=== PATIENT | female | born 1930 | race Caucasian/White ===

== ENCOUNTER 2016-09-03 00:19 | Emergency (ER) | payer MEDICARE ==
[2016-09-03] MEDS ORDERED: fentaNYL* 50 MCG/ML 2 ML VIAL (100 MCG VIAL) IV SLOW PU ONE (02:03)
[2016-09-03 03:04] LABS: Hematocrit 46 % (35-47); Mean Corpuscular HGB Conc 33 g/dl (31-36); Mean Corpuscular Hemoglobin 28 pg (27-31); Mean Corpuscular Volume 85 fL (80-97); Mean Platelet Volume 11 um3 (7.4-10.4); Red Blood Count 5.38 10^6/ul (4.0-5.4); Red Cell Distribution Width 19 % (10.5-15); White Blood Count 13.4 10^3/ul (3.5-10.8)
[2016-09-03 03:20] LABS: Albumin 3.8 g/dL (3.2-5.2); BUN/Creatinine Ratio 21.5 (8-20); Calcium 9.4 mg/dL (8.6-10.3); EGFR African American 54.4 (>60); EGFR Non-African American 42.3 (>60); Globulin 2.6 g/dL (2-4); Potassium 4.8 mmol/L (3.5-5.0); Total Protein 6.4 g/dL (6.4-8.9)
[2016-09-03] MEDS ORDERED: NS 0.9% 1000 ML* 1,000 ML IV ONE (03:23)
[2016-09-03] MEDS ORDERED: fentaNYL PATCH 25 MCG/HR TRANSDERM ONE (03:35)
[2016-09-03 03:56] LABS: Erythrocyte Sed Rate 16 mm/Hr (0-40)
[2016-09-03 04:37] VITALS: BP 106/69
[2016-09-03 06:05] LABS: Urine Bacteria Absent (Absent); Urine Bilirubin Negative (Negative); Urine Glucose Negative (Negative); Urine Nitrite Negative (Negative)
--- NOTE | 2016-09-03 06:11 | ED ---
Bob Ramon Aidan, scribed for Jaquelin Smiley MD on 09/03/16 at 0216 . Back Pain - HPI Summary HPI Summary: 85 y/o female presents to the ED with a complaint of acute, constant, severe (9/ 10), worsening lower back pain that has persisted for about a week or so. Today , the pain became so bad that she was barely able to move. Her pain is aggravated by movement. Hx of chronic back problems, a back injury from skiing years ago, Hx of compression fractures in the back, and Hx of head injury that occurred 60-70 years ago. She was previously diagnosed with multiple myeloma, however, her physician discovered that she does not have multiple myeloma. - History of Current Complaint Stated Complaint: BACK PAIN Time Seen by Provider: 09/03/16 00:46 Hx Obtained From: Patient Hx Last Menstrual Period: unknown Onset/Duration: Sudden Onset, Lasting Weeks, Still Present Onset/Duration: Started Weeks Ago, Still Present Timing: Constant, Lasting Weeks Back Pain Location: Is Discrete @ - lower back Severity Initially: Severe Severity Currently: Severe Pain Intensity: 9 Pain Scale Used: 0-10 Numeric Character: Sharp, Aching Aggravating Symptom(s): Movement Alleviating Symptom(s): Nothing - Morphine alleviates pain Associated Signs And Symptoms: Positive: Negative Related History: Previous Back Injury - with chronic back pain - Allergies/Home Medications Allergies/Adverse Reactions: Allergies Allergy/AdvReac Type Severity Reaction Status Date / Time No Known Allergies Allergy Verified 06/16/15 05:53 PMH/Surg Hx/FS Hx/Imm Hx Endocrine/Hematology History: Denies: Hx Diabetes, Hx Systemic Lupus Erythematosus, Hx Thyroid Disease Cardiovascular History: Reports: Hx Angina, Hx Congestive Heart Failure, Hx Hypercholesterolemia, Other Cardiovascular Problems/Disorders - TACHYCARDIA YEARS AGO Denies: Hx Coronary Artery Disease, Hx Hypertension, Hx Myocardial Infarction , Hx Pacemaker/ICD, Hx Peripheral Vascular Disease, Hx Valvular Heart Disease - ONE TIME VALSAVALSA SYNCOPE Respiratory History: Reports: Hx Pneumonia, Other Respiratory Problems/ Disorders - 06/2011- PNEUMONIA- HAD FLUID REMOVED FROM LUNG Denies: Hx Asthma, Hx Chronic Obstructive Pulmonary Disease (COPD) GI History: Reports: Hx Gastroesophageal Reflux Disease, Other GI Disorders - COLON POLYPS REMOVED- BENIGN History: Reports: Other Problems/Disorders - HX OF BLADDER INFECTION Denies: Hx Dialysis, Hx Renal Disease Musculoskeletal History: Denies: Hx Arthritis, Hx Rheumatoid Arthritis, Hx Osteoporosis Sensory History: Reports: Hx Cataracts, Hx Contacts or Glasses - GLASSES, Hx Hearing Aid Opthamlomology History: Reports: Hx Cataracts, Hx Contacts or Glasses - GLASSES Neurological History: Denies: Hx Seizures, Hx Transient Ischemic Attacks (TIA) Psychiatric History: Denies: Hx Panic Disorder - Cancer History Cancer Type, Location and Year: LEVEL 1 Breast CA Hx Chemotherapy: No Hx Radiation Therapy: No - Surgical History Surgery Procedure, Year, and Place: Lt breast lumpectomy a few years ago; hysterectomy; tonsillectomy; pt wears bilateral hearing aids. Hx Anesthesia Reactions: No Infectious Disease History: Reports: Hx Hepatitis - NO PROBLEMS NOW - Family History Known Family History: Positive: Hypertension - Social History Occupation: Retired [facility]: [facility] Alcohol Use: None Substance Use Type: Reports: None Hx Tobacco Use: No Smoking Status (MU): Never Smoked Tobacco Review of Systems Constitutional: Negative Eyes: Negative ENT: Negative Cardiovascular: Negative Respiratory: Negative Gastrointestinal: Negative Genitourinary: Negative Positive: Arthralgia - back pain. Negative: Myalgia, Decreased ROM, Edema Skin: Negative Neurological: Negative Psychological: Normal All Other Systems Reviewed And Are Negative: Yes Physical Exam - Summary Physical Exam Summary: General: Well appearing, no pain distress Skin: Warm, Skin Color Reflects Adequate Perfusion, Dry Eyes: EOMI, CHITRA ENT: Pharynx normal, TMs normal Neck: Supple, nontender Respiratory: CTA, breath sounds present, no rhonchi, no wheezes, no rales Cardiovascular: RRR, no murmur, no rub, no gallop Abdomen: Soft, nontender, Non-distended, no guarding, no rebound Bowel: Present Musculoskeletal: VIVIEN; POSITIVE: L3 back tenderness, 2+ edema up to the thighs Neuro: Sensory/motor intact, A&Ox3, CN intact 2-12 Psych: Affect/mood appropriate Triage Information Reviewed: Yes Vital Signs On Initial Exam: Initial Vitals Resp 18 09/03/16 02:21 Diagnostics - Vital Signs Vital Signs Pulse Resp BP Pulse Ox 09/03/16 04:56 16 09/03/16 04:34 90 16 106/69 95 09/03/16 03:30 90 16 94/60 96 09/03/16 02:30 90 16 112/76 91 09/03/16 02:21 18 - Laboratory Lab Results: Lab Results 09/03/16 09/03/16 09/03/16 Range/Units 02:50 02:50 05:45 WBC 13.4 H (3.5-10.8) 10^3/ul RBC 5.38 (4.0-5.4) 10^6/ul Hgb 15.0 (12.0-16.0) g/dl Hct 46 (35-47) % MCV 85 (80-97) fL MCH 28 (27-31) pg MCHC 33 (31-36) g/dl RDW 19 H (10.5-15) % Plt Count 188 (150-450) 10^3/ul MPV 11 H (7.4-10.4) um3 Neut % (Auto) 80.8 (38-83) % Lymph % (Auto) 8.1 L (25-47) % [place] % (Auto) 10.1 H (1-9) % Eos % (Auto) 0.3 (0-6) % Baso % (Auto) 0.7 (0-2) % Absolute Neuts (auto) 10.8 H (1.5-7.7) 10^3/ul Absolute Lymphs (auto) 1.1 (1.0-4.8) 10^3/ul Absolute Monos (auto) 1.4 H (0-0.8) 10^3/ul Absolute Eos (auto) 0 (0-0.6) 10^3/ul Absolute Basos (auto) 0.1 (0-0.2) 10^3/ul Absolute Nucleated RBC 0.01 10^3/ul Nucleated RBC % 0.1 ESR 16 (0-40) mm/Hr Sodium 129 L (133-145) mmol/L Potassium 4.8 (3.5-5.0) mmol/L Chloride 92 L (101-111) mmol/L Carbon Dioxide 31 (22-32) mmol/L Anion Gap 6 (2-11) mmol/L BUN 26 H (6-24) mg/dL Creatinine 1.21 H (0.51-0.95) mg/dL Est GFR ( Amer) 54.4 (>60) Est GFR (Non-Af Amer) 42.3 (>60) BUN/Creatinine Ratio 21.5 H (8-20) Glucose 142 H (70-100) mg/dL Calcium 9.4 (8.6-10.3) mg/dL Total Bilirubin 2.00 H (0.2-1.0) mg/dL AST 21 (13-39) U/L ALT 13 (7-52) U/L Alkaline Phosphatase 354 H (34-104) U/L Total Protein 6.4 (6.4-8.9) g/dL Albumin 3.8 (3.2-5.2) g/dL Globulin 2.6 (2-4) g/dL Albumin/Globulin Ratio 1.5 (1-3) Urine Color Shi Urine Appearance Cloudy Urine pH 5.0 (5-9) Ur Specific [place] 1.019 (1.010-1.030) Urine Protein 2+(100 mg/dl) H (Negative) Urine Ketones Negative (Negative) Urine Blood 1+ H (Negative) Urine Nitrate Negative (Negative) Urine Bilirubin Negative (Negative) Urine Urobilinogen Negative (Negative) Ur Leukocyte Esterase Negative (Negative) Urine WBC (Auto) Trace(0-5/hpf) (Absent) Urine RBC (Auto) 3+(>10/hpf) H (Absent) Ur Squamous Epith Cells Present H (Absent) Urine Bacteria Absent (Absent) Hyaline Casts Present H (Absent) Urine Glucose Negative (Negative) Result Diagrams: 09/03/16 02:50 09/03/16 02:50 Lab Statement: Any lab studies that have been ordered have been reviewed, and results considered in the medical decision making process. - CT LUMBAR SPINE CT CT Interpretation: Positive (See Comments) - IMPRESSION: Age-indeterminate compression fracture of L1 likely chronic, not seen on the prior examination. 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 Pt sent with a 25 mcg patch on. pt had mildly elevated wbc urine showed rbc's but no bacteria and wbc and will be cultured - Diagnoses Provider Diagnoses: Lumbar pain Discharge - Discharge Plan Condition: Stable Disposition: HOME The documentation as recorded by the Bob agrawal Aidan accurately reflects the service I personally performed and the decisions made by me, Jaquelin Smiley MD.
--- NOTE | 2016-09-03 13:04 | RAD ---
INDICATION: Exacerbation of chronic back pain in a patient with multiple myeloma COMPARISON: MRI of the lumbar spine with and without contrast dated February 12, [address] abdomen pelvis dated May 07, 2015. TECHNIQUE: Contiguous axial sections were obtained beginning lower thoracic vertebra and continuing through the sacrum. Images were reconstructed in the sagittal and coronal planes. FINDINGS: There is compression deformity of the L1 vertebral body similar in appearance to the previous CT examination. There is sclerotic change and shortening of the inferior endplate of L3 and the superior endplate of L4, also similar to the previous CT examination. Degenerative changes include loss of intervertebral disc height and vacuum disc phenomenon at the lower lumbar levels. The vacuum disc phenomenon at L4/L5 is new when compared to the previous CT examination. There is no hyperdense material in the thecal canal to indicate acute hemorrhage. Degenerative changes at multiple lumbar levels appear to cause central canal stenosis. There is a partially visualized right pleural effusion. Atherosclerotic calcification is seen at the infrarenal abdominal aorta extending into the bilateral iliac arteries. IMPRESSION: 1. Chronic and degenerative changes of the lumbar spine as described above. New findings since the May 07, 2015 CT of the abdomen and pelvis include vacuum disc phenomenon at L4/L5. 2. There is likely central canal or neural foraminal stenoses at the lower lumbar levels. If it will influence clinical management further characterization can be made with MRI of the lumbar spine. 3. There is a partially visualized right-sided pleural effusion that may be unchanged since the May 25, 2015 CT of the chest. The left pleural effusion appears to have resolved that was seen on the previous chest CT.
== END 2016-09-03 06:38 | disposition home or self-care (01) ==
LOC: ED 00:19
DX: M54.5 Low back pain (principal); I20.9 Angina pectoris, unspecified; I50.9 Heart failure, unspecified; E78.00 Pure hypercholesterolemia, unspecified; K21.9 Gastro-esophageal reflux disease without esophagitis; Z85.3 Personal history of malignant neoplasm of breast; Z90.12 Acquired absence of left breast and nipple; Z90.710 Acquired absence of both cervix and uterus
CPT/HCPCS: 36415; 72131; 80053; 81003; 81015; 85025; 85652; 96361; 96374; 99283; A9270-GY; J3010

== ENCOUNTER 2017-05-07 20:12 | Emergency (ER) | payer MEDICARE ==
[2017-05-07] MEDS ORDERED: NS 0.9% 1000 ML* 1,000 ML IV ONE (20:48)
--- NOTE | 2017-05-07 21:33 | RAD ---
INDICATION: Intracranial injury COMPARISON: CT brain June 16, 2015 TECHNIQUE: Noncontrast axial source images were acquired from the skull base to the vertex. FINDINGS: Ventricles/sulci: There is cortical atrophy with compensatory dilatation of the CSF spaces. Brain parenchyma: There is periventricular and subcortical white matter change compatible with chronic ischemia. Intracranial hemorrhage:None. Extra-axial spaces: There are no abnormal extra axial fluid collections or evidence of extra-axial mass. Calvarium: There is no calvarial fracture or other calvarial abnormality. Scalp: There is no evidence of scalp or extracalvarial soft tissue abnormality. Paranasal sinuses/mastoid: The paranasal sinuses and mastoid air cells are clear. Other: None. IMPRESSION: CORTICAL ATROPHY WITH CHRONIC MICROVASCULAR ISCHEMIC CHANGES. NO ACUTE FINDINGS.
--- NOTE | 2017-05-07 21:36 | RAD ---
INDICATION: Injury. Syncope. COMPARISON: Chest x-ray June 16, 2015; CTA chest May 25, 2015 TECHNIQUE: AP seated and lateral views were obtained. FINDINGS: Bones/Soft Tissues: There are no acute bony findings. There is osteopenia with kyphosis and multiple mid thoracic compression deformities. Compression deformities were present on the earlier CT as well but these may have progressed. Cardiomediastinal: The cardiac silhouette is mildly enlarged. Lungs: There is mild bibasilar hypoventilation. There are mild chronic appearing interstitial changes Pleura: There are bilateral pleural effusions right greater than left. Other: None IMPRESSION: MILD CHRONIC APPEARING INTERSTITIAL CHANGES WITH BIBASILAR HYPOVENTILATION AND SMALL BILATERAL EFFUSIONS.
--- NOTE | 2017-05-07 21:40 | RAD ---
INDICATION: Left shoulder pain COMPARISON: None TECHNIQUE: Routine frontal, Y and axial views were obtained. FINDINGS: There is marked osteopenia. There are cortical irregularities about the greater tuberosity which could be related to a prior injury. If there is persistent pain, suggest follow-up. 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 There are findings of calcific tendinitis. IMPRESSION: NO ACUTE FINDINGS.. UNDERLYING OSTEOARTHRITIS AND CALCIFIC TENDINITIS
[2017-05-07 22:07] LABS: INR 1.09 (0.77-1.02)
[2017-05-07 22:13] LABS: ABS Basophils 0 10^3/ul (0-0.2); ABS Eosinophils 0.1 10^3/ul (0-0.6); ABS Lymphocytes 0.8 10^3/ul (1.0-4.8); ABS Monocytes 0.6 10^3/ul (0-0.8); ABS Neutrophils 6.5 10^3/ul (1.5-7.7); ABS Nucleated RBC 0 10^3/ul; Eosinophil % 0.7 % (0-6); Hematocrit 46 % (35-47); Hemoglobin 15.4 g/dl (12.0-16.0); Mean Corpuscular HGB Conc 33 g/dl (31-36); Mean Corpuscular Hemoglobin 30 pg (27-31); Mean Corpuscular Volume 92 fL (80-97); Mean Platelet Volume 10 um3 (7.4-10.4); Nucleated Red Blood Cells % 0.1; Platelet Count 196 10^3/ul (150-450); Red Blood Count 5.07 10^6/ul (4.0-5.4); Red Cell Distribution Width 15 % (10.5-15)
[2017-05-07 22:19] LABS: EGFR Non-African American 40.3 (>60)
[2017-05-07 23:12] VITALS: BP 123/82
--- NOTE | 2017-05-08 05:57 | ED ---
Pratik Ramon Julia, scribed for Trino Aguilar MD on 05/07/17 at 2050 . Syncope/Near Syncope - HPI Summary HPI Summary: This patient is a 86 year old F BIBA to [facility] due to a syncopal fall occurring a few hours ago. Patient reports chest pain, L shoulder pain, and L knee pain. The patient rates the pain 2/10 in severity. She states she does not know what happened before she fell, and woke up on the ground with her current symptoms. Patient has a history of multiple myoloma and compression fractures of the spine. Patient has MOLST, limiting care. - History Of Current Complaint Chief Complaint: EDChestPainROMI Time Seen by Provider: 05/07/17 20:31 Hx Obtained From: Patient, Medical Records Onset/Duration: Sudden Onset Context: Unwitnessed - unknown, Loss Of Consciousness Activity At Onset: Other - standing Associated Signs And Symptoms: Chest Pain, Other - L shoulder and L knee Related History: Similar Episode/Dx as - mulitiple myoloma, compression fx - Allergies/Home Medications Allergies/Adverse Reactions: Allergies Allergy/AdvReac Type Severity Reaction Status Date / Time No Known Allergies Allergy Verified 06/16/15 05:53 Home Medications: Home Medications Acetaminophen TAB* [Tylenol TAB*] 650 mg PO Q6H PRN 05/07/17 [History Confirmed 05/07/17] Al Hydrox/Mg Hydrox/Vanna BULK* [Mylanta - BULK BOT*] 15 ml PO Q4HR PRN 05/07/17 [History Confirmed 05/07/17] Calcitonin NASAL(NF) [Fortical(NR)] 1 spray NASAL DAILY 05/07/17 [History Confirmed 05/07/17] Carbamide Peroxide 6.5% OTIC* [DEBROX 6.5% Otic*] 5 drop BOTH EARS MONTHLY 05/07 [History Confirmed 05/07/17] Cholecalciferol (Vitamin D3) [Vitamin D3] 1,000 unit PO DAILY 05/07/17 [History Confirmed 05/07/17] Conjugated Estrogens VAG CM* [Premarin VAG CREAM*] 1 applic VAGINAL WEEKLY 05/07 [History Confirmed 05/07/17] Cyanocobalamin (Vitamin B-12) [Vitamin B-12] 500 mcg SL DAILY 05/07/17 [History Confirmed 05/07/17] Cyclophosphamide 50 mg PO WEEKLY 05/07/17 [History Confirmed 05/07/17] Fondaparinux* [Arixtra*] 7.5 mg SUBCUT DAILY 05/07/17 [History Confirmed ] Metoprolol Tartrate TAB* [Lopressor TAB*] 12.5 mg PO BID 05/07/17 [History Confirmed 05/07/17] Morphine Sulfate [Morphine Sulfate ER] 60 mg PO Q8HR 05/07/17 [History Confirmed 05/07/17] Ondansetron ODT TAB* [Zofran 4 MG Odt TAB*] 8 mg PO TID PRN 05/07/17 [History Confirmed 05/07/17] Potassium Chlor TAB (NF) [Kaon-Cl-10 TAB (NF)] 10 meq PO BID 05/07/17 [History Confirmed 05/07/17] Sennosides/Docusate Sodium [Senna-S Tablet] 2 tab PO BID PRN 05/07/17 [History Confirmed 05/07/17] Sucralfate SUSP (NF) [Carafate SUSP (NF)] 10 ml PO Q6HR PRN 05/07/17 [History Confirmed 05/07/17] PMH/Surg Hx/FS Hx/Imm Hx Endocrine/Hematology History: Denies: Hx Diabetes, Hx Systemic Lupus Erythematosus, Hx Thyroid Disease Cardiovascular History: Reports: Hx Angina, Hx Congestive Heart Failure, Hx Hypercholesterolemia, Other Cardiovascular Problems/Disorders - TACHYCARDIA YEARS AGO Denies: Hx Coronary Artery Disease, Hx Hypertension, Hx Myocardial Infarction , Hx Pacemaker/ICD, Hx Peripheral Vascular Disease, Hx Valvular Heart Disease - ONE TIME VALSAVALSA SYNCOPE Respiratory History: Reports: Hx Pneumonia, Other Respiratory Problems/ Disorders - 06/2011- PNEUMONIA- HAD FLUID REMOVED FROM LUNG Denies: Hx Asthma, Hx Chronic Obstructive Pulmonary Disease (COPD) GI History: Reports: Hx Gastroesophageal Reflux Disease, Other GI Disorders - COLON POLYPS REMOVED- BENIGN History: Reports: Other Problems/Disorders - HX OF BLADDER INFECTION Denies: Hx Dialysis, Hx Renal Disease Musculoskeletal History: Denies: Hx Arthritis, Hx Rheumatoid Arthritis, Hx Osteoporosis Sensory History: Reports: Hx Cataracts, Hx Contacts or Glasses - GLASSES, Hx Hearing Aid Opthamlomology History: Reports: Hx Cataracts, Hx Contacts or Glasses - GLASSES Neurological History: Denies: Hx Seizures, Hx Transient Ischemic Attacks (TIA) Psychiatric History: Denies: Hx Panic Disorder - Cancer History Cancer Type, Location and Year: LEVEL 1 Breast CA. multiple myolma Hx Chemotherapy: Yes Hx Radiation Therapy: No - Surgical History Surgery Procedure, Year, and Place: Lt breast lumpectomy a few years ago; hysterectomy; tonsillectomy; pt wears bilateral hearing aids. Hx Anesthesia Reactions: No Infectious Disease History: Yes Infectious Disease History: Reports: Hx Hepatitis - NO PROBLEMS NOW Denies: Traveled Outside the [place] in Last 30 Days - Family History Known Family History: Positive: Hypertension - Social History Lives: [facility] Alcohol Use: None Substance Use Type: Reports: None Hx Tobacco Use: No Smoking Status (MU): Never Smoked Tobacco Review of Systems Positive: Chest Pain Positive: Myalgia - L shoulder and L knee All Other Systems Reviewed And Are Negative: Yes Physical Exam - Summary Physical Exam Summary: Appearance: Well appearing, no pain distress, Fenanol patch on L chest Skin: warm, dry, reflects adequate perfusion Head/face: abrasion to nose and upper lip and midline, no swelling of the scalp Eyes: EOMI, CHITRA, implanted lenses bilaterally ENT: dried blood in R nare Neck: supple, non-tender Respiratory: CTA, breath sounds present Cardiovascular: RRR, pulses symmetrical Abdomen: dsitened abdomen, tympanic, nontender soft Bowel: present Musculoskeletal: , strength/ROM intact, kyphotic curve to thoracic spin, nakul cool to touch BLE up to knees, no bruises or abrasions to extremities, bilateral pitting edema to knees Neuro: normal, sensory motor intact, A&Ox3 Triage Information Reviewed: Yes Vital Signs On Initial Exam: Initial Vitals Temp Pulse Resp BP Pulse Ox 97.9 F 82 16 123/80 95 05/07/17 20:21 05/07/17 20:21 05/07/17 20:21 05/07/17 20:21 05/07/17 20:21 Vital Signs Reviewed: Yes Diagnostics - Vital Signs Vital Signs Temp Pulse Resp BP Pulse Ox 05/07/17 20:21 97.9 F 82 16 123/80 95 - Laboratory Lab Results: Lab Results 05/07/17 05/07/17 05/07/17 Range/Units 21:50 21:50 21:50 WBC 8.0 (3.5-10.8) 10^3/ul RBC 5.07 (4.0-5.4) 10^6/ul Hgb 15.4 (12.0-16.0) g/dl Hct 46 (35-47) % MCV 92 (80-97) fL MCH 30 (27-31) pg MCHC 33 (31-36) g/dl RDW 15 (10.5-15) % Plt Count 196 (150-450) 10^3/ul MPV 10 (7.4-10.4) um3 Neut % (Auto) 81.3 (38-83) % Lymph % (Auto) 10.0 L (25-47) % [place] % (Auto) 7.6 (1-9) % Eos % (Auto) 0.7 (0-6) % Baso % (Auto) 0.4 (0-2) % Absolute Neuts (auto) 6.5 (1.5-7.7) 10^3/ul Absolute Lymphs (auto) 0.8 L (1.0-4.8) 10^3/ul Absolute Monos (auto) 0.6 (0-0.8) 10^3/ul Absolute Eos (auto) 0.1 (0-0.6) 10^3/ul Absolute Basos (auto) 0 (0-0.2) 10^3/ul Absolute Nucleated RBC 0 10^3/ul Nucleated RBC % 0.1 INR (Anticoag Therapy) 1.09 H (0.77-1.02) Sodium 134 (133-145) mmol/L Potassium 4.2 (3.5-5.0) mmol/L Chloride 92 L (101-111) mmol/L Carbon Dioxide 35 H (22-32) mmol/L Anion Gap 7 (2-11) mmol/L BUN 53 H (6-24) mg/dL Creatinine 1.26 H (0.51-0.95) mg/dL Est GFR ( Amer) 51.8 (>60) Est GFR (Non-Af Amer) 40.3 (>60) BUN/Creatinine Ratio 42.1 H (8-20) Glucose 185 H (70-100) mg/dL Calcium 9.9 (8.6-10.3) mg/dL Total Bilirubin 1.00 (0.2-1.0) mg/dL AST 24 (13-39) U/L ALT 15 (7-52) U/L Alkaline Phosphatase 358 H (34-104) U/L Total Protein 7.1 (6.4-8.9) g/dL Albumin 4.3 (3.2-5.2) g/dL Globulin 2.8 (2-4) g/dL Albumin/Globulin Ratio 1.5 (1-3) Result Diagrams: 05/07/17 21:50 05/07/17 21:50 Lab Statement: Any lab studies that have been ordered have been reviewed, and results considered in the medical decision making process. - Radiology CXR Radiology Interpretation Completed By: Radiologist - MILD CHRONIC APPEARING INTERSTITIAL CHANGES WITH BIBASILAR HYPOVENTILATION AND SMALL BILATERAL EFFUSIONS. ED Physician has reviewed this report. Shoulder Radiology Interpretation Completed By: Radiologist - NO ACUTE FINDINGS.. UNDERLYING OSTEOARTHRITIS AND CALCIFIC TENDINITIS. ED Physician has reviewed this report. - CT Brain CT Interpretation Completed By: Radiologist - CORTICAL ATROPHY WITH CHRONIC MICROVASCULAR ISCHEMIC CHANGES. NO ACUTE FINDINGS. ED Physician has reviewed this report. - EKG 1999 Cardiac Rate: NL - at 77 BPM EKG Rhythm: Sinus Rhythm ST Segment: Non-Specific EKG Interpretation: normal axis artifact through inferior leads Course/Dx Course Of Treatment: Pt with mult minor injuries. In SNF with MOLST indicating DNR with comfort care/limited care. Pt found to have no sakshi injuries. Hydrated and stable for discharge. F/U with PMD. - Diagnoses Provider Diagnoses: Syncope, Facial abrasion, Closed head injury, Multiple contusions Discharge - Discharge Plan Condition: Good Disposition: [facility] FACILITY Patient Education Materials: Syncope (ED), Head Injury (ED) Referrals: Isidra Beckwith MD [Primary Care Provider] - Additional Instructions: Assist with restroom. No new fractures noted. No new pain. Follow up with primary doctor with call in morning. Return if worse, new symptoms or other concerns. The documentation as recorded by the Pratik agrawal Julia accurately reflects the service I personally performed and the decisions made by , Trino Aguilar MD.
== END 2017-05-07 23:28 ==
LOC: ED 20:12
DX: S00.81XA Abrasion of other part of head, initial encounter (principal); S09.90XA Unspecified injury of head, initial encounter; S00.83XA Contusion of other part of head, initial encounter; R07.9 Chest pain, unspecified; M25.512 Pain in left shoulder; M25.562 Pain in left knee; R55 Syncope and collapse; W19.XXXA Unspecified fall, initial encounter; Y92.9 Unspecified place or not applicable
CPT/HCPCS: 36415; 70450; 71046; 80053; 85025; 85610; 93005; 96360; 96361; 99284

== ENCOUNTER 2017-09-06 11:23 | Inpatient (IN) | payer MEDICARE, OTHER ==
[2017-09-06 12:41] LABS: Urine Appearance Cloudy; Urine Blood Negative (Negative); Urine Color Amber; Urine Ketones Negative (Negative); Urine Protein Negative (Negative); Urine Specific Gravity 1.013 (1.010-1.030); Urine Urobilinogen Negative (Negative)
--- NOTE | 2017-09-06 13:07 | RAD ---
INDICATION: Weakness, fall. COMPARISON: Comparison is made with prior chest x-ray study from May 07, 2017. Correlation is also made with a study from December 21, 2014. TECHNIQUE: A single AP view of the chest was obtained. FINDINGS: The heart is moderately enlarged and unchanged from the prior exam. There is a small 6 mm a nodule which projects over the right upper lobe which is unchanged most consistent with old granulomatous disease. There is mild prominence of the interstitial markings and small bilateral pleural effusions suggestive of mild congestive heart failure. IMPRESSION: FINDINGS SUGGESTIVE OF MILD CONGESTIVE HEART FAILURE.
--- NOTE | 2017-09-06 13:08 | RAD ---
Indication: Right hip injury. 2 views of the right hip and AP view the pelvis demonstrates fracture through the neck of the right femur with overriding of the fracture fragments. Pelvic ring is intact. IMPRESSION: Fracture through the neck of the right femur with overriding of the fracture fragments.
[2017-09-06 13:10] LABS: ABS Basophils 0 10^3/ul (0-0.2); ABS Eosinophils 0 10^3/ul (0-0.6); ABS Lymphocytes 0.8 10^3/ul (1.0-4.8); ABS Monocytes 0.8 10^3/ul (0-0.8); ABS Nucleated RBC 0 10^3/ul; Eosinophil % 0.1 % (0-6); Hematocrit 48 % (35-47); Lymphocyte % 6.7 % (25-47); Mean Corpuscular HGB Conc 34 g/dl (31-36); Mean Corpuscular Hemoglobin 31 pg (27-31); Mean Corpuscular Volume 92 fL (80-97); Mean Platelet Volume 9.4 um3 (7.4-10.4); Nucleated Red Blood Cells % 0.2; Platelet Count 367 10^3/ul (150-450); Red Blood Count 5.22 10^6/ul (4.00-5.40); Red Cell Distribution Width 17 % (10.5-15); White Blood Count 11.6 10^3/ul (3.5-10.8)
[2017-09-06] MEDS: NS 0.9% 1000 ML* 1,000 ML IV SCH ×3 (13:19→21:55)
[2017-09-06 13:30] LABS: INR 1.17 (0.77-1.02)
[2017-09-06 13:36] LABS: EGFR Non-African American 35.9 (>60)
--- NOTE | 2017-09-06 14:50 | RAD ---
Indication: Right hip fracture. CT of the pelvis was obtained in the axial plane. Sagittal and coronal reconstructed images were obtained. There is a mildly comminuted fracture of the neck of the right femur. There appears to be diffuse osteopenia noted. Overriding of the fracture fragments is noted. The pelvic ring is grossly intact. The lower lumbar spine and pelvis are otherwise unremarkable. The gallbladder is low-lying and within the pelvis with likely milk of calcium in the dependent portion of the gallbladder which is within the iliac fossa. IMPRESSION: Mildly comminuted fracture neck of the femur with overriding of the fracture fragments.
--- NOTE | 2017-09-06 15:10 | ED ---
Isabel Ramon Jade, scribed for Shayan Garrett MD on 09/06/17 at 1205 . Lower Extremity - HPI Summary HPI Summary: Pt is an 86 y/o female BIBA who c/o right hip pain s/p fall. She was found this morning by EMS, and the pt is unsure whether the fall was this morning or last night. Pt was going to the bathroom without her walker and fell on her right hip. Pain is described as 8/10 in severity and is sharp in quality. She denies any LOC or abdominal pain. Pt cannot move her right leg due to pain. She also states her mouth feels very dry. - History of Current Complaint Stated Complaint: ABD PAIN Time Seen by Provider: 09/06/17 11:42 Hx Obtained From: Patient, EMS Hx Last Menstrual Period: unknown Mechanism Of Injury: Fall From A Standing Position Onset/Duration: Still Present Severity Currently: Severe Pain Intensity: 8 Pain Scale Used: 0-10 Numeric Timing: Constant Location: Is Discrete @ - Right hip Character Of Pain: Sharp Associated Signs And Symptoms: Negative: Abdominal Pain Aggravating Factor(s): Movement Alleviating Factor(s): Nothing Able to Bear Weight: No - Allergies/Home Medications Allergies/Adverse Reactions: Allergies Allergy/AdvReac Type Severity Reaction Status Date / Time No Known Allergies Allergy Verified 06/16/15 05:53 Home Medications: Home Medications Conjugated Estrogens VAG CM* [Premarin VAG CREAM*] 1 applic VAGINAL MOFR [History Confirmed 09/06/17] DULoxetine DR CAP* [Cymbalta CAP*] 20 mg PO DAILY 09/06/17 [History Confirmed ] Docusate CAP* [Colace Cap*] 200 mg PO DAILY PRN 09/06/17 [History Confirmed ] Fluoride (Sodium) [Prevident 5000 Plus] 1.1 % PO BID 09/06/17 [History Confirmed 09/06/17] Saliva Substitute (NF) [Biotene Moisturizing Mouth (NF)] 2 spray PO QAM [History Confirmed 09/06/17] Spironolactone TAB* [Aldactone TAB*] 25 mg PO BID 09/06/17 [History Confirmed ] fentaNYL PATCH 12 MCG/HR * [Duragesic Patch 12 Mcg/Hr *] 12 mcg TRANSDERM Q72H 09/06/17 [History Confirmed 09/06/17] PMH/Surg Hx/FS Hx/Imm Hx Endocrine/Hematology History: Denies: Hx Diabetes, Hx Systemic Lupus Erythematosus, Hx Thyroid Disease Cardiovascular History: Reports: Hx Angina, Hx Congestive Heart Failure, Hx Hypercholesterolemia, Other Cardiovascular Problems/Disorders - TACHYCARDIA YEARS AGO Denies: Hx Coronary Artery Disease, Hx Hypertension, Hx Myocardial Infarction , Hx Pacemaker/ICD, Hx Peripheral Vascular Disease, Hx Valvular Heart Disease - ONE TIME VALSAVALSA SYNCOPE Respiratory History: Reports: Hx Pneumonia, Other Respiratory Problems/ Disorders - 06/2011- PNEUMONIA- HAD FLUID REMOVED FROM LUNG Denies: Hx Asthma, Hx Chronic Obstructive Pulmonary Disease (COPD) GI History: Reports: Hx Gastroesophageal Reflux Disease, Other GI Disorders - COLON POLYPS REMOVED- BENIGN History: Reports: Other Problems/Disorders - HX OF BLADDER INFECTION Denies: Hx Dialysis, Hx Renal Disease Musculoskeletal History: Denies: Hx Arthritis, Hx Rheumatoid Arthritis, Hx Osteoporosis Sensory History: Reports: Hx Cataracts, Hx Contacts or Glasses - GLASSES, Hx Hearing Aid Opthamlomology History: Reports: Hx Cataracts, Hx Contacts or Glasses - GLASSES Neurological History: Denies: Hx Seizures, Hx Transient Ischemic Attacks (TIA) Psychiatric History: Denies: Hx Panic Disorder - Cancer History Cancer Type, Location and Year: LEVEL 1 Breast CA. multiple myolma Hx Chemotherapy: Yes Hx Radiation Therapy: No - Surgical History Surgery Procedure, Year, and Place: Lt breast lumpectomy a few years ago; hysterectomy; tonsillectomy; pt wears bilateral hearing aids. Hx Anesthesia Reactions: No Infectious Disease History: Reports: Hx Hepatitis - NO PROBLEMS NOW - Family History Known Family History: Positive: Hypertension - Social History Alcohol Use: None Substance Use Type: Reports: None Hx Tobacco Use: No Smoking Status (MU): Never Smoked Tobacco Review of Systems Negative: Abdominal Pain Positive: Arthralgia - Right hip pain Neurological: Other - NEGATIVE: LOC All Other Systems Reviewed And Are Negative: Yes Physical Exam - Summary Physical Exam Summary: General: well-appearing, no pain distress Skin: warm, color reflects adequate perfusion, dry Head: normal Eyes: EOMI, CHITRA ENT: oral mucosa dry. Neck: supple, nontender Respiratory: CTA, breath sounds present Cardiovascular: RRR Abdomen: soft, nontender Bowel: present Musculoskeletal: Tender to palpation to right hip. Right leg is slightly shortened and externally rotated. Neurological: sensory/motor intact, A&O x3 Psychological: affect/mood appropriate Triage Information Reviewed: Yes Vital Signs On Initial Exam: Initial Vitals Temp Pulse Resp BP Pulse Ox 98.1 F 109 18 104/65 95 09/06/17 11:40 09/06/17 11:40 09/06/17 11:40 09/06/17 11:40 09/06/17 11:40 Vital Signs Reviewed: Yes Diagnostics - Vital Signs Vital Signs Temp Pulse Resp BP Pulse Ox 09/06/17 11:40 98.1 F 109 18 104/65 95 - Laboratory Lab Results: Lab Results 09/06/17 09/06/17 09/06/17 Range/Units 12:22 12:24 12:25 WBC 11.6 H (3.5-10.8) 10^3/ul RBC 5.22 (4.00-5.40) 10^6/ul Hgb 16.0 (12.0-16.0) g/dl Hct 48 H (35-47) % MCV 92 (80-97) fL MCH 31 (27-31) pg MCHC 34 (31-36) g/dl RDW 17 H (10.5-15) % Plt Count 367 (150-450) 10^3/ul MPV 9.4 (7.4-10.4) um3 Neut % (Auto) 85.9 H (38-83) % Lymph % (Auto) 6.7 L (25-47) % [place] % (Auto) 7.1 H (0-7) % Eos % (Auto) 0.1 (0-6) % Baso % (Auto) 0.2 (0-2) % Absolute Neuts (auto) 10.0 H (1.5-7.7) 10^3/ul Absolute Lymphs (auto) 0.8 L (1.0-4.8) 10^3/ul Absolute Monos (auto) 0.8 (0-0.8) 10^3/ul Absolute Eos (auto) 0 (0-0.6) 10^3/ul Absolute Basos (auto) 0 (0-0.2) 10^3/ul Absolute Nucleated RBC 0 10^3/ul Nucleated RBC % 0.2 INR (Anticoag Therapy) 1.17 H (0.77-1.02) APTT 32.7 (26.0-36.3) seconds Sodium (135-145) mmol/L Potassium Chloride (101-111) mmol/L Carbon Dioxide (22-32) mmol/L Anion Gap (2-11) mmol/L BUN (6-24) mg/dL Creatinine (0.51-0.95) mg/dL Est GFR ( Amer) (>60) Est GFR (Non-Af Amer) (>60) BUN/Creatinine Ratio (8-20) Glucose (70-100) mg/dL Lactic Acid (0.5-2.0) mmol/L Calcium (8.6-10.3) mg/dL Magnesium (1.9-2.7) mg/dL Total Bilirubin (0.2-1.0) mg/dL AST ALT (7-52) U/L Alkaline Phosphatase (34-104) U/L Troponin I (<0.04) ng/mL C-Reactive Protein (<8.01) mg/L B-Natriuretic Peptide ( - 100) pg/mL Total Protein (6.4-8.9) g/dL Albumin (3.2-5.2) g/dL Globulin (2-4) g/dL Albumin/Globulin Ratio (1-3) Lipase (11.0-82.0) U/L TSH (0.34-5.60) mcIU/mL Urine Color Shi Urine Appearance Cloudy Urine pH 5.0 (5-9) Ur Specific [place] 1.013 (1.010-1.030) Urine Protein Negative (Negative) Urine Ketones Negative (Negative) Urine Blood Negative (Negative) Urine Nitrate Negative (Negative) Urine Bilirubin Negative (Negative) Urine Urobilinogen Negative (Negative) Ur Leukocyte Esterase Negative (Negative) Urine Glucose Negative (Negative) 09/06/17 09/06/17 09/06/17 Range/Units 12:25 12:25 12:25 WBC (3.5-10.8) 10^3/ul RBC (4.00-5.40) 10^6/ul Hgb (12.0-16.0) g/dl Hct (35-47) % MCV (80-97) fL MCH (27-31) pg MCHC (31-36) g/dl RDW (10.5-15) % Plt Count (150-450) 10^3/ul MPV (7.4-10.4) um3 Neut % (Auto) (38-83) % Lymph % (Auto) (25-47) % [place] % (Auto) (0-7) % Eos % (Auto) (0-6) % Baso % (Auto) (0-2) % Absolute Neuts (auto) (1.5-7.7) 10^3/ul Absolute Lymphs (auto) (1.0-4.8) 10^3/ul Absolute Monos (auto) (0-0.8) 10^3/ul Absolute Eos (auto) (0-0.6) 10^3/ul Absolute Basos (auto) (0-0.2) 10^3/ul Absolute Nucleated RBC 10^3/ul Nucleated RBC % INR (Anticoag Therapy) (0.77-1.02) APTT (26.0-36.3) seconds Sodium 133 L (135-145) mmol/L Potassium TNP Chloride 93 L (101-111) mmol/L Carbon Dioxide 28 (22-32) mmol/L Anion Gap 12 H (2-11) mmol/L BUN 68 H (6-24) mg/dL Creatinine 1.39 H (0.51-0.95) mg/dL Est GFR ( Amer) 43.5 (>60) Est GFR (Non-Af Amer) 35.9 (>60) BUN/Creatinine Ratio 48.9 H (8-20) Glucose 153 H (70-100) mg/dL Lactic Acid 1.9 (0.5-2.0) mmol/L Calcium 9.5 (8.6-10.3) mg/dL Magnesium 2.5 (1.9-2.7) mg/dL Total Bilirubin 1.80 H (0.2-1.0) mg/dL AST TNP ALT 11 (7-52) U/L Alkaline Phosphatase 262 H (34-104) U/L Troponin I 0.07 H* (<0.04) ng/mL C-Reactive Protein 79.77 H (<8.01) mg/L B-Natriuretic Peptide 705 H ( - 100) pg/mL Total Protein 6.7 (6.4-8.9) g/dL Albumin 3.9 (3.2-5.2) g/dL Globulin 2.8 (2-4) g/dL Albumin/Globulin Ratio 1.4 (1-3) Lipase < 10 L (11.0-82.0) U/L TSH 2.94 (0.34-5.60) mcIU/mL Urine Color Urine Appearance Urine pH (5-9) Ur Specific [place] (1.010-1.030) Urine Protein (Negative) Urine Ketones (Negative) Urine Blood (Negative) Urine Nitrate (Negative) Urine Bilirubin (Negative) Urine Urobilinogen (Negative) Ur Leukocyte Esterase (Negative) Urine Glucose (Negative) Result Diagrams: 09/06/17 12:25 09/06/17 12:25 Lab Statement: Any lab studies that have been ordered have been reviewed, and results considered in the medical decision making process. - Radiology Hip/Pel XR Xray Interpretation: Positive (See Comments) - 11:53: Fracture through the neck of the right femur with overriding of the fracture fragments. ED physician reviewed radiology report. Radiology Interpretation Completed By: Radiologist CXR Xray Interpretation: Positive (See Comments) - 11:52: FINDINGS SUGGESTIVE OF MILD CONGESTIVE HEART FAILURE. ED physician reviewed radiology report. Radiology Interpretation Completed By: Radiologist - EKG 12:06 Cardiac Rate: Tachycardia - 129 bpm EKG Rhythm: Sinus Rhythm Ectopy: PACs - Posterior EKG Interpretation: Flipped Ts in inferior and lateral leads, ectopic atrial tachycardia Lower Extremity Course/Dx - Course Course Of Treatment: DISCUSSED WITH DR YESENIA CHAN. SHE ASKED FOR THE HOSPITALIST TO ADMIT THE PATIENT. DR CHAN ALSO TOLD ME THAT THE PATIENT'S ORTHOPEDIST PREFERENCE IS DR ABDI[facility]. DISCUSSED WITH THE HOSPITALIST AND DR KEYS. ADMIT HOSPITALIST. - Diagnoses Provider Diagnoses: Closed right hip fracture, Fall Discharge - Sign-Out/Discharge Documenting (check all that apply): Discharge/Admit/Transfer - Admit - Discharge Plan Condition: Stable Disposition: ADMITTED TO [facility] Referrals: Yesenia Chan MD [Primary Care Provider] - - Billing Disposition and Condition Condition: STABLE Disposition: Admitted to [facility] The documentation as recorded by the Isabel agrawal Jade accurately reflects the service I personally performed and the decisions made by me, Shayan Garrett MD.
[2017-09-06] MEDS ORDERED: NS 0.9% 500 ML* 500 ML IV ONE (16:17)
[2017-09-06] MEDS ORDERED: Albuterol 2.5 MG/3 ML NEB.SOL* (0.083%) INH PRN (16:36)
[2017-09-06] MEDS ORDERED: Ondansetron INJ* 2 MG/ML VIAL IV PRN (16:36)
[2017-09-06] MEDS ORDERED: Al Hydrox/Mg Hydrox/Simet LIQ* 30 ML UDC PO PRN (16:36)
[2017-09-06] MEDS ORDERED: Magnesium Hydroxide LIQ* 30 ML UDC PO PRN (16:36)
[2017-09-06] MEDS ORDERED: Artificial Tears* 15 ML BTL BOTH EYES PRN (16:51)
[2017-09-06] MEDS ORDERED: Loperamide CAP* 2 MG PO PRN (16:51)
[2017-09-06] MEDS ORDERED: Morphine VIAL* 4 MG/ML VIAL (1 ml vial) IV ONE (17:59)
--- NOTE | 2017-09-06 18:01 | RAD ---
INDICATION: Fall. COMPARISON: Comparison is made with a prior chest x-ray study from 5 hours earlier. TECHNIQUE: A portable view of the chest was obtained. FINDINGS: The heart is moderately enlarged and unchanged from the prior exam. There is a small calcified nodule which projects over the right upper lobe consistent with old granulomatous disease. There is mild prominence of the interstitial markings and small bilateral pleural effusions which appear unchanged suggestive of congestive heart failure. No pneumothorax is seen. IMPRESSION: FINDINGS SUGGESTIVE OF CONGESTIVE HEART FAILURE, UNCHANGED.
[2017-09-06] MEDS: fentaNYL PATCH 12 MCG/HR TRANSDERM SCH (19:00)
[2017-09-06] MEDS: oxyCODONE/Acetamin 5/325 MG* TAB PO PRN (19:02)
[2017-09-06] MEDS: Morphine VIAL* 4 MG/ML VIAL (1 ml vial) IV PRN (19:47)
[2017-09-06] MEDS ORDERED: Diltiazem IV VIAL* 125 MG in NS 0.9% 100 ML* 100 ML IVPB SCH (20:30)
[2017-09-06] MEDS ORDERED: Heparin VIAL(*) 5000 UNITS/ML VIAL (FIVE THOUSAND) SUBCUT SCH (22:00)
[2017-09-06] MEDS ORDERED: Digoxin IV* 0.5 MG/2 ML AMP (0.25 MG/ML) IV SLOW PU ONE (23:36)
[2017-09-06] MEDS: Metoprolol Tartrate TAB* 25 MG PO SCH (23:37)
[2017-09-06] MEDS: Morphine TAB Extended Release (*) 30 MG TAB.ER PO SCH (23:38)
[2017-09-06] MEDS: Pregabalin CAP(*) 25 MG PO SCH (23:57)
[2017-09-06] MEDS: Omeprazole CAP* 20 MG PO SCH (23:57)
[2017-09-06] MEDS: Docusate CAP* 100 MG PO SCH (23:58)
[2017-09-07] MEDS: Spironolactone TAB* 25 MG PO SCH ×3 (00:03→20:36)
--- NOTE | 2017-09-07 00:03 | CONS ---
CONSULTATION REPORT: DATE OF CONSULT: 09/06/17 EMERGENCY ROOM PROVIDER: Dr. Shayan Garrett. ATTENDING PHYSICIAN: Dr. Delvis Hinojosa. CHIEF COMPLAINT: Right hip pain. HISTORY OF PRESENT ILLNESS: The patient is an 86-year-old female, who lives at [place], who was brought in by ambulance complaining of right hip pain status post fall. She was found this morning on the ground. The patient is unable to tell me whether the fall was this morning or last night. Reportedly, she was going to the bathroom without her walker and fell onto her right hip. She is unable to give me a numeric value for pain, though is expressing it to be severe. The patient is unable to move her right leg due to pain. Her primary complaint right now is thirst. Today, she has not eaten. She had a small amount of juice at an undetermined time today. The patient denies any history of other fractures. She denies any history of heart attack, stroke, or difficulty with anesthesia. PAST MEDICAL HISTORY: Includes angina, congestive heart failure, hypercholesterolemia, tachycardia in past years. She denies any history of heart attack. Respiratory: Has a history of pneumonia. Denies any asthma or COPD. History of GERD. Denies any history of stroke. Does have a history of breast cancer and multiple myeloma. Does have a history of hepatitis, but no current problems. PAST SURGICAL HISTORY: Includes left breast lumpectomy, hysterectomy, tonsillectomy. SOCIAL HISTORY: Nonsmoker. REVIEW OF SYSTEMS: Denies head pain. Cardiac: Denies chest pain. Denies history of heart attack. Pulmonary: Denies difficulty breathing. GI: Denies any abdominal pain, nausea, vomiting, diarrhea. Musculoskeletal: Confirms right hip pain. Neuro: Denies history of stroke. Hematology: Denies any history of blood clot. PHYSICAL EXAM: Vitals: Temperature 98.1, pulse 109, respiratory rate 18, oxygen saturation 95%, blood pressure 104/65. General: The patient is groaning in pain. Head: Normocephalic, atraumatic. Eyes: EOMI. Mouth: Dry mucosa. Respiratory: Clear to auscultation bilaterally. Cardio: Regular rate and rhythm. Abdomen: Soft, nontender. No notable masses. Musculoskeletal: No cervical spine tenderness. Moves upper extremities well without tenderness. Left lower extremity is without tenderness and she moves her ankle, hip and knee well. She is unwilling to move her right lower extremity at the hip, knee or ankle due to pain. The skin envelope is intact. She does not have any obvious bruising. Her right leg is short and externally rotated. Sensation is intact to light touch throughout the right lower extremity. DP and PT pulses are 2+. Her bilateral feet are hyperpigmented with purple discoloration consistent bilaterally. Capillary refill is within 2 seconds. Neurologic: The patient is very slow to respond and does not respond to some of my questions with routine long pauses and sometimes no answer at all, questions she does respond to have appropriate answers. DIAGNOSTIC STUDIES/LAB DATA: Lab studies: White blood cell count 11.9, hemoglobin 16.0, hematocrit 48. INR 1.17. Sodium 133, chloride 93. Troponin 0.07. CRP 79. BNP is 705. Reports: Chest x-ray, interpretation by radiologist: Findings suggestive of mild CHF. EKG demonstrates ectopic atrial tachycardia, unifocal abnormal P axis , ventricular rate of more than 99, bigeminy, rightward QRS axis. Hip and pelvis x- ray, Radiology interpretation: Fracture of the neck of the right femur with overriding of the fracture fragments and pelvis CT interpretation by Radiology shows mildly comminuted fracture of the neck of the femur with overriding of the fracture fragments. ASSESSMENT: Right femoral neck fracture. PLAN: The patient will be admitted by hospitalist team. She will be medically optimized, at which time, we will bring her to OR for a hemiarthroplasty. She will likely go to the OR in the coming days, for now she may resume her normal diet and be on anticoagulation until the night before surgery. GIANLUCA ZAMORA [id number]/[facility] #: [id number] ROGELIO
--- NOTE | 2017-09-07 01:09 | HP ---
CC: Isidra Beckwith MD * ADMISSION HISTORY AND PHYSICAL: DATE OF ADMISSION: 09/06/17 PATIENT OF: Graciela Zeus * (DICTATED BY GIANLUCA PENA) PRIMARY CARE PHYSICIAN: Isidra Beckwith MD CHIEF COMPLAINT: Right hip pain. HISTORY OF PRESENT ILLNESS: Ms. Robledo is a pleasant 86-year-old female, who carries a quite complicated past medical history significant for breast cancer, recurrent urinary tract infection, recent diagnosis of amyloidosis of the spinal cord, osteopenia, peripheral neuropathy, diastolic heart failure and hyperlipidemia who was seen by Dr. Beckwith last night at her residence in [facility] for a regular checkup. The patient has been a resident of [facility] for 2 years now. She was qualified for a hospice care prior to her admission given her chronic disease and heart failure; however, she eventually got better and was sent to the alf. She presented to the emergency room today after she was brought from her residence at [facility] where she was found to be on the bathroom floor. According to the nursing staff note, the resident was placed on her side with a pillow after she was found on the bathroom floor. She has physical assessment done and no injury initially was noted and was able to move her extremities. Eventually, when the patient stood up with assistance, she started to bear weight on her right foot when immediately she felt discomfort to the right hip. She was taken back to her bed on a wheelchair and Dr. Beckwith was notified, who recommended sending the patient to the ED for further evaluation. Unfortunately, the patient had workup including pelvic x-ray that revealed a right femoral neck fracture. The patient herself is a relatively poor historian; however, she answers questions regarding pain and other needs. She is not sure if she had any head injury or loss of consciousness, however again according to the staff at [facility] report there was no head trauma or loss of consciousness. I have spoken earlier with Dr. Beckwith regarding the patient who has a complicated past medical history and has been DNR for a while. I have expressed with the patient the major question regarding operative intervention to correct her hip fracture versus comfort care measures if she wishes to do so. At this point, during admission time, the patient wishes to be treated and for which Orthopedic consult was obtained in anticipation for possible surgery later on during this admission. At the time of her ED visit, she complains of intermittent right hip pain and spasm. She prior to her presentation has been declining both physically and mentally. Prior to that, she has been doing well after she was "graduated" from hospice care. Looking back to her record showing that she had an echocardiogram done in May of 2015 that showed ejection fraction of 55% to 60% . Other than her hip pain, she denies any chest pain, palpitation, shortness of breath or tachypnea. She was noted to have hypotension and tachycardia during her ED stay, likely related to dehydration. Given her ongoing symptoms and the findings of her hip fracture, we were asked to see the patient to consider admission. PAST MEDICAL HISTORY: Multiple problems, most recently diagnosed with amyloidosis of the spinal cord. She also has other autoimmune diseases that have been worked up. Also history of breast cancer, diagnosed in 2011, status post wide excision with sentinel lymph node biopsy and she has been on letrozole ; also history of urinary tract infection; melanoma in situ; hearing loss; low back pain; hyperlipidemia; osteopenia; cystic right ovary; diastolic heart failure; systolic murmur; osteoarthritis; peripheral neuropathy and history of pneumonia with pleural effusion years ago. PAST SURGICAL HISTORY: Significant for wide excision with sentinel lymph node biopsy due to history of breast cancer in 2011. She also has hysterectomy in 1994, melanoma in situ excision, excision of angiolipoma of the forearm in 2001 , laparoscopic bilateral salpingo-oophorectomy back in 2006. CURRENT MEDICATIONS: Her medications at [facility] according to the attached file include: 1. Tylenol 650 mg p.o. q.6 hours as needed for pain or fever. 2. Mylanta 15 mL p.o. q.4 hours as needed for indigestion. 3. Artificial Tears 2 drops both eyes as needed for dry eyes. 4. Conjugated estrogen vaginal cream as directed. 5. Colace 200 mg p.o. daily. 6. Cymbalta 20 mg p.o. daily. 7. Fentanyl patch 12 mcg transdermal q.72 hours. 8. PreviDent 1.1% p.o. b.i.d. 9. Lasix 120 mg p.o. daily. 10. Imodium 2 mg p.o. q.4 hours as needed for diarrhea. 11. Metoprolol 12.5 mg p.o. b.i.d. 12. Morphine sulfate 60 mg p.o. b.i.d. 13. Prilosec 40 mg p.o. b.i.d. 14. Zofran 8 mg p.o. t.i.d. p.r.n. for nausea. 15. Roxicodone 5 mg p.o. q.3 hours as needed for pain. 16. Lyrica 25 mg p.o. b.i.d. 17. Saliva substitute 2 sprays q.a.m. 18. Senna tablet 2 tablets p.o. b.i.d. p.r.n. for constipation. 19. Spironolactone 25 mg p.o. b.i.d. ALLERGIES: She has no known drug allergies. FAMILY HISTORY: Positive for cancer. Unable to give any information at this time. SOCIAL HISTORY: The patient is . She lives alone at [facility]. She is retired. DNR forms and MOLST form are updated from [facility]. She has a healthcare proxy to her son, Sebastien Robledo, who lives in [place]. REVIEW OF SYSTEMS: See HPI. Otherwise, 14 points review of systems were reviewed and were otherwise negative. PHYSICAL EXAMINATION GENERAL: She is a frail, elderly female, lying on her bed in position, in sight discomfort, but in no acute distress at the time of admission. VITAL SIGNS: Revealed temperature of 98.1, blood pressure of 104/65, pulse of 109, respirations of 18 and O2 sat of 95% on 2 L oxygen. HEENT: Head is normocephalic, atraumatic. Sclerae anicteric. PERRLA. EOMs intact. Oropharynx is dry. NECK: Supple. Trachea midline. No cervical adenopathy noted. LUNGS: Clear to auscultation bilaterally. HEART: Rapid sinus rhythm noted, but no rubs or murmurs. BACK: With normal curvature and no CVA tenderness. ABDOMEN: Soft, nontender, nondistended. No hernias or masses noted. EXTREMITIES: Without cyanosis, clubbing or edema. There is moderate tenderness along the greater trochanteric area of the right hip. Right lower extremity appeared to be slightly shorter and externally rotated just by inspection. No other lesions, ecchymosis noted to upper extremities. NEUROLOGIC: Sensation intact. Bilateral handgrip is equal and tongue is midline. RECTAL: Exam deferred at this time. LABORATORY WORKUP: CBC today with white count of 11,600, hemoglobin 16, hematocrit of 48, and platelets of 367. Chemistry panel with sodium of 133, potassium 4.6, chloride 93, CO2 of 28, BUN 68, and creatinine of 1.4. Her troponin is 0.07. Total creatine kinase is 705. ACCESSORY DIAGNOSTIC DATA: As mentioned above, pelvic CT scan that was done after her hip and pelvis x-ray showing mildly comminuted fracture of femoral neck on the right side. IMPRESSION: An 86-year-old female with a very complicated past medical history including hypertension, diastolic heart failure, history of breast cancer and recently diagnosed with amyloidosis of the spinal cord as well as cystic right ovary, systolic murmurs, hyperlipidemia and osteopenia, who sustained a fall at her alf residence and sustained a right femoral neck fracture. ASSESSMENT AND PLAN: 1. Right hip fracture. The patient will be admitted to medical floor and we will try to medically optimize her in anticipation for surgical intervention. At this point, we will focus on her pain control. She appears to be dehydrated as well given her tachycardia; however, we will provide gentle hydration given her history of diastolic heart failure, for which she has been on chronically on Lasix. I will also check her labs in the morning given her renal insufficiency that again appears to be a lot more than her baseline probably secondary to dehydration. Case was discussed with Dr. Beckwith who will resume her care in the morning. 2. Diastolic congestive heart failure. Again, the patient has last echocardiogram done in May of 2015 with ejection fraction of 55% to 60%. I will review with Dr. Beckwith if there is a need to repeat her echocardiogram assuming medical clearance prior to her anticipated hip nailing if indicated. She appears to be stable at that point. 3. Amyloidosis. Amyloidosis is a recent diagnosis to the patient, appears to be autoimmune in nature. According to the workup, appears to be stable at this time. 4. Hyperlipidemia. We will continue her statin. 5. Chronic nausea, constipation. We will continue symptomatic treatment and supportive care. 6. History of multiple myeloma. 7. Supraventricular tachycardia. Appears to be a chronic issue. We will provide gentle hydration. 8. Gastroesophageal reflux disease. We will continue her PPI coverage. 9. Disposition. Admit to medical floor for medical optimization. Orthopedic consult is pending at this time. The patient will be evaluated by Dr. Beckwith tomorrow and again at the time of admission, she is wishing to proceed with surgery if medically stable. TIME SPENT: Approximately 60-minute was spent admitting this patient including more than 50% of this time obtaining history and performing physical exam. GIANLUCA PENA [id number]/[facility] #: [id number] ROGELIO
[2017-09-07] MEDS: oxyCODONE/Acetamin 5/325 MG* TAB PO PRN (05:05)
[2017-09-07] MEDS ORDERED: Famotidine IV* 10 MG/ML 2 ML (20 mg) IV ONE (06:00)
[2017-09-07 06:53] LABS: ABS Basophils 0 10^3/ul (0-0.2); ABS Eosinophils 0 10^3/ul (0-0.6); ABS Lymphocytes 0.7 10^3/ul (1.0-4.8); ABS Monocytes 0.8 10^3/ul (0-0.8); ABS Neutrophils 10.6 10^3/ul (1.5-7.7); ABS Nucleated RBC 0.1 10^3/ul; Eosinophil % 0 % (0-6); Hematocrit 48 % (35-47); Lymphocyte % 5.7 % (25-47); Mean Corpuscular HGB Conc 33 g/dl (31-36); Mean Corpuscular Hemoglobin 31 pg (27-31); Mean Corpuscular Volume 92 fL (80-97); Mean Platelet Volume 9.2 um3 (7.4-10.4); Nucleated Red Blood Cells % 0.5; Platelet Count 363 10^3/ul (150-450); Red Cell Distribution Width 17 % (10.5-15); White Blood Count 12.1 10^3/ul (3.5-10.8)
[2017-09-07 07:12] LABS: EGFR Non-African American 43.4 (>60)
[2017-09-07] MEDS: NS 0.9% 1000 ML* 1,000 ML IV SCH (09:38)
[2017-09-07] MEDS: Omeprazole CAP* 20 MG PO SCH ×2 (10:17→20:35)
[2017-09-07] MEDS: Morphine TAB Extended Release (*) 30 MG TAB.ER PO SCH ×2 (10:17→20:35)
[2017-09-07] MEDS: Docusate CAP* 100 MG PO SCH ×2 (10:17→20:47)
[2017-09-07] MEDS: Furosemide TAB* 40 MG PO SCH (10:17)
[2017-09-07] MEDS: Pregabalin CAP(*) 25 MG PO SCH ×2 (10:17→20:37)
[2017-09-07] MEDS: Metoprolol Tartrate TAB* 25 MG PO SCH ×2 (10:18→20:35)
[2017-09-07] MEDS ORDERED: Perflutren Lipid Microsphere* 3 ML VIAL ONE (10:50)
[2017-09-07] MEDS: Saliva Substitute (NF) 1 SPRAY BTL MT SCH (11:07)
--- NOTE | 2017-09-07 12:14 | ECHO ---
Patient: FABIOLA WHALEY [facility] Rec#: [id number] : 1930 Date: 09/07/2017 Age: 86y Height: 165.1 cm / 65.0 in Weight: 53.98 kg / 119.0 lbs Sex: F BSA: 1.59 Room#: 440 Admit Date#: 09/07/2017 Type: Inpatient Referring: Yen Cotton Reading: Sofia Kincaid MD Engine [employer] Supervisor: Fabiola Mendez RDCS CC: Isidra Beckwith MD Transthoracic Echocardiogram Indication: CHF BP: 109/67 HR: 121 Rhythm: NSR with PACs Findings History: Breast cancer s/p lumpectomy,UTI,amyloidosis,diastolic heart failure,HLD,systolic murmur. This study was accomplished with patient adi due to her fractured right hip. Technical Comments: The study was technically limited due to the patient's inability to lay in the left lateral decubitus position. Completed at 1139. Definity was used to enhance images. Left Ventricle: The left ventricular chamber size is decreased. Mild to moderate concentric left ventricular hypertrophy is observed. Global left ventricular wall motion and contractility are within normal limits. There is normal left ventricular systolic function. The estimated ejection fraction is 50-55%. The assessment of diastolic function is non-diagnostic. Left Atrium: The left atrium is severely dilated. Right Ventricle: The right ventricular cavity size is normal. The right ventricular global systolic function is normal. Right Atrium: The right atrium is moderately dilated. Aortic Valve: The aortic valve is trileaflet. There is no evidence of aortic valve thickening. There is mild aortic regurgitation. There is no evidence of aortic stenosis. Mitral Valve: The mitral valve leaflets are mildly thickened. There is mild to moderate mitral regurgitation. There is no evidence of mitral stenosis. Tricuspid Valve: The tricuspid valve leaflets are normal. There is moderate to severe tricuspid regurgitation. There is evidence of mild pulmonary hypertension. There is no tricuspid stenosis. Pulmonic Valve: The pulmonic valve appears normal. There is no evidence of pulmonic regurgitation. There is no pulmonic stenosis. Pericardium: The pericardium appears normal. A left pleural effusion is present. There is a large pleural effusion. Aorta: There is no dilatation of the ascending aorta. The aortic arch is not well visualized. There is no dilation of the aortic root. Pulmonary Artery: The main pulmonary artery appears normal. Venous: The venous system is not well visualized. Contrast: Definity was used to optimize study. A total of 3ml used. Intravenous contrast was used to enhance endocardial border definition. Summary: There are changes noted when compared to the previous study done on 05/19/2015, now pt with baseline a fib/flutter. PHTN is new. Otherwise no overt sig changes. Conclusions The left ventricular chamber size is decreased. Mild to moderate concentric left ventricular hypertrophy is observed. There is normal left ventricular systolic function. The estimated ejection fraction is 50-55%. The assessment of diastolic function is non-diagnostic. The left atrium is severely dilated. The right atrium is moderately dilated. There is mild aortic regurgitation. There is mild to moderate mitral regurgitation. There is moderate to severe tricuspid regurgitation. There is evidence of mild pulmonary hypertension. Measurements Name Value Normal Range RVIDd (AP) 2D 2.45 cm (0.9 - 2.6) RVDdMajor (2D) 4.1 cm (2.2 - 4.4) RAd ISD 4CH 6.3 cm (3.4 - 4.9) RA (A4C)W 5 cm (2.9 - 4.6) IVSd (2D) 1.1 cm (0.6 - 1) LVPWd (2D) 1.2 cm (0.6 - 1) LVIDd (2D) 3.3 cm (3.6 - 5.4) LVIDs (2D) 2 cm - LV FS (2D) 38 % (25 - 45) Aortic Annulus 1.6 cm (1.4 - 2.6) Ao root diameter (2D) 3.1 cm (2.1 - 3.5) Ascending Ao 2.8 cm (2.1 - 3.4) LA dimension (AP) 2D 4.5 cm (2.3 - 3.8) LAd ISD 4CH 5.3 cm (2.9 - 5.3) LA ISD 4CH W 4.2 cm (2.5 - 4.5) Name Value Normal Range LA ESV SP 4CH (A/L) 81 ml - LA ESV SP 2CH (A/L) 34 ml - LA ESV BP (A/L) 62 ml - LA ESV BP (A/L) index 38.71 ml/m2 - LA ESV SP 4CH (MOD) 76 ml - LA ESV SP 2CH (MOD) 32 ml - Name Value Normal Range MV E-wave Vmax 0.9 m/sec - MV deceleration time 98 msec - LV septal e' Vmax 0.04 m/sec - LV lateral e' Vmax 0.05 m/sec - LV E:e' septal ratio 22.5 ratio - LV E:e' lateral ratio 18 ratio - Name Value Normal Range AV Vmax 1.1 m/sec - AV VTI 12.1 cm - AV peak gradient 4.99 mmHg - AV mean gradient 2.23 mmHg - LVOT Vmax 1.1 m/sec - LVOT VTI 11.1 cm - LVOT peak gradient 4.51 mmHg - LVOT mean gradient 2.21 mmHg - AR PHT 360 msec - AR peak gradient 38.49 mmHg - Name Value Normal Range TR Vmax 2.8 m/sec - TR peak gradient 33 mmHg - RAP 8 mmHg - RVSP 41 mmHg - Name Value Normal Range PV Vmax 0.7 m/sec - PV peak gradient 1.87 mmHg -
[2017-09-07] MEDS: DULoxetine DR CAP* 20 MG CAP.DR PO SCH (12:41)
[2017-09-07] MEDS ORDERED: Heparin VIAL(*) 5000 UNITS/ML VIAL (FIVE THOUSAND) SUBCUT SCH (14:00)
--- NOTE | 2017-09-07 16:30 | CONS ---
AMENDED REPORT NOW INCLUDES DATE OF CONSULT - ESIGNED BEFORE ADJUSTMENT CONSULTATION REPORT: DATE OF CONSULT: 09/07/17 REFERRING PHYSICIAN: Dr. Beckwith. REASON FOR CONSULT: IgA myeloma with amyloid, now broken hip. HISTORY OF PRESENT ILLNESS: An 86-year-old female who had been followed in our clinic for some time after presentation with amyloidosis. Her initial presentation was in 2013 with abdominal pain and she ultimately had EGD that showed 2 gastric ulcers, biopsy positive amyloidosis. Full evaluation showed bone marrow involvement with 25% plasma cells and amyloid deposition. Serology showed an elevated IgA of 478 and elevated kappa protein. She was seen by Dr. Amezcua and had an echocardiogram consistent with infiltrative disease. She was treated with Cytoxan, bortezomib and dexamethasone starting in March 2015. She initially tolerated the therapy relatively well. Re-endoscopy in May 2015 showed the ulcers were healed. Bone marrow biopsy in May 2015 showed 5% plasma cells. However, towards May and June 2015, she was having increasing difficulty, increasing shortness of breath, increasing weakness and syncopal episodes. She was treated with diuretics, which helped somewhat. The contrast of a responding disease and progressive decline in functional status led to stopping therapy in May 2015 and she was transitioned to hospice. She stayed on hospice for an extended period of time, but ultimately did better and better and was discharged to the care of Dr. Beckwith. Subsequent course was also complicated by pulmonary embolus, anticoagulation, and then repeat GI bleed with anticoagulation stopped. The patient reports over the recent months she had been doing relatively well at [facility]. Still up and about with activities that she enjoys. Managed conservatively by Dr. Beckwith. She subsequently had a fall and was brought in on 09/06/17. She was coming out of the bathroom. Brought to the emergency room and found to have fracture of the right femur. During the hospitalization , she developed atrial flutter with a decreased blood pressure. She has been managed on Percocet for pain. Question at this time is whether or not it is appropriate to undergo surgical intervention for her new hip fracture. PAST MEDICAL HISTORY: 1. Amyloidosis as noted above. 2. PE, currently off anticoagulation. 3. History of gastric ulcers. 4. Osteoarthritis. 5. Osteoporosis. 6. SVT, no atrial flutter. 7. Urethral caruncle. 8. History of breast cancer, remote, T1a disease, lumpectomy in 2011 and then 5 years of Femara. PAST SURGICAL HISTORY: 1. Cataracts. 2. Indwelling catheter. 3. Oophorectomy. 4. Tonsils. 5. Polyps. 6. Hysterectomy. CURRENT MEDICATIONS: 1. Tylenol 650 mg q.4. 2. Maalox. 3. Albuterol 2.5 q.4 p.r.n. 4. Diltiazem 125 mg per hour drip. 5. Docusate 100 mg b.i.d. 6. Cymbalta 20 mg daily. 7. Fentanyl 12 mcg daily. 8. Lasix 120 mg daily. 9. Imodium 2 mg daily. 10. Milk of mag 30 p.r.n. constipation. 11. Metoprolol 12.5 mg p.o. b.i.d. 12. Morphine 1 g IV q. hour p.r.n. 13. MS Contin 60 mg p.o. b.i.d. ALLERGIES: ADHESIVE TAPE. FAMILY HISTORY: Mom at 56 of cancer, but we do not know what type and father had leukemia at 75. She had 1 brother who lived healthy into old age. SOCIAL HISTORY: She is taken care by Dr. Beckwith at [facility]. She had a son who is very involved in her care as well as grandchildren. 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 REVIEW OF SYSTEMS: Difficult to obtain. The patient in and out on exam. Presumed hip pain. Otherwise negative. PHYSICAL EXAM: Vital Signs: Temperature 97.9, heart rate 130, respiratory rate 20, saturation 95%, BP 103/79. HEENT: Mucosa dry. She has an oxygen mask on. Pupils slightly dilated. Heart: Tachycardic, appears regular, systolic murmur. Severe kyphosis. Decreased breath sounds, but I do not hear crackles. Abdomen: Exam distorted by posture with good bowel sounds. Cannot palpate the liver edge or the spleen. Extremities: Reveal no edema. She is warm and has good pulses. We did not look at the hip. LABORATORY DATA: Hemoglobin 16, white count 12.1, platelets 363,000. She has normal differential. Creatinine is 1.18, increased from baseline of 0.8. Troponin was 0.11, now 0.09. Her UA showed no protein. ASSESSMENT AND PLAN: An 86-year-old female with a history of IgA myeloma with amyloidosis, had induction therapy in early 2015 and responded, but did not tolerate treatment. Transitioned to hospice, but then recovered and has done surprisingly well over the last 2 years. She has had a reasonable quality of life over the past several months with activities she enjoyed at [facility]. Now comes in with acute hip fracture. Question at this time is whether or not it is appropriate to proceed with surgical intervention. 1. We will reevaluate the amyloid. Sent quantitative immunoglobulins, SPEP, serum free light chains. I will not check a 24-hour urine given the UA is negative for protein. 2. Does not appear this is a pathologic fracture. Pending above, we could do low-dose CT to look for skeletal lesions. 2. Evaluation by Dr. Amezcua for change in cardiac status as she did have evidence of cardiac amyloid at presentation. 3. We will continue to follow through decision making process. Even if there is no evidence for recurrent amyloid, palliative care after her hip fracture may still be appropriate. [id number]/[facility] #: [id number] MTDD
[2017-09-07] MEDS ORDERED: Digoxin IV* 0.5 MG/2 ML AMP (0.25 MG/ML) IV ONE (17:00)
[2017-09-07] MEDS: fentaNYL Patch Check Q Shift 1 NOTE SCH (19:18)
--- NOTE | 2017-09-07 19:35 | PN ---
Progress Note - Progress Note Date of Service: 09/07/17 SOAP: Subjective: Patient initially made NPO after midnight, but that was cancelled by medicine based on cardiology concerns and patient's family interest in possible palliative care only without surgery. I spoke by telephone with the patient's son/HCP and [id number] about her hip fracture diagnosis and the recommended surgical treatment, bipolar hip hemiarthroplasty. We spoke about benefits and risks of surgery. Cardiology evaluated patient today. Management by jarocho and Amena of atrial dysrhythmia. Seen by Oncology as well re: pre-existing amyloidosis diagnosis. I visited the patient at 7am and 7pm today in her room. Objective: Able to follow commands. Not able to answer questions, likely because of sleepiness. NAD RLE - no significant swelling - pain c PROM hip - NVID Assessment: HD 2 displaced right femoral neck fracture Plan: - Patient not yet optimized, cleared for surgery. - Surgical procedure of choice would be hip hemiarthroplasty. Benefits of surgery would include decreased pain and decreased rates of medical complications such as DVT, decubitus ulcer, pneumonia, UTI. But there are risks of procedure and family may decide comfort care only. - Medicine/Cards dysrhythmia manage. - Please notify orthopedics when cleared for surgery and if family wants surgery. - I provided patient's son my cell phone number.
[2017-09-07] MEDS: Heparin VIAL(*) 5000 UNITS/ML VIAL (FIVE THOUSAND) SUBCUT SCH (20:35)
--- NOTE | 2017-09-07 23:27 | CONS ---
CC: Dr. Amezcua; Dr. Isidra Beckwith, Hospitalist Service; Dr. Kincaid * CARDIOLOGY CONSULTATION DATE OF CONSULT: 09/07/17 SOAKER HELPER: Dr. Amezcua. HISTORY OF PRESENT ILLNESS: I was asked by Dr. Isidra Beckwith to see this 86-year - old female patient, who was brought in after she apparently had a fall. She was found to have right hip fracture. She was hospitalized for further management. The patient has a very complex medical treatment on comorbidities including history of congestive heart failure with diastolic dysfunction, history of amyloidosis, followed up by Dr. Adam. She does have also history of SVT, hyperlipidemia, breast cancer. She does have a history of normal left ventricular systolic function, history of cardiac catheterization that was done back in 2014 that showed nonobstructive coronary artery disease with nonobstructive plaquing, but she was found to have severe diastolic dysfunction with markedly elevated LVEDP. The patient was found to have rapid atrial flutter, heart rate 120. Cardizem IV initiated, but apparently she could not tolerate it because of low blood pressure. Cardiology consult was further requesting for assistance actually in treatment. The patient is frail and she is really very sleepy, poor historian and only responsive opening her eyes to voices. Medical history was discussed and obtained with discussion with the hospitalist service, who admitted the patient as well as with Dr. Isidra Beckwith, the primary care doctor for the patient. No fever, no chills. No nausea, no vomiting, and no documented chest pain. History of pulmonary embolism in the past, history of GI bleed and concerns for using anticoagulation in the past, history of pleural effusion. PAST MEDICAL HISTORY: Complex as outlined above including history of nonobstructive coronary artery disease, history of tachycardia, hyperlipidemia, arthritis, breast cancer, amyloidosis, history of diastolic congestive failure recurrence, history of low blood pressure. PAST SURGICAL HISTORY: History of oophorectomy, history of hysteroscopy, history of left breast biopsy. MEDICATIONS: The inpatient medications include: 1. Tylenol 650 mg p.o. q.4 hours p.r.n. 2. Albuterol. 3. Colace 100 mg twice a day. 4. Fentanyl. 5. Lasix 120 mg daily. 6. Heparin 5000 units q.12 hours. 7. Milk of magnesia 30 mL p.o. q.4 hours. 8. Lopressor 12.5 mg twice a day. 9. Omeprazole 40 mg twice a day. 10. Aldactone 25 mg twice a day. ALLERGIES: No known drug allergies. FAMILY HISTORY: No family history of premature coronary artery disease. SOCIAL HISTORY: She had no history of smoking, occasionally drinks alcohol. No history of illicit drug use. PHYSICAL EXAM: She is very frail. She is responding to voices by opening her eyes. She is very sleepy. Her vitals: Blood pressure is 80 systolic; pulse 120, she is in atrial flutter. Head and Neck Exam: Normocephalic, atraumatic head. Ears, Nose, and Throat: Essentially benign. Neck: Supple. Chest: Diminished air entry at the bases. Heart: Tachycardic. S1 and S2. No S3 appreciated. Abdomen: Benign. Positive bowel sounds. Extremities: No edema. 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 Skin exam is normal. Psych: Difficult to evaluate given that she is really sleepy. DIAGNOSTIC STUDIES/LAB DATA: White blood cells 12.1, hemoglobin 16, hematocrit 48, platelets 363. Chemistry: Sodium 140, potassium 4.8, chloride 98, total CO2 29, BUN 64, creatinine 1.18. Troponin is 0.08, then 0.11, then 0.09. BNP is 705. Her echocardiogram which was done today, EF 50% to 55%, mild aortic insufficiency, gjyl-ua-cyiozwoe mitral insufficiency, brgklhkm-id-bdxbus tricuspid insufficiency and mild pulmonary hypertension. Her EKG showed her to be in atrial flutter, heart rate 130 beats per minute that was done on 09/06/17. IMPRESSION: The patient is an 86-year-old female patient, who is frail and status post: 1. Right hip fracture. 2. Rapid atrial flutter. 3. Marginal blood pressure and hypotensive. 4. Complex comorbidities with history of recurrent diastolic congestive heart failure. 5. Mild aortic insufficiency, mild mitral insufficiency, and [id number] pulmonary hypertension. 6. At some point, the patient was "DNR" and considered for hospice care. 7. Amyloidosis. 8. History of pulmonary embolism. 9. History of gastrointestinal bleed. 10. Multiple myeloma. PLAN: This patient is high complex clinical situation given her advanced age and above-mentioned comorbidities. She would be considered high risk to proceed with surgery. Treatment cardiac dey for her atrial flutter would be very challenging, it is not immediately cleared the duration of her atrial flutter. It is challenging for rate limiting agents given her marginal low systolic blood pressure. I agree with a dose of digoxin, but again someone to keep a very close eye on her renal function, electrolytes especially her renal function as already BUN and creatinine are elevated. Cardioversion is potential alternative possibility, but definitely she will need a transesophageal echocardiography to make sure she has no clots in the left atrium and the left atrial appendage. Use of short-term or long-term anticoagulation is also challenging given her history of bleeding in the past and also given her comorbidities and how much compliance will be to continue to use anticoagulation retirement. I have discussed all above with Dr. Isidra Beckwith. She has been in discussion with her son earlier today about the patient's clinical situation, who I do understand he is on his way to come and make final decisions. Discussions at the present time for palliative care and discussion for hospice has again been discussed. Awaiting any further decision making pending the son's arrival and decision, evaluation. [id number]/[facility] #: [id number] [facility]
[2017-09-08] MEDS: Acetaminophen TAB* 325 MG PO PRN ×2 (01:48→23:23)
[2017-09-08 06:04] LABS: Hematocrit 46 % (35-47); Mean Corpuscular HGB Conc 33 g/dl (31-36); Mean Corpuscular Hemoglobin 30 pg (27-31); Mean Corpuscular Volume 93 fL (80-97); Mean Platelet Volume 8.9 um3 (7.4-10.4); Platelet Count 345 10^3/ul (150-450); Red Blood Count 4.97 10^6/ul (4.00-5.40); Red Cell Distribution Width 17 % (10.5-15); White Blood Count 8.9 10^3/ul (3.5-10.8)
[2017-09-08 06:14] LABS: EGFR Non-African American 49.2 (>60)
--- NOTE | 2017-09-08 08:18 | PN ---
Progress Note - Progress Note Date of Service: 09/08/17 SOAP: Subjective: Seen by Cards. Son arriving today. Objective: NAD Labored breathing at times. Slow to answer questions although asked about time of son's arrival. RLE: - externally rotated, pain with PROM, NVID Selected Entries 09/08/17 09/08/17 06:09 06:42 Temperature 98.2 F Pulse Rate 127 Respiratory 16 Rate Blood Pressure 109/66 (mmHg) O2 Sat by Pulse 95 Oximetry Laboratory Tests 09/07/17 09/07/17 09/08/17 06:31 16:07 05:36 WBC 8.9 Hct 46 Creatinine Troponin I 0.09 H* Digoxin 1.3 09/08/17 05:36 WBC Hct Creatinine 1.06 H Troponin I 0.30 H* Digoxin Assessment: HD 3 right displaced femoral neck fracture Plan: - Defer to cards and Beckwith about management of atrial flutter, possible cardioversion - Defer to cards/Beckwith about fitness for surgery (hip hemiarthroplasty) and her son's interest in palliative care versus surgery - Orthopedics is available if/when needed. There is some literature on "pain pumps", continuous infusion of local anesthesia into the hip joint in patient's managed non-operatively for hip fractures
[2017-09-08] MEDS: fentaNYL Patch Check Q Shift 1 NOTE SCH ×3 (08:38→18:44)
--- NOTE | 2017-09-08 10:15 | PN ---
Subjective - Subjective Reason for Note: Progress Note History: I am this patient's attending internal medicine physician in Isidra Beckwith MD's absence this weekend. I have had a detailed sign out from Dr. Isidra Beckwith. I have also read about her current presentation from Dr. Anne Schulz's H and P , Dr.Quteybeh Kincaid's cardiology consultation, Dr. Trae Adam's consultation and finally Dr. Delvis Hill's consultation. She has a right hip fracture. She also has acute atrial flutter with rate related and diastolic congestive cardiac failure. She has a history of being on hospice, but currently this she is not on hospice. She is disoriented place ([facility]), Time (can't remember year), but remembers her name. She can't give an account of herself. I am not clear if this is dementia or encephalopathy. She is aware of pain on her right side, but is not able to localize it. I tried calling her son - but he didn't pick and shovel man. I called Estefanía Del Real (listed as friend in chart), didn't pick and shovel man. 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 Amyloidosis (Chronic) E85.9 Frailty (Chronic) R54 Hyperlipidemia (Chronic) E78.5 IgA myeloma (Chronic) C90.00 Personal history of gastric ulcer (Chronic) Z87.19 Current Medications: Current Medications Acetaminophen (Tylenol Tab*) 650 mg PO Q4H PRN PRN Reason: FEVER/PAIN Last Admin: 09/08/17 01:48 Dose: 650 mg Al Hydrox/Mg Hydrox/Simethicone (Maalox Plus*) 30 ml PO Q6H PRN PRN Reason: INDIGESTION Albuterol (Ventolin 2.5 Mg/3 Ml Neb.Azul*) 2.5 mg INH RT.[id number] AWAKE PRN PRN Reason: sob/wheezing Docusate Sodium (Colace Cap*) 100 mg PO BID SHANA Last Admin: 09/07/17 20:47 Dose: 100 mg Duloxetine HCl (Cymbalta Cap*) 20 mg PO DAILY [facility] Last Admin: 09/07/17 12:41 Dose: Not Given Fentanyl (Duragesic Patch 12 Mcg/Hr *) 12 mcg TRANSDERM Q72H [facility] Last Admin: 09/06/17 19:00 Dose: 12 mcg Furosemide (Lasix Tab*) 120 mg PO DAILY [facility] Last Admin: 09/07/17 10:17 Dose: 120 mg Heparin Sodium (Porcine) (Heparin Vial(*)) 5,000 units SUBCUT 0900,2100 [facility] Last Admin: 09/07/17 20:35 Dose: 5,000 units Loperamide HCl (Imodium Cap*) 2 mg PO Q4H PRN PRN Reason: DIARRHEA Magnesium Hydroxide (Milk Of Magnesia Liq*) 30 ml PO Q4H PRN PRN Reason: CONSTIPATION Metoprolol Tartrate (Lopressor Tab*) 12.5 mg PO BID [facility] Last Admin: 09/07/17 20:35 Dose: Not Given Morphine Sulfate (Morphine Vial*) 1 mg IV Q1H PRN PRN Reason: PAIN Last Admin: 09/06/17 19:47 Dose: 1 mg Morphine Sulfate (Ms Contin(*)) 60 mg PO BID [facility] Last Admin: 09/07/17 20:35 Dose: Not Given Omeprazole (Prilosec Cap*) 40 mg PO BID [facility] Last Admin: 09/07/17 20:35 Dose: 40 mg Ondansetron HCl (Zofran Inj*) 4 mg IV Q4H PRN PRN Reason: NAUSEA/VOMITING Oxycodone/Acetaminophen (Percocet 5/325 Tab*) 1 tab PO Q4H PRN PRN Reason: Pain Last Admin: 09/07/17 05:05 Dose: 1 tab Pharmacy Profile Note (Fentanyl Patch Check Q Shift) 1 note N/A 0700,1900 [facility] Last Admin: 09/08/17 08:38 Dose: 1 note Polyvinyl Alcohol (Polyvinyl Alcohol 1.4% Opth*) 2 drop BOTH EYES DAILY PRN PRN Reason: DRY EYE Pregabalin (Lyrica Cap(*)) 25 mg PO BID [facility] Last Admin: 09/07/17 20:37 Dose: 25 mg Saliva Substitute (Biotene Moisturizing Mouth (Nf)) 2 spray [facility]; Protocol Last Admin: 09/07/17 11:07 Dose: Not Given Spironolactone (Aldactone Tab*) 25 mg PO BID SHANA Last Admin: 09/07/17 20:36 Dose: Not Given Home Medications: Home Medications Medication Instructions Recorded Confirmed Type Artificial Tears* 15 ML BTL 2 drop BOTH EYES DAILY PRN 02/05/15 09/06/17 History [Polyvinyl Alcohol 1.4% OPTH*] Furosemide TAB* [Lasix TAB*] 120 mg PO DAILY 02/05/15 09/06/17 History Omeprazole CAP* [PriLOSEC CAP*] 40 mg PO BID 02/05/15 09/06/17 History oxyCODONE TAB* [Roxycodone TAB*] 5 mg PO Q3HR PRN MDD 40 mg 02/05/15 09/06/17 History Pregabalin CAP(*) [Lyrica CAP(*)] 25 mg PO BID 05/25/15 09/06/17 History Loperamide CAP* [Imodium CAP*] 2 mg PO Q4H PRN 06/16/15 09/06/17 History Acetaminophen TAB* [Tylenol TAB*] 650 mg PO Q6H PRN 05/07/17 09/06/17 History Al Hydrox/Mg Hydrox/Vanna BULK* 15 ml PO Q4HR PRN 05/07/17 09/06/17 History [Mylanta - BULK BOT*] Metoprolol Tartrate TAB* 12.5 mg PO BID 05/07/17 09/06/17 History [Lopressor TAB*] Morphine Sulfate [Morphine Sulfate 60 mg PO BID 05/07/17 09/06/17 History ER] Ondansetron ODT TAB* [Zofran 4 MG 8 mg PO TID PRN 05/07/17 09/06/17 History Odt TAB*] Sennosides/Docusate Sodium 2 tab PO BID PRN 05/07/17 09/06/17 History [Senna-S Tablet] Conjugated Estrogens VAG CM* 1 applic VAGINAL MOFR 09/06/17 09/06/17 History [Premarin VAG CREAM*] DULoxetine DR CAP* [Cymbalta CAP*] 20 mg PO DAILY 09/06/17 09/06/17 History Docusate CAP* [Colace Cap*] 200 mg PO DAILY PRN 09/06/17 09/06/17 History Fluoride (Sodium) [Prevident 5000 1.1 % PO BID 09/06/17 09/06/17 History Plus] Saliva Substitute (NF) [Biotene 2 spray PO QAM 09/06/17 09/06/17 History Moisturizing Mouth (NF)] Spironolactone TAB* [Aldactone 25 mg PO BID 09/06/17 09/06/17 History TAB*] fentaNYL PATCH 12 MCG/HR * 12 mcg TRANSDERM Q72H 09/06/17 09/06/17 History [Duragesic Patch 12 Mcg/Hr *] Allergies: Allergies Allergy/AdvReac Type Severity Reaction Status Date / Time No Known Allergies Allergy Verified 06/16/15 05:53 Objective - Vital Signs Vital Signs: Vital Signs 09/07/17 09/07/17 09/07/17 10:09 10:17 11:09 Temperature Pulse Rate Respiratory 16 Rate Blood Pressure 102/69 92/57 (mmHg) O2 Sat by Pulse Oximetry 09/07/17 09/07/17 09/07/17 12:09 12:41 12:42 Temperature Pulse Rate Respiratory 14 14 Rate Blood Pressure 83/55 (mmHg) O2 Sat by Pulse Oximetry 09/07/17 09/07/17 09/07/17 13:09 13:11 14:09 Temperature Pulse Rate Respiratory Rate Blood Pressure 80/47 80/50 93/61 (mmHg) O2 Sat by Pulse Oximetry 09/07/17 09/07/17 09/07/17 14:33 15:09 16:09 Temperature 97.7 F Pulse Rate 121 Respiratory 20 Rate Blood Pressure 104/54 82/57 90/57 (mmHg) O2 Sat by Pulse 87 Oximetry 09/07/17 09/07/17 09/07/17 17:02 17:09 18:09 Temperature Pulse Rate 120 Respiratory Rate Blood Pressure 99/64 113/67 (mmHg) O2 Sat by Pulse Oximetry 09/07/17 09/07/17 09/07/17 19:09 19:12 20:00 Temperature 97.1 F Pulse Rate Respiratory 18 Rate Blood Pressure 87/54 (mmHg) O2 Sat by Pulse Oximetry 09/07/17 09/07/17 09/07/17 20:09 20:29 20:35 Temperature Pulse Rate Respiratory 18 Rate Blood Pressure 78/52 78/49 (mmHg) O2 Sat by Pulse Oximetry 09/07/17 09/07/17 09/07/17 20:37 21:09 22:09 Temperature Pulse Rate Respiratory 18 Rate Blood Pressure 111/70 107/64 (mmHg) O2 Sat by Pulse Oximetry 09/07/17 09/07/17 09/08/17 23:09 23:35 00:09 Temperature 98.7 F Pulse Rate Respiratory 16 Rate Blood Pressure 109/67 101/63 (mmHg) O2 Sat by Pulse Oximetry 09/08/17 09/08/17 09/08/17 01:09 01:47 02:09 Temperature Pulse Rate Respiratory 18 Rate Blood Pressure 122/66 93/59 (mmHg) O2 Sat by Pulse Oximetry 09/08/17 09/08/17 09/08/17 03:09 03:22 04:09 Temperature 97.7 F Pulse Rate 124 Respiratory 20 Rate Blood Pressure 87/56 86/54 (mmHg) O2 Sat by Pulse 94 Oximetry 09/08/17 09/08/17 09/08/17 04:33 05:09 06:09 Temperature Pulse Rate Respiratory Rate Blood Pressure 86/54 89/54 109/66 (mmHg) O2 Sat by Pulse Oximetry 09/08/17 09/08/17 09/08/17 06:42 07:09 08:09 Temperature 98.2 F Pulse Rate 127 Respiratory 16 Rate Blood Pressure 93/57 103/66 (mmHg) O2 Sat by Pulse 95 Oximetry - Intake and Output Intake and Output: Intake & Output 09/05/17 09/06/17 09/07/17 09/08/17 11:59 11:59 11:59 11:59 Intake Total 1911 220 Output Total 750 2250 Balance 1161 -2030 Weight 119 lb 115 lb Intake: IV Fluids 1901 NS (0.9%) 881 Oral 10 220 Output: [place] 750 2250 Other: # Bowel Movements 0 0 ADLs: Meal Record Start: 09/06/17 17: 52 Freq: DAILY@0900,1400,1800 Status: Active Protocol: Created 09/06/17 17:52 System (Rec: 09/06/17 17:52 System [id number]) Document 09/07/17 09:00 [id number] (Rec: 09/07/17 10:15 [id number] [facility]-3) Document 09/07/17 14:00 [id number] (Rec: 09/07/17 14:54 [id number] TELE-C03) Document 09/07/17 18:00 [id number] (Rec: 09/07/17 18:11 [id number] TELE-C03) Intake and Output Start: 09/06/17 11: 50 Freq: Status: Active Protocol: Created 09/06/17 11:50 System (Rec: 09/06/17 11:50 System [id number]) Intake and Output Start: 09/06/17 17: 52 Freq: DAILY@0600,1400,2200 Status: Active Protocol: Created 09/06/17 17:52 System (Rec: 09/06/17 17:52 System [id number]) Document 09/07/17 06:00 [id number] (Rec: 09/07/17 06:03 [id number] TELE-C05) Document 09/07/17 22:00 [id number] (Rec: 09/07/17 22:50 [id number] TELE-C03) Document 09/08/17 06:00 [id number] (Rec: 09/08/17 06:31 [id number] TELE-C01) - Physical Exam General Physical Exam Comment: Right leg externally rotated. She is not in acute distress. She is able to drink water independently. She is disoriented time/place, but not person. She has fluent speech. She is unable to give an account of herself. General: No Cyanosis, No Anemia, No Jaundice, No Clubbing Skin: Normal: Rash Lungs and Chest: Yes: Chest Expansion Full, Chest Expansion Symetrica, Percussion Note Resonant, Vessicular Breath Sounds. No: Crackles, Wheezes, Respiratory Distress, Use of Accessory Muscles Heart Rate and Rhythm: Tachycardia Additional Cardiovascular: Yes: Normal Heart Sounds. No: [place] Beat not Displaced - displaced, Heart Murmur, Carotid Bruits, Pedal Edema Abdominal Exam: Yes: Soft. No: Distention, Abdominal Mass, Hepatomegaly, Abdominal Tenderness, Guarding, Bowel Sounds Present - Extremities Cranial Nerves II-XII Intact: Yes Limbs: Normal Power - moving all limbs to command (clearly not R hip) - Neuro Orientation: Person Speech: Normal Results - Results Lab Results: Laboratory Results - last 24 hr 09/07/17 09/07/17 09/08/17 06:31 16:07 05:36 WBC 8.9 RBC 4.97 Hgb 15.0 Hct 46 MCV 93 MCH 30 MCHC 33 RDW 17 H Plt Count 345 MPV 8.9 Sodium 140 Potassium 4.8 Chloride 98 L Carbon Dioxide 29 Anion Gap 13 H BUN 64 H Creatinine 1.18 H Est GFR ( Amer) 52.5 Est GFR (Non-Af Amer) 43.4 BUN/Creatinine Ratio 54.2 H Glucose 141 H Calcium 8.8 Total Bilirubin AST ALT Alkaline Phosphatase Troponin I 0.09 H* B-Natriuretic Peptide Total Protein Albumin Globulin Albumin/Globulin Ratio Digoxin Cancelled 1.3 09/08/17 09/08/17 05:36 05:36 WBC RBC Hgb Hct MCV MCH MCHC RDW Plt Count MPV Sodium 141 Potassium 3.9 Chloride 101 Carbon Dioxide 32 Anion Gap 8 BUN 54 H Creatinine 1.06 H Est GFR ( Amer) 59.5 Est GFR (Non-Af Amer) 49.2 BUN/Creatinine Ratio 50.9 H Glucose 108 H Calcium 8.5 L Total Bilirubin 1.70 H AST 36 ALT 35 Alkaline Phosphatase 213 H Troponin I 0.30 H* B-Natriuretic Peptide 2010 H Total Protein 5.2 L Albumin 3.1 L Globulin 2.1 Albumin/Globulin Ratio 1.5 Digoxin Radiology Results: Patient Name: AILIN WHALEY Medical Record#: [id number] Ordering Physician: Shayan Garrett MD Acct.#: [id number] : 1930 Age: 86 Sex: F Location: EMERGENCY DEPARTMENT Exam Date: 09/06/17 1153 ADM Status: REG ER Order Information: HIP RIGHT 2 VIEWS AND PELVIS Accession Number: [id number] CPT: 83874 Indication: Right hip injury. 2 views of the right hip and AP view the pelvis demonstrates fracture through the neck of the right femur with overriding of the fracture fragments. Pelvic ring is intact. IMPRESSION: Fracture through the neck of the right femur with overriding of the fracture fragments. <Electronically signed by Rosi Condon MD in OV> 09/06/17 1305 Dictated By: Rosi Condon MD Dictated Date/Time: 09/06/17 1305 Transcribed Date/Time: 09/06/17 1303 Copy to: CC:Isidra Beckwith MD; Shayan Garrett MD [facility] [address] [address] ph ([phone]) ph ([phone]) ph ([phone]) Patient Name: AILIN WHALEY Medical Record#: [id number] Ordering Physician: Shayan Garrett MD Acct.#: [id number] : 1930 Age: 86 Sex: F Location: EMERGENCY DEPARTMENT Exam Date: 09/06/171399 ADM Status: REG ER Order Information: CT PELVIS W/O Accession Number: [id number] CPT: 15259 Indication: Right hip fracture. CT of the pelvis was obtained in the axial plane. Sagittal and coronal reconstructed images were obtained. There is a mildly comminuted fracture of the neck of the right femur. There appears to be diffuse osteopenia noted. Overriding of the fracture fragments is noted. The pelvic ring is grossly intact. The lower lumbar spine and pelvis are otherwise unremarkable. The gallbladder is low-lying and within the pelvis with likely milk of calcium in the dependent portion of the gallbladder which is within the iliac fossa. IMPRESSION: Mildly comminuted fracture neck of the femur with overriding of the fracture fragments. <Electronically signed by Rosi Condon MD in OV> 09/06/17 1447 Dictated By: Rosi Condon MD Dictated Date/Time: 09/06/17 1447 Transcribed Date/Time: 09/06/17 1445 Copy to: CC:Isidra Beckwith MD; Shayan Garrett MD [facility] [address] [place] [address] [place] [address] [place] [address] ph ([phone]) ph ([phone]) ph ([phone]) Patient Name: AILIN WHALEY Medical Record#: [id number] Ordering Physician: Yen HOUGH Acct.#: [id number] : 1930 Age: 86 Sex: F Location: [address] [place] [address] MEDICAL Exam Date: 09/06/171654 ADM Status: ADM IN Order Information: CHEST AP PORTABLE Accession Number: [id number] CPT: 56274 INDICATION: Fall. COMPARISON: Comparison is made with a prior chest x-ray study from 5 hours earlier. TECHNIQUE: A portable view of the chest was obtained. FINDINGS: The heart is moderately enlarged and unchanged from the prior exam. There is a small calcified nodule which projects over the right upper lobe consistent with old granulomatous disease. There is mild prominence of the interstitial markings and small bilateral pleural effusions which appear unchanged suggestive of congestive heart failure. No pneumothorax is seen. IMPRESSION: FINDINGS SUGGESTIVE OF CONGESTIVE HEART FAILURE, UNCHANGED. <Electronically signed by Dirk Almaraz MD in OV> 09/06/171757 Dictated By: Dirk Almaraz MD Dictated Date/Time: 09/06/171757 Transcribed Date/Time: 09/06/171754 Copy to: CC:Isidra Beckwith MD; Yen HOUGH; Delvis Hinojosa MD Imaging - [facility] Imaging - [facility] Imaging - [facility] [id number] [place] [address] [address] ph ([phone]) ph ([phone]) ph ([phone]) 1 of 1 EKG Report: Rate 129 HI 171 QTc 350 QRS axis 222 Atrial flutter Other Results/Reports: Transthoracic echocardiogram - conclusions. The left ventricular chamber size is decreased. Mild to moderate concentric left ventricular hypertrophy is observed. There is normal left ventricular systolic function. The estimated ejection fraction is 50-55%. The assessment of diastolic function is non-diagnostic. The left atrium is severely dilated. The right atrium is moderately dilated. There is mild aortic regurgitation. There is mild to moderate mitral regurgitation. There is moderate to severe tricuspid regurgitation. There is evidence of mild pulmonary hypertension. 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 Hinojosa's note. He recommends a right total hip arthroplasty. At present she is not medical stable for this procedure - high risk Acute diastolic (congestive) heart failure (Acute)Atrial flutter with rapid ventricular response (Acute) This is both rate related and also due to her diastolic dysfunction. Her rate remains uncontrolled at around 130 bpm. Her digoxin level is therapeutic - yet not working. I will give this a longer trial. However, we should consider anticoagulation. She has a history of a presumed bleed into a hip at [facility] whilst on anticoagulation - however, this was not documented with radiology and there is no clear history of anemia as a result. 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 I discussed this with Dr. Isidra Beckwith. She is likely encephalopathic from her medication and also the context shift to the hospital (). 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 This is diastolic heart failure - she has evidence of severe dilatation of her atria with tricuspid regurgitation and a high BNP IgA myeloma (Chronic) Amyloidosis (Chronic) Dr. Trae Adam is recharacterizing this problem Frailty (Chronic) She is declining -the fall and fractured hip reflects this - as well as osteoporosis Hyperlipidemia (Chronic) secondary diagnosis Personal history of gastric ulcer (Chronic) secondary diagnosis DNR (do not resuscitate) (Chronic 12/10/14) Renewed GERD (gastroesophageal reflux disease) (Chronic 12/10/14) ongoing Hypertension (Chronic 12/10/14) BP on the lower side. The patient is not aware of her situation and this is likely due to encephalopathy and sun-downing due to context shift to the hospital. She is likely terminal. However, we are giving cardiology and oncology one more look at this. Current issues: * Rapid heart rate - we have started her on digoxin - this is not slowing her rate * Amiodarone - we would need to anticoagulate her for this drug and consider a transesophageal echocardiogram to rule out clot as she might spontaneously revert to sinus rhythm causing embolism of atrial clot * Diastolic dysfunction - this is exacerbated by rate, but this is likely end stage. * Right hip fracture - we will delay the decision about surgery - it is unlikely this is going to be a medically safe procedure. * I will speak with her son Sebastien when he arrives to help with decision making. * I will continue palliation in the meantime.
[2017-09-08] MEDS: Heparin VIAL(*) 5000 UNITS/ML VIAL (FIVE THOUSAND) SUBCUT SCH ×2 (10:38→20:39)
[2017-09-08] MEDS: Pregabalin CAP(*) 25 MG PO SCH ×2 (10:40→20:42)
[2017-09-08] MEDS: Omeprazole CAP* 20 MG PO SCH ×2 (10:40→20:43)
[2017-09-08] MEDS: Furosemide TAB* 40 MG PO SCH (10:41)
[2017-09-08] MEDS: Morphine TAB Extended Release (*) 30 MG TAB.ER PO SCH ×2 (10:42→20:48)
[2017-09-08] MEDS: Spironolactone TAB* 25 MG PO SCH ×2 (10:44→20:41)
[2017-09-08] MEDS: Docusate CAP* 100 MG PO SCH ×2 (10:44→20:44)
[2017-09-08] MEDS: Saliva Substitute (NF) 1 SPRAY BTL MT SCH (11:06)
[2017-09-08] MEDS: DULoxetine DR CAP* 20 MG CAP.DR PO SCH (11:07)
[2017-09-08] MEDS: Metoprolol Tartrate TAB* 25 MG PO SCH ×2 (11:59→20:41)
[2017-09-08] MEDS: oxyCODONE/Acetamin 5/325 MG* TAB PO PRN (16:06)
[2017-09-08] MEDS ORDERED: Digoxin TAB* 0.25 MG PO SCH (17:00)
[2017-09-08] MEDS ORDERED: Ondansetron SYRINGE* 4 MG/2 ML SYRINGE (from 40mg/20ml vial) IV PRN (18:15)
--- NOTE | 2017-09-08 21:50 | PN ---
Subjective Date of Service: 09/08/17 - CC: right hip pain Interval History: The patient's CC is pain in her hip. I saw the patient at 4 PM, her son and daughter in law were present approximately 1/2 way through my evaluation. She was not able to provide much history or insight on her fall. I discussed options of surgical vs non surgical approaches to her hip fracture and risk/benefit of each approach. The patient and her family expressed that Dr Isidra Beckwith had communicated to them she felt the patient was high risk. The patient has remained in atrial flutter, v. rates 125 bpm. She did not respond to IV dig 0.25 and 0.5 mg, BP dropped on diltiazem gtt and rate not controlled. The patient denies awareness of racing heart, she denies SOB. Per nursing the patient was made DNR this AM. Per nursing the patient's alertness has improved from yesterday. Medications Active Medications: Acetaminophen (Tylenol Tab*) 650 mg PO Q4H PRN PRN Reason: FEVER/PAIN Last Admin: 09/08/17 01:48 Dose: 650 mg Al Hydrox/Mg Hydrox/Simethicone (Maalox Plus*) 30 ml PO Q6H PRN PRN Reason: INDIGESTION Albuterol (Ventolin 2.5 Mg/3 Ml Neb.Azul*) 2.5 mg INH [id number] AWAKE PRN PRN Reason: sob/wheezing Digoxin (Lanoxin Tab*) 0.25 mg PO 1700 [facility] Last Admin: 09/08/17 16:07 Dose: 0.25 mg Docusate Sodium (Colace Cap*) 100 mg PO BID [facility] Last Admin: 09/08/17 20:44 Dose: 100 mg Duloxetine HCl (Cymbalta Cap*) 20 mg PO DAILY [facility] Last Admin: 09/08/17 11:07 Dose: 20 mg Fentanyl (Duragesic Patch 12 Mcg/Hr *) 12 mcg TRANSDERM Q72H [facility] Last Admin: 09/06/17 19:00 Dose: 12 mcg Furosemide (Lasix Tab*) 120 mg PO DAILY [facility] Last Admin: 09/08/17 10:41 Dose: 120 mg Heparin Sodium (Porcine) (Heparin Vial(*)) 5,000 units SUBCUT 0900,2100 [facility] Last Admin: 09/08/17 20:39 Dose: 5,000 units Loperamide HCl (Imodium Cap*) 2 mg PO Q4H PRN PRN Reason: DIARRHEA Magnesium Hydroxide (Milk Of Magnesia Liq*) 30 ml PO Q4H PRN PRN Reason: CONSTIPATION Metoprolol Tartrate (Lopressor Tab*) 12.5 mg PO BID [facility] Last Admin: 09/08/17 20:41 Dose: 12.5 mg Morphine Sulfate (Morphine Vial*) 1 mg IV Q1H PRN PRN Reason: PAIN Last Admin: 09/06/17 19:47 Dose: 1 mg Morphine Sulfate (Ms Contin(*)) 60 mg PO BID [facility] Last Admin: 09/08/17 20:48 Dose: 60 mg Omeprazole (Prilosec Cap*) 40 mg PO BID [facility] Last Admin: 09/08/17 20:43 Dose: 40 mg Ondansetron HCl (Zofran Syringe*) 4 mg IV Q4H PRN PRN Reason: NAUSEA/VOMITING Oxycodone/Acetaminophen (Percocet 5/325 Tab*) 1 tab PO Q4H PRN PRN Reason: Pain Last Admin: 09/08/17 16:06 Dose: 1 tab Pharmacy Profile Note (Fentanyl Patch Check Q Shift) 1 note N/A 0700,1900 [facility] Last Admin: 09/08/17 18:44 Dose: 1 note Polyvinyl Alcohol (Polyvinyl Alcohol 1.4% Opth*) 2 drop BOTH EYES DAILY PRN PRN Reason: DRY EYE Pregabalin (Lyrica Cap(*)) 25 mg PO BID [facility] Last Admin: 09/08/17 20:42 Dose: 25 mg Saliva Substitute (Biotene Moisturizing Mouth (Nf)) 2 spray [facility]; Protocol Last Admin: 09/08/17 11:06 Dose: Not Given Spironolactone (Aldactone Tab*) 25 mg PO BID [facility] Last Admin: 09/08/17 20:41 Dose: 25 mg Objective Vital Signs: Temp Pulse Resp BP Pulse Ox 96.2 F 125 18 114/58 87 09/08/17 19:35 09/08/17 19:35 09/08/17 20:48 09/08/17 19:35 09/08/17 19:35 Oxygen Devices in Use Now: OxyMask Appearance: thin, frail elederly female, winces with any movement, lying in bed , conversant. Oxymasc on floor. Eyes: PERRLA Ears/Nose/Mouth/Throat: - - mucosa dry Neck: Trachea Midline Respiratory: Symmetrical Chest Expansion and Respiratory Effort Cardiovascular: RRR - tachycardic, systolic murmur heard at the apex Abdominal: NL Sounds; No Tenderness; No Distention Extremities: No Clubbing, Cyanosis - legs a bit hyperemic, warm. RLE angle abnormal Neurological: - - not oriented to place or time, does know her son. Laboratory Results: 09/08/17 05:36 09/08/17 05:36 INR (Anticoag Therapy) 1.17 (0.77-1.02) H 09/06/17 12:24 APTT 32.7 seconds (26.0-36.3) 09/06/17 12:24 Total Bilirubin 1.70 mg/dL (0.2-1.0) H 09/08/17 05:36 AST 36 U/L (13-39) 09/08/17 05:36 ALT 35 U/L (7-52) 09/08/17 05:36 Alkaline Phosphatase 213 U/L (34-104) H 09/08/17 05:36 B-Natriuretic Peptide 2010 pg/mL (-100) H 09/08/17 05:36 Total Protein 5.2 g/dL (6.4-8.9) L 09/08/17 05:36 Albumin 3.1 g/dL (3.2-5.2) L 09/08/17 05:36 Globulin 2.1 g/dL (2-4) 09/08/17 05:36 Albumin/Globulin Ratio 1.5 (1-3) 09/08/17 05:36 TSH 2.94 mcIU/mL (0.34-5.60) 09/06/17 12:25 09/06/17 09/06/17 09/07/17 12:25 19:27 00:10 Troponin I 0.07 H* 0.08 H* 0.11 H* 09/07/17 09/08/17 06:31 05:36 Troponin I 0.09 H* 0.30 H* Diagnostic Imaging: ECHO 09/07/17: EF 55%, moderate LVH, mild AI, mild to moderate MR, moderate to severe TR, PA pr mildly elevated EKG Data: Atrial flutter, typical, ventricular response 125 bpm. Assessment/Plan 86 yo frail female with hip fracture felt to be repairable by ortho, but concerns regarding frailty, amyloidosis, restrictive CM and valvular heart disease, IgA myeloma, Hx GI bleed, CRI, atrial flutter unknown duration, CHF and surgical risk. Atrial flutter: Could try 1 mg dig IVP and see if this improves rate control and decrease risk of progressive diastolic CHF. If aggressive measures pursued/course changed, then SHAHRIAR, CV and amiodarone an option if able to stay on anticoagulation for a month after. Restrictive CM: Agree with diuresis but monitor carefully, adjust meds based on labs, vitals , comfort. Hip Fx: Short term I suspect the patient can be gotten through surgury, but agree management would be tricky with some risk. intermediate post op fluid management could be improved with cardioversion, but cardiac issues will impact rehab potential. If any consideration for surgury still considered I recommend a group/ multispecialty meeting with the family including anaesthesia. If surgury is still on the table, her cardiac status will likely be better sooner post fracture than later post fracture.
[2017-09-09 06:07] LABS: EGFR Non-African American 57.9 (>60)
[2017-09-09] MEDS: fentaNYL Patch Check Q Shift 1 NOTE SCH ×2 (06:50→18:37)
[2017-09-09 07:32] LABS: ABS Basophils 0 10^3/ul (0-0.2); ABS Eosinophils 0.1 10^3/ul (0-0.6); ABS Lymphocytes 0.8 10^3/ul (1.0-4.8); ABS Monocytes 0.6 10^3/ul (0-0.8); ABS Neutrophils 5.5 10^3/ul (1.5-7.7); ABS Nucleated RBC 0.1 10^3/ul; Eosinophil % 1.6 % (0-6); Hematocrit 48 % (35-47); Hemoglobin 16.2 g/dl (12.0-16.0); Lymphocyte % 11.2 % (25-47); Mean Corpuscular HGB Conc 34 g/dl (31-36); Mean Corpuscular Hemoglobin 31 pg (27-31); Mean Corpuscular Volume 92 fL (80-97); Mean Platelet Volume 9.4 um3 (7.4-10.4); Nucleated Red Blood Cells % 1.4; Platelet Count 323 10^3/ul (150-450); Red Blood Count 5.16 10^6/ul (4.00-5.40); Red Cell Distribution Width 17 % (10.5-15)
[2017-09-09] MEDS: DULoxetine DR CAP* 20 MG CAP.DR PO SCH (09:00)
[2017-09-09] MEDS: Metoprolol Tartrate TAB* 25 MG PO SCH ×2 (09:00→21:23)
[2017-09-09] MEDS: Morphine TAB Extended Release (*) 30 MG TAB.ER PO SCH ×2 (09:00→21:22)
[2017-09-09] MEDS: Spironolactone TAB* 25 MG PO SCH ×2 (09:01→21:24)
[2017-09-09] MEDS: Saliva Substitute (NF) 1 SPRAY BTL MT SCH (09:01)
[2017-09-09] MEDS: Furosemide TAB* 40 MG PO SCH (09:01)
[2017-09-09] MEDS: Docusate CAP* 100 MG PO SCH ×2 (09:01→21:22)
[2017-09-09] MEDS: Pregabalin CAP(*) 25 MG PO SCH ×2 (09:01→21:21)
[2017-09-09] MEDS: Heparin VIAL(*) 5000 UNITS/ML VIAL (FIVE THOUSAND) SUBCUT SCH (09:01)
[2017-09-09] MEDS: Omeprazole CAP* 20 MG PO SCH ×2 (09:01→21:22)
--- NOTE | 2017-09-09 09:39 | PN ---
Subjective - Subjective Reason for Note: Progress Note History: She is much more awake and alert today - she knew my name. She has more pain in her right hip. Her pulse rate came down abruptly. She denies any chest pain , dyspnea, palpitations. 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 Frailty (Chronic) R54 Hyperlipidemia (Chronic) E78.5 IgA myeloma (Chronic) C90.00 Personal history of gastric ulcer (Chronic) Z87.19 Current Medications: Current Medications Acetaminophen (Tylenol Tab*) 650 mg PO Q4H PRN PRN Reason: FEVER/PAIN Last Admin: 09/08/17 23:23 Dose: 650 mg Al Hydrox/Mg Hydrox/Simethicone (Maalox Plus*) 30 ml PO Q6H PRN PRN Reason: INDIGESTION Albuterol (Ventolin 2.5 Mg/3 Ml Neb.Azul*) 2.5 mg INH [id number] AWAKE PRN PRN Reason: sob/wheezing Digoxin (Lanoxin Tab*) 0.25 mg PO 1700 [facility] Last Admin: 09/08/17 16:07 Dose: 0.25 mg Docusate Sodium (Colace Cap*) 100 mg PO BID [facility] Last Admin: 09/09/17 09:01 Dose: 100 mg Duloxetine HCl (Cymbalta Cap*) 20 mg PO DAILY [facility] Last Admin: 09/09/17 09:00 Dose: 20 mg Fentanyl (Duragesic Patch 12 Mcg/Hr *) 12 mcg TRANSDERM Q72H [facility] Last Admin: 09/06/17 19:00 Dose: 12 mcg Furosemide (Lasix Tab*) 120 mg PO DAILY [facility] Last Admin: 09/09/17 09:01 Dose: 120 mg Heparin Sodium (Porcine) (Heparin Vial(*)) 5,000 units SUBCUT 0900,2100 [facility] Last Admin: 09/09/17 09:01 Dose: 5,000 units Loperamide HCl (Imodium Cap*) 2 mg PO Q4H PRN PRN Reason: DIARRHEA Magnesium Hydroxide (Milk Of Magnesia Liq*) 30 ml PO Q4H PRN PRN Reason: CONSTIPATION Metoprolol Tartrate (Lopressor Tab*) 12.5 mg PO BID [facility] Last Admin: 09/09/17 09:00 Dose: 12.5 mg Morphine Sulfate (Morphine Vial*) 1 mg IV Q1H PRN PRN Reason: PAIN Last Admin: 09/06/17 19:47 Dose: 1 mg Morphine Sulfate (Ms Contin(*)) 60 mg PO BID [facility] Last Admin: 09/09/17 09:00 Dose: 60 mg Omeprazole (Prilosec Cap*) 40 mg PO BID [facility] Last Admin: 09/09/17 09:01 Dose: 40 mg Ondansetron HCl (Zofran Syringe*) 4 mg IV Q4H PRN PRN Reason: NAUSEA/VOMITING Oxycodone/Acetaminophen (Percocet 5/325 Tab*) 1 tab PO Q4H PRN PRN Reason: Pain Last Admin: 09/08/17 16:06 Dose: 1 tab Pharmacy Profile Note (Fentanyl Patch Check Q Shift) 1 note N/A 0700,1900 [facility] Last Admin: 09/09/17 06:50 Dose: 1 note Polyvinyl Alcohol (Polyvinyl Alcohol 1.4% Opth*) 2 drop BOTH EYES DAILY PRN PRN Reason: DRY EYE Pregabalin (Lyrica Cap(*)) 25 mg PO BID [facility] Last Admin: 09/09/17 09:01 Dose: 25 mg Saliva Substitute (Biotene Moisturizing Mouth (Nf)) 2 spray [facility]; Protocol Last Admin: 09/09/17 09:01 Dose: Not Given Spironolactone (Aldactone Tab*) 25 mg PO BID [facility] Last Admin: 09/09/17 09:01 Dose: 25 mg Home Medications: Home Medications Medication Instructions Recorded Confirmed Type Artificial Tears* 15 ML BTL 2 drop BOTH EYES DAILY PRN 02/05/15 09/06/17 History [Polyvinyl Alcohol 1.4% OPTH*] Furosemide TAB* [Lasix TAB*] 120 mg PO DAILY 02/05/15 09/06/17 History Omeprazole CAP* [PriLOSEC CAP*] 40 mg PO BID 02/05/15 09/06/17 History oxyCODONE TAB* [Roxycodone TAB*] 5 mg PO Q3HR PRN MDD 40 mg 02/05/15 09/06/17 History Pregabalin CAP(*) [Lyrica CAP(*)] 25 mg PO BID 05/25/15 09/06/17 History Loperamide CAP* [Imodium CAP*] 2 mg PO Q4H PRN 06/16/15 09/06/17 History Acetaminophen TAB* [Tylenol TAB*] 650 mg PO Q6H PRN 05/07/17 09/06/17 History Al Hydrox/Mg Hydrox/Vanna BULK* 15 ml PO Q4HR PRN 05/07/17 09/06/17 History [Mylanta - BULK BOT*] Metoprolol Tartrate TAB* 12.5 mg PO BID 05/07/17 09/06/17 History [Lopressor TAB*] Morphine Sulfate [Morphine Sulfate 60 mg PO BID 05/07/17 09/06/17 History ER] Ondansetron ODT TAB* [Zofran 4 MG 8 mg PO TID PRN 05/07/17 09/06/17 History Odt TAB*] Sennosides/Docusate Sodium 2 tab PO BID PRN 05/07/17 09/06/17 History [Senna-S Tablet] Conjugated Estrogens VAG CM* 1 applic VAGINAL MOFR 09/06/17 09/06/17 History [Premarin VAG CREAM*] DULoxetine DR CAP* [Cymbalta CAP*] 20 mg PO DAILY 09/06/17 09/06/17 History Docusate CAP* [Colace Cap*] 200 mg PO DAILY PRN 09/06/17 09/06/17 History Fluoride (Sodium) [Prevident 5000 1.1 % PO BID 09/06/17 09/06/17 History Plus] Saliva Substitute (NF) [Biotene 2 spray PO QAM 09/06/17 09/06/17 History Moisturizing Mouth (NF)] Spironolactone TAB* [Aldactone 25 mg PO BID 09/06/17 09/06/17 History TAB*] fentaNYL PATCH 12 MCG/HR * 12 mcg TRANSDERM Q72H 09/06/17 09/06/17 History [Duragesic Patch 12 Mcg/Hr *] Allergies: Allergies Allergy/AdvReac Type Severity Reaction Status Date / Time No Known Allergies Allergy Verified 06/16/15 05:53 Objective - Vital Signs Vital Signs: Vital Signs 09/08/17 09/08/17 09/08/17 10:09 10:38 10:40 Temperature Pulse Rate Respiratory 20 Rate Blood Pressure 107/62 94/60 (mmHg) O2 Sat by Pulse Oximetry 09/08/17 09/08/17 09/08/17 10:42 11:09 11:11 Temperature 98.4 F Pulse Rate 125 Respiratory 20 Rate Blood Pressure 105/67 (mmHg) O2 Sat by Pulse 91 Oximetry 09/08/17 09/08/17 09/08/17 11:40 14:16 14:17 Temperature Pulse Rate Respiratory 20 20 Rate Blood Pressure 98/70 (mmHg) O2 Sat by Pulse Oximetry 09/08/17 09/08/17 09/08/17 15:40 16:06 16:07 Temperature 98.4 F Pulse Rate 127 124 Respiratory 12 18 Rate Blood Pressure 108/64 (mmHg) O2 Sat by Pulse 92 Oximetry 09/08/17 09/08/17 09/08/17 17:53 19:35 20:00 Temperature 96.2 F Pulse Rate 125 Respiratory 16 18 19 Rate Blood Pressure 114/58 (mmHg) O2 Sat by Pulse 87 Oximetry 09/08/17 09/08/17 09/08/17 20:42 20:48 21:55 Temperature 98.2 F Pulse Rate 126 Respiratory 18 18 18 Rate Blood Pressure 93/54 (mmHg) O2 Sat by Pulse 97 Oximetry 09/08/17 09/09/17 09/09/17 23:37 00:21 07:24 Temperature 98.4 F 97.3 F Pulse Rate 123 84 Respiratory 16 19 18 Rate Blood Pressure 110/64 106/58 (mmHg) O2 Sat by Pulse 97 97 Oximetry 09/09/17 09/09/17 09/09/17 07:44 09:00 09:01 Temperature Pulse Rate Respiratory 18 20 20 Rate Blood Pressure (mmHg) O2 Sat by Pulse Oximetry - Intake and Output Intake and Output: Intake & Output 09/06/17 09/07/17 09/08/17 09/09/17 11:59 11:59 11:59 11:59 Intake Total 1911 220 550 Output Total 750 3010 900 Balance 1160 Weight 119 lb 115 lb Intake: IV Fluids 1901 NS (0.9%) 881 Oral 10 220 550 Output: Urine 200 [place] 750 2250 700 Other: # Bowel Movements 0 0 0 ADLs: Meal Record Start: 09/06/17 17: 52 Freq: DAILY@0900,1400,1800 Status: Active Protocol: Created 09/06/17 17:52 System (Rec: 09/06/17 17:52 System [id number]) Document 09/07/17 09:00 [id number] (Rec: 09/07/17 10:15 [id number] TELE-C03) Document 09/07/17 14:00 [id number] (Rec: 09/07/17 14:54 [id number] TELE-C03) Document 09/07/17 18:00 [id number] (Rec: 09/07/17 18:11 [id number] TELE-C03) Document 09/08/17 09:00 [id number] (Rec: 09/08/17 13:45 [id number] TELE-C01) Document 09/08/17 13:46 [id number] (Rec: 09/08/17 13:47 [id number] TELE-C01) Document 09/08/17 18:00 [id number] (Rec: 09/08/17 20:21 [id number] TELE-C01) Intake and Output Start: 09/06/17 11: 50 Freq: Status: Active Protocol: Created 09/06/17 11:50 System (Rec: 09/06/17 11:50 System [id number]) Intake and Output Start: 09/06/17 17: 52 Freq: DAILY@0600,1400,2200 Status: Active Protocol: Created 09/06/17 17:52 System (Rec: 09/06/17 17:52 System [id number]) Document 09/07/17 06:00 [id number] (Rec: 09/07/17 06:03 [id number] TELE-C05) Document 09/07/17 22:00 [id number] (Rec: 09/07/17 22:50 [id number] TELE-C03) Document 09/08/17 06:00 [id number] (Rec: 09/08/17 06:31 [id number] TELE-C01) Document 09/08/17 13:46 [id number] (Rec: 09/08/17 13:47 [id number] TELE-C01) Document 09/08/17 21:36 [id number] (Rec: 09/08/17 21:38 [id number] TELE-C03) Document 09/09/17 06:00 [id number] (Rec: 09/09/17 06:20 [id number] TELE-C08) - Physical Exam General: No Cyanosis, No Anemia, No Jaundice, No Clubbing Lungs and Chest: Yes: Chest Expansion Full, Chest Expansion Symetrica, Percussion Note Resonant, Vessicular Breath Sounds, Other - anterior chest. No : Crackles, Wheezes Heart Rate and Rhythm: Regular - 96 bpm Additional Cardiovascular: Yes: Normal Heart Sounds. No: Heart Murmur, Pedal Edema Abdominal Exam: Yes: Bowel Sounds Present. No: Distention, Abdominal Mass, Abdominal Tenderness Results - Results Lab Results: Laboratory Results - last 24 hr 09/07/17 09/09/17 09/09/17 06:31 05:28 05:28 WBC 7.0 RBC 5.16 Hgb 16.2 H Hct 48 H MCV 92 MCH 31 MCHC 34 RDW 17 H Plt Count 323 MPV 9.4 Neut % (Auto) 78.4 Lymph % (Auto) 11.2 L [place] % (Auto) 8.5 H Eos % (Auto) 1.6 Baso % (Auto) 0.3 Absolute Neuts (auto) 5.5 Absolute Lymphs (auto) 0.8 L Absolute Monos (auto) 0.6 Absolute Eos (auto) 0.1 Absolute Basos (auto) 0 Absolute Nucleated RBC 0.1 Nucleated RBC % 1.4 Sodium 139 Potassium 3.8 Chloride 97 L Carbon Dioxide 34 H Anion Gap 8 BUN 39 H Creatinine 0.92 Est GFR ( Amer) 70.0 Est GFR (Non-Af Amer) 57.9 BUN/Creatinine Ratio 42.4 H Glucose 121 H Calcium 8.7 Total Protein (PEP) 6.3 Albumin (PEP) 3.2 L Albumin/Globulin (PEP) 1.05 Azkju-1-Vnentieqn 0.5 H Vdqkf-5-Vihqcjbtt 1.1 H Uxxq-0-Dyyinmsr 0.9 Gamma Globulins 0.6 M-Wang Not Reportable M-Wang 2 Not Reportable PEP Impression See comment Digoxin 2.0 IgG 583 L IgA 115 IgM 61 [place] Light Chain 1.31 Lambda Light Chain 3.75 H [place]/Lambda Ratio 0.3493 Assessment - Problem List Assessment: Patient Problems Acute diastolic (congestive) heart failure (Acute) Atrial flutter with rapid ventricular response (Acute) Disorientation (Acute) Fracture of femoral neck, right (Acute) 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 She is also more aware of her pain. She is dehydrated and thirsty. 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 I will check a 12 lead EKG and see if she has resumed sinus rhythm. I will start her on lovenox if that is the case to prevent stroke. I am less worried about hemorrhaging. I will cut back on her diuretic therapy as I think she is a little volume reduced. Disorientation (Acute) This has cleared up today - it was likely due to narcotics. IgA myeloma (Chronic)/Amyloidosis (Chronic) Per Dr. Adam's investigations Frailty (Chronic) Ongoing problem Hyperlipidemia (Chronic) secondary diagnosis Personal history of gastric ulcer (Chronic) DNR (do not resuscitate) (Chronic 12/10/14) GERD (gastroesophageal reflux disease) (Chronic 12/10/14) secondary diagnosis Hypertension (Chronic 12/10/14) Her BP is on the low side. I explained the situation to the patient and I spoke with Sebastien Robledo. I discussed the decision about surgery - pros and cons.
--- NOTE | 2017-09-09 10:18 | PN ---
Progress Note - Progress Note Date of Service: 09/09/17 Note: EK PA 206 QTc 515 QRS axis 27 sinus rhythm Poor R wave progression, 1st degree AV block, long QTc I will start her on enoxaparin 1 mg/kg q12 hour (50 mg) because of risk of embolic CVA. I discussed the risks of hemorrhage with the family. This can be stopped close to surgery
[2017-09-09] MEDS ORDERED: Enoxaparin(*) 60 MG/0.6 ML SYR SUBCUT SCH (11:00)
--- NOTE | 2017-09-09 14:08 | PN ---
Progress Note - Progress Note Date of Service: 09/09/17 SOAP: Subjective: Pt sleeping in bed. She is aware of pain in right hip. Slow to answer and [place]. Vital Signs: Temp Pulse Resp BP Pulse Ox 97.2 F 77 16 98/51 99 09/09/17 11:33 09/09/17 11:33 09/09/17 11:03 09/09/17 11:33 09/09/17 11:33 Objective: RLE: Externally rotated, Pain with PROM. N/V intact distally Laboratory Last Values WBC 7.0 10^3/ul (3.5-10.8) 09/09/17 05:28 RBC 5.16 10^6/ul (4.00-5.40) 09/09/17 05:28 Hgb 16.2 g/dl (12.0-16.0) H 09/09/17 05:28 Hct 48 % (35-47) H 09/09/17 05:28 MCV 92 fL (80-97) 09/09/17 05:28 MCH 31 pg (27-31) 09/09/17 05:28 MCHC 34 g/dl (31-36) 09/09/17 05:28 RDW 17 % (10.5-15) H 09/09/17 05:28 Plt Count 323 10^3/ul (150-450) 09/09/17 05:28 MPV 9.4 um3 (7.4-10.4) 09/09/17 05:28 Neut % (Auto) 78.4 % (38-83) 09/09/17 05:28 Lymph % (Auto) 11.2 % (25-47) L 09/09/17 05:28 [place] % (Auto) 8.5 % (0-7) H 09/09/17 05:28 Eos % (Auto) 1.6 % (0-6) 09/09/17 05:28 Baso % (Auto) 0.3 % (0-2) 09/09/17 05:28 Absolute Neuts (auto) 5.5 10^3/ul (1.5-7.7) 09/09/17 05:28 Absolute Lymphs (auto) 0.8 10^3/ul (1.0-4.8) L 09/09/17 05:28 Absolute Monos (auto) 0.6 10^3/ul (0-0.8) 09/09/17 05:28 Absolute Eos (auto) 0.1 10^3/ul (0-0.6) 09/09/17 05:28 Absolute Basos (auto) 0 10^3/ul (0-0.2) 09/09/17 05:28 Absolute Nucleated RBC 0.1 10^3/ul 09/09/17 05:28 Nucleated RBC % 1.4 09/09/17 05:28 INR (Anticoag Therapy) 1.17 (0.77-1.02) H 09/06/17 12:24 APTT 32.7 seconds (26.0-36.3) 09/06/17 12:24 Sodium 139 mmol/L (135-145) 09/09/17 05:28 Potassium 3.8 mmol/L (3.5-5.0) 09/09/17 05:28 Chloride 97 mmol/L (101-111) L 09/09/17 05:28 Carbon Dioxide 34 mmol/L (22-32) H 09/09/17 05:28 Anion Gap 8 mmol/L (2-11) 09/09/17 05:28 BUN 39 mg/dL (6-24) H 09/09/17 05:28 Creatinine 0.92 mg/dL (0.51-0.95) 09/09/17 05:28 Est GFR ( Amer) 70.0 (>60) 09/09/17 05:28 Est GFR (Non-Af Amer) 57.9 (>60) 09/09/17 05:28 BUN/Creatinine Ratio 42.4 (8-20) H 09/09/17 05:28 Glucose 121 mg/dL (70-100) H 09/09/17 05:28 Lactic Acid 1.9 mmol/L (0.5-2.0) 09/06/17 12:25 Calcium 8.7 mg/dL (8.6-10.3) 09/09/17 05:28 Magnesium 2.5 mg/dL (1.9-2.7) 09/06/17 12:25 Total Bilirubin 1.70 mg/dL (0.2-1.0) H 09/08/17 05:36 AST 36 U/L (13-39) 09/08/17 05:36 ALT 35 U/L (7-52) 09/08/17 05:36 Alkaline Phosphatase 213 U/L (34-104) H 09/08/17 05:36 Troponin I 0.30 ng/mL (<0.04) H* 09/08/17 05:36 C-Reactive Protein 79.77 mg/L (<8.01) H 09/06/17 12:25 B-Natriuretic Peptide 2010 pg/mL (-100) H 09/08/17 05:36 Total Protein 5.2 g/dL (6.4-8.9) L 09/08/17 05:36 Total Protein (PEP) 6.3 g/dL (6.3 - 7.9) 09/07/17 06:31 Albumin 3.1 g/dL (3.2-5.2) L 09/08/17 05:36 Albumin (PEP) 3.2 g/dL (3.4-4.7) L 09/07/17 06:31 Globulin 2.1 g/dL (2-4) 09/08/17 05:36 Albumin/Globulin Ratio 1.5 (1-3) 09/08/17 05:36 Albumin/Globulin (PEP) 1.05 09/07/17 06:31 Cekta-7-Ovxeiqtod 0.5 g/dL (0.1-0.3) H 09/07/17 06:31 Klrwc-7-Gvvcavitk 1.1 g/dL (0.6-1.0) H 09/07/17 06:31 Oxjm-6-Memygrjj 0.9 g/dL (0.7-1.2) 09/07/17 06:31 Gamma Globulins 0.6 g/dL (0.6-1.6) 09/07/17 06:31 M-Wang Not Reportable 09/07/17 06:31 M-Wang 2 Not Reportable 09/07/17 06:31 PEP Impression See comment 09/07/17 06:31 Lipase < 10 U/L (11.0-82.0) L 09/06/17 12:25 TSH 2.94 mcIU/mL (0.34-5.60) 09/06/17 12:25 Urine Color Shi 09/06/17 12:22 Urine Appearance Cloudy 09/06/17 12:22 Urine pH 5.0 (5-9) 09/06/17 12:22 Ur Specific [place] 1.013 (1.010-1.030) 09/06/17 12:22 Urine Protein Negative (Negative) 09/06/17 12:22 Urine Ketones Negative (Negative) 09/06/17 12:22 Urine Blood Negative (Negative) 09/06/17 12:22 Urine Nitrate Negative (Negative) 09/06/17 12:22 Urine Bilirubin Negative (Negative) 09/06/17 12:22 Urine Urobilinogen Negative (Negative) 09/06/17 12:22 Ur Leukocyte Esterase Negative (Negative) 09/06/17 12:22 Urine Glucose Negative (Negative) 09/06/17 12:22 Digoxin 2.0 ng/ml (0.8-2.0) 09/09/17 05:28 IgG 583 mg/dL (767 - 1590) L 09/07/17 06:31 IgA 115 mg/dL (61 - 356) 09/07/17 06:31 IgM 61 mg/dL (37 - 286) 09/07/17 06:31 [place] Light Chain 1.31 mg/dL 09/07/17 06:31 Lambda Light Chain 3.75 mg/dL H 09/07/17 06:31 [place]/Lambda Ratio 0.3493 09/07/17 06:31 Assessment: Right hip displaced femoral neck fracture HD #4 Plan: Pt is high risk for surgery. Still awaiting cardiac and medical clearance. Pain control Surgery(hemiarthroplasty) vs Palliative care.
--- NOTE | 2017-09-09 15:36 | PN ---
Subjective Date of Service: 09/09/17 - CC: hip pain Interval History: The patient's CC remains the pain in her hip. No CP, breathing has improved. Overnight the patient converted from atrial flutter to NSR. Medications Active Medications: Acetaminophen (Tylenol Tab*) 650 mg PO Q4H PRN PRN Reason: FEVER/PAIN Last Admin: 09/08/17 23:23 Dose: 650 mg Al Hydrox/Mg Hydrox/Simethicone (Maalox Plus*) 30 ml PO Q6H PRN PRN Reason: INDIGESTION Albuterol (Ventolin 2.5 Mg/3 Ml Neb.Azul*) 2.5 mg INH [id number] AWAKE PRN PRN Reason: sob/wheezing Digoxin (Lanoxin Tab*) 0.25 mg PO 1700 [facility] Last Admin: 09/08/17 16:07 Dose: 0.25 mg Docusate Sodium (Colace Cap*) 100 mg PO BID [facility] Last Admin: 09/09/17 09:01 Dose: 100 mg Duloxetine HCl (Cymbalta Cap*) 20 mg PO DAILY [facility] Last Admin: 09/09/17 09:00 Dose: 20 mg Enoxaparin Sodium (Lovenox(*)) 50 mg SUBCUT Q12HR [facility] Fentanyl (Duragesic Patch 12 Mcg/Hr *) 12 mcg TRANSDERM Q72H [facility] Last Admin: 09/06/17 19:00 Dose: 12 mcg Furosemide (Lasix Tab*) 120 mg PO DAILY [facility] Last Admin: 09/09/17 09:01 Dose: 120 mg Loperamide HCl (Imodium Cap*) 2 mg PO Q4H PRN PRN Reason: DIARRHEA Magnesium Hydroxide (Milk Of Magnesia Liq*) 30 ml PO Q4H PRN PRN Reason: CONSTIPATION Metoprolol Tartrate (Lopressor Tab*) 12.5 mg PO BID [facility] Last Admin: 09/09/17 09:00 Dose: 12.5 mg Morphine Sulfate (Morphine Vial*) 1 mg IV Q1H PRN PRN Reason: PAIN Last Admin: 09/06/17 19:47 Dose: 1 mg Morphine Sulfate (Ms Contin(*)) 60 mg PO BID [facility] Last Admin: 09/09/17 09:00 Dose: 60 mg Omeprazole (Prilosec Cap*) 40 mg PO BID [facility] Last Admin: 09/09/17 09:01 Dose: 40 mg Ondansetron HCl (Zofran Syringe*) 4 mg IV Q4H PRN PRN Reason: NAUSEA/VOMITING Oxycodone/Acetaminophen (Percocet 5/325 Tab*) 1 tab PO Q4H PRN PRN Reason: Pain Last Admin: 09/08/17 16:06 Dose: 1 tab Pharmacy Profile Note (Fentanyl Patch Check Q Shift) 1 note N/A 0700,1900 [facility] Last Admin: 09/09/17 06:50 Dose: 1 note Polyvinyl Alcohol (Polyvinyl Alcohol 1.4% Opth*) 2 drop BOTH EYES DAILY PRN PRN Reason: DRY EYE Pregabalin (Lyrica Cap(*)) 25 mg PO BID [facility] Last Admin: 09/09/17 09:01 Dose: 25 mg Saliva Substitute (Biotene Moisturizing Mouth (Nf)) 2 spray [facility]; Protocol Last Admin: 09/09/17 09:01 Dose: Not Given Spironolactone (Aldactone Tab*) 25 mg PO BID [facility] Last Admin: 09/09/17 09:01 Dose: 25 mg Objective Vital Signs: Temp Pulse Resp BP Pulse Ox 97.2 F 77 16 98/51 99 09/09/17 11:33 09/09/17 11:33 09/09/17 11:03 09/09/17 11:33 09/09/17 11:33 Oxygen Devices in Use Now: Nasal Cannula Appearance: thin, frail elederly female, winces with any movement, lying in bed , conversant. Slow speech. Eyes: PERRLA Ears/Nose/Mouth/Throat: - - mucosa dry Neck: Trachea Midline Respiratory: Symmetrical Chest Expansion and Respiratory Effort - unable to hear posteriorly due to pain moving. Cardiovascular: RRR - systolic murmur heard at the apex Abdominal: NL Sounds; No Tenderness; No Distention Extremities: No Clubbing, Cyanosis - legs a bit hyperemic, warm. RLE angle abnormal Neurological: - - not oriented to place or time, very slow to answer questions, hard for her to find words, but all answers are appropriate. Laboratory Results: 09/09/17 05:28 09/09/17 05:28 INR (Anticoag Therapy) 1.17 (0.77-1.02) H 09/06/17 12:24 APTT 32.7 seconds (26.0-36.3) 09/06/17 12:24 Total Bilirubin 1.70 mg/dL (0.2-1.0) H 09/08/17 05:36 AST 36 U/L (13-39) 09/08/17 05:36 ALT 35 U/L (7-52) 09/08/17 05:36 Alkaline Phosphatase 213 U/L (34-104) H 09/08/17 05:36 B-Natriuretic Peptide 2010 pg/mL (-100) H 09/08/17 05:36 Total Protein 5.2 g/dL (6.4-8.9) L 09/08/17 05:36 Albumin 3.1 g/dL (3.2-5.2) L 09/08/17 05:36 Globulin 2.1 g/dL (2-4) 09/08/17 05:36 Albumin/Globulin Ratio 1.5 (1-3) 09/08/17 05:36 TSH 2.94 mcIU/mL (0.34-5.60) 09/06/17 12:25 09/06/17 09/06/17 09/07/17 12:25 19:27 00:10 Troponin I 0.07 H* 0.08 H* 0.11 H* 09/07/17 09/08/17 06:31 05:36 Troponin I 0.09 H* 0.30 H* Diagnostic Imaging: ECHO 09/07/17: EF 55%, moderate LVH, mild AI, mild to moderate MR, moderate to severe TR, PA pr mildly elevated EKG Data: 09/09/17 NSR, 82 bpm QRS 0, normal SWAPNIL CT, low volts limb leads. Assessment/Plan 86 yo frail female with hip fracture felt to be repairable by ortho, but concerns regarding frailty, amyloidosis, restrictive CM and valvular heart disease, IgA myeloma, Hx GI bleed, CRI, atrial flutter unknown duration, CHF and surgical risk. Atrial flutter: As converted to NSR and at high risk of more aflutter or fib, I recommend starting amiodarone. I agree/noted anticoagulation started. As Digoxen level is 2 and amiodarone potentiates, will d/c digoxen. Restrictive CM: Agree with diuresis but monitor carefully, adjust meds based on labs, vitals , comfort. Hip Fx: Short term I suspect the patient can be gotten through surgury, but agree management would be tricky with some risk. residential post op fluid management could be improved with cardioversion, but cardiac issues will impact rehab potential. I understand from Dr Pichardo surgical decision will be made with the patient and family tomorrow when the patient's primary care physcian is available to assist with risk stratification.
[2017-09-09] MEDS: fentaNYL PATCH 12 MCG/HR TRANSDERM SCH (16:46)
[2017-09-09] MEDS: Amiodarone TAB* 200 MG PO SCH (16:49)
[2017-09-09] MEDS: oxyCODONE/Acetamin 5/325 MG* TAB PO PRN ×2 (18:04→23:54)
[2017-09-09] MEDS: Enoxaparin(*) 60 MG/0.6 ML SYR SUBCUT SCH (21:24)
[2017-09-10 06:40] LABS: EGFR Non-African American 55.8 (>60)
[2017-09-10] MEDS: fentaNYL Patch Check Q Shift 1 NOTE SCH ×2 (06:42→19:43)
[2017-09-10] MEDS ORDERED: Omeprazole CAP* 20 MG ONE (09:48)
[2017-09-10] MEDS: Pregabalin CAP(*) 25 MG PO SCH ×2 (09:51→21:09)
[2017-09-10] MEDS: Omeprazole CAP* 20 MG PO SCH ×2 (09:51→21:08)
[2017-09-10] MEDS: Furosemide TAB* 40 MG PO SCH (09:52)
[2017-09-10] MEDS: Morphine TAB Extended Release (*) 30 MG TAB.ER PO SCH ×2 (09:53→21:08)
[2017-09-10] MEDS: Docusate CAP* 100 MG PO SCH ×2 (09:54→21:08)
[2017-09-10] MEDS: Spironolactone TAB* 25 MG PO SCH ×2 (09:54→21:09)
[2017-09-10] MEDS: Amiodarone TAB* 200 MG PO SCH (09:55)
[2017-09-10] MEDS: DULoxetine DR CAP* 20 MG CAP.DR PO SCH (09:56)
[2017-09-10] MEDS: Metoprolol Tartrate TAB* 25 MG PO SCH ×2 (09:57→21:08)
[2017-09-10] MEDS: Enoxaparin(*) 60 MG/0.6 ML SYR SUBCUT SCH ×3 (10:02→21:11)
[2017-09-10] MEDS: Saliva Substitute (NF) 1 SPRAY BTL MT SCH (10:03)
[2017-09-10] MEDS: oxyCODONE/Acetamin 5/325 MG* TAB PO PRN ×2 (10:12→18:20)
--- NOTE | 2017-09-10 18:02 | PN ---
Progress Note - Progress Note Date of Service: 09/10/17 SOAP: Subjective: []Patient seen at bedside, she is sleeping though awakens to verbal stimuli. Denies pain. Objective: [] Vital Signs Temp 98.0 F 09/10/17 15:21 Pulse 77 09/10/17 15:21 Resp 16 09/10/17 15:21 BP 107/66 09/10/17 15:21 Pulse Ox 97 09/10/17 15:21 Intake & Output 09/09/17 09/10/17 09/10/17 18:59 06:59 18:59 Intake Total 150 850 90 Output Total 350 375 150 Balance -200 475 -60 Weight 107 lb Intake: Oral 150 850 90 Output: Urine 150 [place] 350 375 Other: # Bowel Movements 0 0 Laboratory Last Values WBC 7.0 10^3/ul (3.5-10.8) 09/09/17 05:28 RBC 5.16 10^6/ul (4.00-5.40) 09/09/17 05:28 Hgb 16.2 g/dl (12.0-16.0) H 09/09/17 05:28 Hct 48 % (35-47) H 09/09/17 05:28 MCV 92 fL (80-97) 09/09/17 05:28 MCH 31 pg (27-31) 09/09/17 05:28 MCHC 34 g/dl (31-36) 09/09/17 05:28 RDW 17 % (10.5-15) H 09/09/17 05:28 Plt Count 323 10^3/ul (150-450) 09/09/17 05:28 MPV 9.4 um3 (7.4-10.4) 09/09/17 05:28 Neut % (Auto) 78.4 % (38-83) 09/09/17 05:28 Lymph % (Auto) 11.2 % (25-47) L 09/09/17 05:28 [place] % (Auto) 8.5 % (0-7) H 09/09/17 05:28 Eos % (Auto) 1.6 % (0-6) 09/09/17 05:28 Baso % (Auto) 0.3 % (0-2) 09/09/17 05:28 Absolute Neuts (auto) 5.5 10^3/ul (1.5-7.7) 09/09/17 05:28 Absolute Lymphs (auto) 0.8 10^3/ul (1.0-4.8) L 09/09/17 05:28 Absolute Monos (auto) 0.6 10^3/ul (0-0.8) 09/09/17 05:28 Absolute Eos (auto) 0.1 10^3/ul (0-0.6) 09/09/17 05:28 Absolute Basos (auto) 0 10^3/ul (0-0.2) 09/09/17 05:28 Absolute Nucleated RBC 0.1 10^3/ul 09/09/17 05:28 Nucleated RBC % 1.4 09/09/17 05:28 INR (Anticoag Therapy) 1.17 (0.77-1.02) H 09/06/17 12:24 APTT 32.7 seconds (26.0-36.3) 09/06/17 12:24 Sodium 137 mmol/L (135-145) 09/10/17 06:07 Potassium 3.9 mmol/L (3.5-5.0) 09/10/17 06:07 Chloride 94 mmol/L (101-111) L 09/10/17 06:07 Carbon Dioxide 33 mmol/L (22-32) H 09/10/17 06:07 Anion Gap 10 mmol/L (2-11) 09/10/17 06:07 BUN 36 mg/dL (6-24) H 09/10/17 06:07 Creatinine 0.95 mg/dL (0.51-0.95) 09/10/17 06:07 Est GFR ( Amer) 67.5 (>60) 09/10/17 06:07 Est GFR (Non-Af Amer) 55.8 (>60) 09/10/17 06:07 BUN/Creatinine Ratio 37.9 (8-20) H 09/10/17 06:07 Glucose 126 mg/dL (70-100) H 09/10/17 06:07 Lactic Acid 1.9 mmol/L (0.5-2.0) 09/06/17 12:25 Calcium 8.7 mg/dL (8.6-10.3) 09/10/17 06:07 Magnesium 2.5 mg/dL (1.9-2.7) 09/06/17 12:25 Total Bilirubin 1.70 mg/dL (0.2-1.0) H 09/08/17 05:36 AST 36 U/L (13-39) 09/08/17 05:36 ALT 35 U/L (7-52) 09/08/17 05:36 Alkaline Phosphatase 213 U/L (34-104) H 09/08/17 05:36 Troponin I 0.30 ng/mL (<0.04) H* 09/08/17 05:36 C-Reactive Protein 79.77 mg/L (<8.01) H 09/06/17 12:25 B-Natriuretic Peptide 2010 pg/mL (-100) H 09/08/17 05:36 Total Protein 5.2 g/dL (6.4-8.9) L 09/08/17 05:36 Total Protein (PEP) 6.3 g/dL (6.3 - 7.9) 09/07/17 06:31 Albumin 3.1 g/dL (3.2-5.2) L 09/08/17 05:36 Albumin (PEP) 3.2 g/dL (3.4-4.7) L 09/07/17 06:31 Globulin 2.1 g/dL (2-4) 09/08/17 05:36 Albumin/Globulin Ratio 1.5 (1-3) 09/08/17 05:36 Albumin/Globulin (PEP) 1.05 09/07/17 06:31 Jeyex-0-Aojqmipjc 0.5 g/dL (0.1-0.3) H 09/07/17 06:31 Itvfm-8-Ebyhkufep 1.1 g/dL (0.6-1.0) H 09/07/17 06:31 Ejor-4-Plcedide 0.9 g/dL (0.7-1.2) 09/07/17 06:31 Gamma Globulins 0.6 g/dL (0.6-1.6) 09/07/17 06:31 M-Wang Not Reportable 09/07/17 06:31 M-Wang 2 Not Reportable 09/07/17 06:31 PEP Impression See comment 09/07/17 06:31 Lipase < 10 U/L (11.0-82.0) L 09/06/17 12:25 TSH 2.94 mcIU/mL (0.34-5.60) 09/06/17 12:25 Urine Color Shi 09/06/17 12:22 Urine Appearance Cloudy 09/06/17 12:22 Urine pH 5.0 (5-9) 09/06/17 12:22 Ur Specific [place] 1.013 (1.010-1.030) 09/06/17 12:22 Urine Protein Negative (Negative) 09/06/17 12:22 Urine Ketones Negative (Negative) 09/06/17 12:22 Urine Blood Negative (Negative) 09/06/17 12:22 Urine Nitrate Negative (Negative) 09/06/17 12:22 Urine Bilirubin Negative (Negative) 09/06/17 12:22 Urine Urobilinogen Negative (Negative) 09/06/17 12:22 Ur Leukocyte Esterase Negative (Negative) 09/06/17 12:22 Urine Glucose Negative (Negative) 09/06/17 12: Digoxin 2.2 ng/ml (0.8-2.0) H 09/10/17 06:07 IgG 583 mg/dL (767 - 1590) L 09/07/17 06:31 IgA 115 mg/dL (61 - 356) 09/07/17 06:31 IgM 61 mg/dL (37 - 286) 09/07/17 06:31 [place] Light Chain 1.31 mg/dL 09/07/17 06:31 Lambda Light Chain 3.75 mg/dL H 09/07/17 06:31 [place]/Lambda Ratio 0.3493 09/07/17 06:31 General: Sleeping when entered room, aroused to verbal stimuli RLE: externally rotated, Dp2+, able to wiggle toes. BL calves supple and nontender without erythema, edema or palpable cords Assessment: []Right hip displaced femoral neck fracture Plan: []Pt is high risk for surgery. Appreciate cardio and medicine consults Surgery(hemiarthroplasty) vs Palliative care. <Betsey Estes - Last Filed: 09/10/17 18:02> - Progress Note SOAP: Subjective: I spoke with the patient's son by telephone today regarding the patient's decision regarding treatment. The patient and her son decided that they prefer surgery. They understand the risks of surgery. They spoke with Dr. Beckwith extensively today regarding treatment options. I communicated with Dr. Beckwith today regarding the patient. The patient is optimized from a medical perspective. Medicine and Cardiology are more comfortable with surgery given the patient's conversion to NSR over the weekend. I contacted the operating room to find a spot for the patient surgery 09/11 or , during daytime hours if possible given the patient's poor fitness and multiple medical comorbidities. If there is space/personnel available, I will proceed with the surgery 09/12/17 in the morning. Just in case availability arises for 09/11/17, I will make the patient NPO after midnight tonight with Lovenox to be held. <Delvis Hinojosa - Last Filed: 09/10/17 19:10>
[2017-09-10] MEDS: Morphine VIAL* 4 MG/ML VIAL (1 ml vial) IV PRN (20:55)
[2017-09-11] MEDS: Morphine VIAL* 4 MG/ML VIAL (1 ml vial) IV PRN ×2 (06:53→09:26)
[2017-09-11] MEDS: fentaNYL Patch Check Q Shift 1 NOTE SCH ×2 (06:57→21:52)
[2017-09-11 10:43] LABS: Hematocrit 51 % (35-47); Hemoglobin 16.6 g/dl (12.0-16.0); Mean Corpuscular HGB Conc 33 g/dl (31-36); Mean Corpuscular Hemoglobin 31 pg (27-31); Mean Corpuscular Volume 94 fL (80-97); Mean Platelet Volume 8.8 um3 (7.4-10.4); Platelet Count 315 10^3/ul (150-450); Red Blood Count 5.42 10^6/ul (4.00-5.40); Red Cell Distribution Width 16 % (10.5-15); White Blood Count 8.2 10^3/ul (3.5-10.8)
[2017-09-11] MEDS: Enoxaparin(*) 60 MG/0.6 ML SYR SUBCUT SCH ×2 (10:57→21:52)
[2017-09-11] MEDS: Saliva Substitute (NF) 1 SPRAY BTL MT SCH (10:58)
[2017-09-11 11:03] LABS: EGFR Non-African American 57.2 (>60)
[2017-09-11] MEDS: Docusate CAP* 100 MG PO SCH ×2 (11:20→21:52)
[2017-09-11] MEDS: Spironolactone TAB* 25 MG PO SCH ×2 (11:21→21:53)
[2017-09-11] MEDS: Furosemide TAB* 40 MG PO SCH (11:21)
[2017-09-11] MEDS: Amiodarone TAB* 200 MG PO SCH (11:40)
[2017-09-11] MEDS: Metoprolol Tartrate TAB* 25 MG PO SCH ×2 (11:40→21:53)
[2017-09-11] MEDS: Omeprazole CAP* 20 MG PO SCH ×2 (11:41→21:53)
[2017-09-11] MEDS: Morphine TAB Extended Release (*) 30 MG TAB.ER PO SCH ×2 (11:41→21:52)
[2017-09-11] MEDS: Pregabalin CAP(*) 25 MG PO SCH ×2 (11:41→21:53)
[2017-09-11] MEDS: DULoxetine DR CAP* 20 MG CAP.DR PO SCH (11:41)
--- NOTE | 2017-09-11 11:48 | PN ---
Progress Note - Progress Note Date of Service: 09/11/17 SOAP: Subjective: []Patient seen at bedside. She has no complaints aside from dry mouth. Objective: [] Vital Signs Temp 97.8 F 09/11/17 10:40 Pulse 78 09/11/17 10:40 Resp 16 09/11/17 11:41 BP 102/54 09/11/17 10:40 Pulse Ox 96 09/11/17 10:40 Intake & Output 09/10/17 09/11/17 09/11/17 18:59 06:59 18:59 Intake Total 90 0 0 Output Total 150 380 Balance -60 -380 0 Intake: Oral 90 0 0 Output: Urine 150 150 [place] 230 Other: # Bowel Movements 0 Laboratory Last Values WBC 8.2 10^3/ul (3.5-10.8) 09/11/17 10:34 RBC 5.42 10^6/ul (4.00-5.40) H 09/11/17 10:34 Hgb 16.6 g/dl (12.0-16.0) H 09/11/17 10:34 Hct 51 % (35-47) H 09/11/17 10:34 MCV 94 fL (80-97) 09/11/17 10:34 MCH 31 pg (27-31) 09/11/17 10:34 MCHC 33 g/dl (31-36) 09/11/17 10:34 RDW 16 % (10.5-15) H 09/11/17 10:34 Plt Count 315 10^3/ul (150-450) 09/11/17 10:34 MPV 8.8 um3 (7.4-10.4) 09/11/17 10:34 Neut % (Auto) 78.4 % (38-83) 09/09/17 05:28 Lymph % (Auto) 11.2 % (25-47) L 09/09/17 05:28 [place] % (Auto) 8.5 % (0-7) H 09/09/17 05:28 Eos % (Auto) 1.6 % (0-6) 09/09/17 05:28 Baso % (Auto) 0.3 % (0-2) 09/09/17 05:28 Absolute Neuts (auto) 5.5 10^3/ul (1.5-7.7) 09/09/17 05:28 Absolute Lymphs (auto) 0.8 10^3/ul (1.0-4.8) L 09/09/17 05:28 Absolute Monos (auto) 0.6 10^3/ul (0-0.8) 09/09/17 05:28 Absolute Eos (auto) 0.1 10^3/ul (0-0.6) 09/09/17 05:28 Absolute Basos (auto) 0 10^3/ul (0-0.2) 09/09/17 05:28 Absolute Nucleated RBC 0.1 10^3/ul 09/09/17 05:28 Nucleated RBC % 1.4 09/09/17 05:28 INR (Anticoag Therapy) 1.17 (0.77-1.02) H 09/06/17 12:24 APTT 32.7 seconds (26.0-36.3) 09/06/17 12:24 Sodium 137 mmol/L (135-145) 09/11/17 10:34 Potassium 4.3 mmol/L (3.5-5.0) 09/11/17 10:34 Chloride 94 mmol/L (101-111) L 09/11/17 10:34 Carbon Dioxide 34 mmol/L (22-32) H 09/11/17 10:34 Anion Gap 9 mmol/L (2-11) 09/11/17 10:34 BUN 33 mg/dL (6-24) H 09/11/17 10:34 Creatinine 0.93 mg/dL (0.51-0.95) 09/11/17 10:34 Est GFR ( Amer) 69.2 (>60) 09/11/17 10:34 Est GFR (Non-Af Amer) 57.2 (>60) 09/11/17 10:34 BUN/Creatinine Ratio 35.5 (8-20) H 09/11/17 10:34 Glucose 119 mg/dL (70-100) H 09/11/17 10:34 Hemoglobin A1c 7.3 % (4.0-5.6) H 09/11/17 10:34 Lactic Acid 1.9 mmol/L (0.5-2.0) 09/06/17 12:25 Calcium 8.8 mg/dL (8.6-10.3) 09/11/17 10:34 Magnesium 2.5 mg/dL (1.9-2.7) 09/06/17 12:25 Total Bilirubin 1.70 mg/dL (0.2-1.0) H 09/08/17 05:36 AST 36 U/L (13-39) 09/08/17 05:36 ALT 35 U/L (7-52) 09/08/17 05:36 Alkaline Phosphatase 213 U/L (34-104) H 09/08/17 05:36 Troponin I 0.14 ng/mL (<0.04) H* 09/11/17 10:34 C-Reactive Protein 79.77 mg/L (<8.01) H 09/06/17 12:25 B-Natriuretic Peptide 822 pg/mL (-100) H 09/11/17 10:34 Total Protein 5.2 g/dL (6.4-8.9) L 09/08/17 05:36 Total Protein (PEP) 6.3 g/dL (6.3 - 7.9) 09/07/17 06:31 Albumin 3.1 g/dL (3.2-5.2) L 09/08/17 05:36 Albumin (PEP) 3.2 g/dL (3.4-4.7) L 09/07/17 06:31 Globulin 2.1 g/dL (2-4) 09/08/17 05:36 Albumin/Globulin Ratio 1.5 (1-3) 09/08/17 05:36 Albumin/Globulin (PEP) 1.05 09/07/17 06:31 Mctdp-3-Aanfieyed 0.5 g/dL (0.1-0.3) H 09/07/17 06:31 Rfvzc-3-Szatmvgzd 1.1 g/dL (0.6-1.0) H 09/07/17 06:31 Fdgw-8-Cntrarrm 0.9 g/dL (0.7-1.2) 09/07/17 06:31 Gamma Globulins 0.6 g/dL (0.6-1.6) 09/07/17 06:31 M-Wang Not Reportable 09/07/17 06:31 M-Wang 2 Not Reportable 09/07/17 06:31 PEP Impression See comment 09/07/17 06:31 Lipase < 10 U/L (11.0-82.0) L 09/06/17 12:25 TSH 2.94 mcIU/mL (0.34-5.60) 09/06/17 12:25 Urine Color Shi 09/06/17 12:22 Urine Appearance Cloudy 09/06/17 12:22 Urine pH 5.0 (5-9) 09/06/17 12:22 Ur Specific [place] 1.013 (1.010-1.030) 09/06/17 12:22 Urine Protein Negative (Negative) 09/06/17 12:22 Urine Ketones Negative (Negative) 09/06/17 12:22 Urine Blood Negative (Negative) 09/06/17 12:22 Urine Nitrate Negative (Negative) 09/06/17 12:22 Urine Bilirubin Negative (Negative) 09/06/17 12:22 Urine Urobilinogen Negative (Negative) 09/06/17 12:22 Ur Leukocyte Esterase Negative (Negative) 09/06/17 12:22 Urine Glucose Negative (Negative) 09/06/17 12:22 Digoxin 2.0 ng/ml (0.8-2.0) 09/11/17 10:34 IgG 583 mg/dL (767 - 1590) L 09/07/17 06:31 IgA 115 mg/dL (61 - 356) 09/07/17 06:31 IgM 61 mg/dL (37 - 286) 09/07/17 06:31 [place] Light Chain 1.31 mg/dL 09/07/17 06:31 Lambda [place] 3.75 mg/dL H 09/07/17 06:31 [place]/Lambda Ratio 0.3493 09/07/17 06:31 General: Patient seen at bedside, sleeping but arousable, NAD RLE: externally rotated, DP2+, able to wiggle toes. BL calves supple and nontender without erythema, edema or palpable cords Assessment: []Right hip displaced femoral neck fracture Plan: []Pt is NPO, anticoagulation is held. Dr Isidra Beckwith has given orders to hold appropriate medications Hemiarthroplasty scheduled for [address] Hinojosa <Betsey Estes - Last Filed: 09/11/17 11:45> - Progress Note SOAP: Subjective: - Cleared/optimized by Dr. Beckwith for surgery - Consented for procedure both the patient and the patient's son and health care proxy Sebastien Robledo - to the OR for right hip bipolar hemiarthroplasty <Delvis Hinojosa - Last Filed: 09/11/17 16:46>
[2017-09-11] MEDS ORDERED: NS 0.9% 100 ML* 100 ML IVPB ONE (12:00)
[2017-09-11] MEDS ORDERED: NS 0.9% 1000 ML* 1,000 ML IVPB ONE (12:00)
[2017-09-11] MEDS ORDERED: Ondansetron 40 MG VIAL* 2 MG/ML 20 ML VIAL IV PRN (13:35)
[2017-09-11 14:13] LABS: INR 1.11 (0.77-1.02)
[2017-09-11] MEDS ORDERED: Buffered Lidocaine 0.9% SYRIN* 5 ML/SYR SYRINGE INTRADERM ONE (16:21)
[2017-09-11] MEDS ORDERED: PROCHLORPERAZINE INJ 5 MG/ML 2 ML VIAL IV PRN (16:22)
[2017-09-11] MEDS ORDERED: fentaNYL* 50 MCG/ML 2 ML VIAL (100 MCG VIAL) IV PRN (16:22)
[2017-09-11] MEDS ORDERED: Naloxone* 0.4 MG/ML 1 ML VIAL IV PRN (16:22)
[2017-09-11] MEDS ORDERED: Levalbuterol 0.63MG/3ML NEB* UNIT OF USE INH PRN (16:22)
[2017-09-11] MEDS ORDERED: Ondansetron INJ* 2 MG/ML VIAL IV PRN ×2 (16:22→23:52)
[2017-09-11] MEDS ORDERED: NS 0.9% 1000 ML* 1,000 ML IV SCH (16:30)
[2017-09-11] MEDS ORDERED: ceFAZolin 2 GM PREMIX (*) 2 GM/50 ML BAG IVPB ONE (16:36)
[2017-09-11] MEDS ORDERED: Cisatracurium* 2 MG/ML MDV 5 ML ONE (20:58)
[2017-09-11] MEDS ORDERED: Bupivacaine 0.5% SDV PF* 30ML VIAL ONE (21:01)
[2017-09-11] MEDS ORDERED: Dexamethasone IV* 4 MG/ML 1 ML (4 MG) ONE (22:33)
[2017-09-11] MEDS ORDERED: EPHEDrine (Pressors)* 50 MG/ML VIAL ONE (22:33)
[2017-09-11] MEDS ORDERED: Succinylcholine* 20 MG/ML 10 ML VIAL ONE (22:33)
[2017-09-11] MEDS ORDERED: Propofol* 10 MG/ML 20 ML BTL IV PUSH ONE (22:33)
[2017-09-11] MEDS ORDERED: Famotidine IV* 10 MG/ML 2 ML (20 mg) ONE (22:33)
[2017-09-11] MEDS ORDERED: Phenylephrine INJ* 10 MG/ML 1 ML VIAL (10 MG) ONE (22:33)
[2017-09-11] MEDS ORDERED: Lidocaine 2% PF * 5 ML VIAL ONE (22:33)
[2017-09-11] MEDS ORDERED: diPHENhydraMINE IV* 50 MG/ML 1 ml VIAL (BENADRYL) IV PRN (23:52)
[2017-09-11] MEDS ORDERED: oxyCODONE/Acetamin 5/325 MG* TAB PO PRN (23:52)
[2017-09-11] MEDS ORDERED: Bisacodyl SUPP* 10 MG SUPP PR PRN (23:52)
[2017-09-11] MEDS ORDERED: Magnesium Hydroxide LIQ* 30 ML UDC PO PRN (23:52)
[2017-09-11] MEDS ORDERED: Cyclobenzaprine TAB* 10 MG PO PRN (23:52)
[2017-09-12] MEDS: fentaNYL* 50 MCG/ML 2 ML VIAL (100 MCG VIAL) IV PRN ×2 (01:31→07:20)
[2017-09-12] MEDS: Propofol* 100 ML IV SCH ×2 (01:32→07:51)
[2017-09-12] MEDS: Morphine VIAL* 4 MG/ML VIAL (1 ml vial) IV PRN ×3 (02:18→14:14)
[2017-09-12] MEDS: ceFAZolin 1 GM in Dextrose (*) 1 GM/50 ML BAG IVPB SCH ×3 (05:06→22:45)
[2017-09-12 05:33] LABS: Hematocrit 47 % (35-47); Hemoglobin 15.7 g/dl (12.0-16.0); Platelet Count 301 10^3/ul (150-450)
[2017-09-12] MEDS: fentaNYL Patch Check Q Shift 1 NOTE SCH ×2 (07:22→19:10)
--- NOTE | 2017-09-12 07:49 | RAD ---
INDICATION: Line placement COMPARISON: Chest x-ray September 06, 2017 TECHNIQUE: Single AP portable view of the chest was obtained. FINDINGS: Image quality is compromised due to the relative inferiority of a portable chest x-ray. There has been interval placement of an endotracheal tube with the tip terminating below the clavicles and 6.8 cm above the wenceslao. A right internal jugular vein central venous catheter is seen with the tip terminating overlying the SVC. The heart is moderately enlarged. There is density obscuring the left lung base consistent with effusion. There is interval improved aeration of the right lung base relative to the most recent chest x-ray. Visualized bones are normal for the patient's age. IMPRESSION: 1. Interval placement of an endotracheal tube and right central venous catheter in adequate position. 2. Persistent appearance of cardiogenic pulmonary edema with a left lung base pleural effusion. 3. The right lung base pleural effusion appears smaller.
--- NOTE | 2017-09-12 07:59 | RAD ---
INDICATION: Status post right hip arthroplasty TECHNIQUE: An AP view of the pelvis and 2 views of the right where obtained. FINDINGS: There is been interval placement of a right-sided hip prosthesis in anatomic alignment. There is no evidence of periprosthetic loosening or fracture. Postoperative findings include subcutaneous gas as well as surgical skin alexander overlying the lateral hip. IMPRESSION: Interval placement of an anatomically aligned right hip prostheses.
[2017-09-12] MEDS: DULoxetine DR CAP* 20 MG CAP.DR PO SCH (08:01)
[2017-09-12] MEDS: Pregabalin CAP(*) 25 MG PO SCH ×2 (08:01→23:01)
[2017-09-12] MEDS: Metoprolol Tartrate TAB* 25 MG PO SCH ×2 (08:01→23:02)
[2017-09-12] MEDS: Omeprazole CAP* 20 MG PO SCH ×2 (08:01→23:01)
[2017-09-12] MEDS: Docusate CAP* 100 MG PO SCH ×2 (08:01→23:02)
[2017-09-12] MEDS: Saliva Substitute (NF) 1 SPRAY BTL MT SCH (08:01)
[2017-09-12] MEDS: Amiodarone TAB* 200 MG PO SCH (08:01)
[2017-09-12] MEDS: Morphine TAB Extended Release (*) 30 MG TAB.ER PO SCH ×2 (08:01→23:01)
[2017-09-12] MEDS: Magnesium Hydroxide LIQ* 30 ML UDC PO SCH ×2 (08:01→23:02)
[2017-09-12] MEDS: Furosemide TAB* 40 MG PO SCH (08:01)
[2017-09-12] MEDS: Vitamin THERAPEUTIC TAB PO SCH (08:02)
[2017-09-12] MEDS: Spironolactone TAB* 25 MG PO SCH (08:02)
--- NOTE | 2017-09-12 10:14 | PN ---
Subjective Date of Service: 09/12/17 - CC: s/p repair hip fx, POD #1 Interval History: Pt intubated. R hip fx repair yesterday, still on vent post op. Per nurse transient desat last evening, doing well now with plans to extubate. Pt sedated, no history from the patient. Medications Active Medications: Acetaminophen (Tylenol Tab*) 650 mg PO Q4H PRN PRN Reason: FEVER/PAIN Last Admin: 09/08/17 23:23 Dose: 650 mg Al Hydrox/Mg Hydrox/Simethicone (Maalox Plus*) 30 ml PO Q6H PRN PRN Reason: INDIGESTION Albuterol (Ventolin 2.5 Mg/3 Ml Neb.Azul*) 2.5 mg INH [id number] AWAKE PRN PRN Reason: sob/wheezing Amiodarone HCl (Cordarone Tab*) 200 mg PO DAILY [facility] Last Admin: 09/12/17 08:01 Dose: Not Given Bisacodyl (Dulcolax Supp*) 10 mg [place] DAILY PRN PRN Reason: constipation Cyclobenzaprine HCl (Flexeril Tab*) 5 mg PO TID PRN PRN Reason: SPASMS Diphenhydramine HCl (Benadryl Iv*) 12.5 mg IV Q6H PRN PRN Reason: PRURITIS Docusate Sodium (Colace Cap*) 100 mg PO BID [facility] Last Admin: 09/12/17 08:01 Dose: Not Given Duloxetine HCl (Cymbalta Cap*) 20 mg PO DAILY [facility] Last Admin: 09/12/17 08:01 Dose: Not Given Enoxaparin Sodium (Lovenox(*)) 50 mg SUBCUT Q12HR [facility] Fentanyl (Duragesic Patch 12 Mcg/Hr *) 12 mcg TRANSDERM Q72H [facility] Last Admin: 09/09/17 16:46 Dose: 12 mcg Fentanyl Citrate (Fentanyl*) 25 mcg IV Q15M PRN PRN Reason: PAIN - MODERATE Last Admin: 09/12/17 07:20 Dose: 25 mcg Propofol (Diprivan*) 100 mls @ 4.368 mls/hr IV .(Initial Rate) [facility]; Protocol Last Admin: 09/12/17 07:51 Dose: 7.2 mls/hr Cefazolin Sodium/Dextrose (Kefzol 1 Gm In Dextrose Duplex (*)) 1 gm in 50 mls @ 200 mls/hr IVPB Q8H [facility] Stop: 09/12/17 22:14 Last Admin: 09/12/17 05:06 Dose: 200 mls/hr Lactated Ringer's (Lactated Ringers 1000 Ml Bag*) 1,000 mls @ 75 mls/hr IV PER RATE [facility] Last Admin: 09/12/17 01:32 Dose: 75 mls/hr Lactulose (Lactulose*) 30 ml PO Q6H PRN PRN Reason: constipation Levalbuterol HCl (Xopenex 0.63mg/3ml Neb*) 0.63 mg INH ONCE PRN PRN Reason: SOB/WHEEZING Stop: 09/12/17 16:21 Loperamide HCl (Imodium Cap*) 2 mg PO Q4H PRN PRN Reason: DIARRHEA Magnesium Hydroxide (Milk Of Magnesia Liq*) 30 ml PO BID [facility] Last Admin: 09/12/17 08:01 Dose: Not Given Magnesium Hydroxide (Milk Of Magnesia Liq*) 30 ml PO Q6H PRN PRN Reason: constipation Metoprolol Tartrate (Lopressor Tab*) 12.5 mg PO BID [facility] Last Admin: 09/12/17 08:01 Dose: Not Given Morphine Sulfate (Morphine Vial*) 1 mg IV Q1H PRN PRN Reason: PAIN Last Admin: 09/12/17 02:18 Dose: 1 mg Morphine Sulfate (Ms Contin(*)) 60 mg PO BID [facility] Last Admin: 09/12/17 08:01 Dose: Not Given Multivitamins (Theragran Tab*) 1 tab PO DAILY [facility] Last Admin: 09/12/17 08:02 Dose: Not Given Omeprazole (Prilosec Cap*) 40 mg PO BID [facility] Last Admin: 09/12/17 08:01 Dose: Not Given Ondansetron HCl (Zofran Inj*) 4 mg IV Q6H PRN PRN Reason: nausea Oxycodone/Acetaminophen (Percocet 5/325 Tab*) 2 tab PO Q4H PRN PRN Reason: PAIN Oxycodone/Acetaminophen (Percocet 5/325 Tab*) 1 tab PO Q4H PRN PRN Reason: PAIN Pharmacy Profile Note (Fentanyl Patch Check Q Shift) 1 note N/A 0700,1900 [facility] Last Admin: 09/12/17 07:22 Dose: 1 note Polyvinyl Alcohol (Polyvinyl Alcohol 1.4% Opth*) 2 drop BOTH EYES DAILY PRN PRN Reason: DRY EYE Pregabalin (Lyrica Cap(*)) 25 mg PO BID [facility] Last Admin: 09/12/17 08:01 Dose: Not Given Saliva Substitute (Biotene Moisturizing Mouth (Nf)) 2 spray MT QAM [facility]; Protocol Last Admin: 09/12/17 08:01 Dose: Not Given Objective Vital Signs: Temp Pulse Resp BP Pulse Ox 97.9 F 82 16 83/57 99 09/12/17 07:00 09/12/17 07:00 09/12/17 07:20 09/12/17 04:00 09/12/17 08:02 Intake and Output Last 24 Hours 09/10/17 09/11/17 09/12/17 09/13/17 04:59 04:59 04:59 04:59 Intake Total 550 540 50 600 Output Total 875 580 125 250 Balance -325 -40 -75 350 Weight 107 lb 128 lb 8.472 oz 120 lb 2.431 oz Intake: IV Fluids 50 546 LR 546 NS 100ML, Cefazolin 2G 50 Medicated IV 54 CC - Propofol/Diprivan 54 Oral 550 540 0 Output: Urine 200 300 0 [place] 675 280 125 250 Other: # Bowel Movements 0 0 0 Oxygen Devices in Use Now: Endotracheal Tube, Mechanical Ventilator Appearance: thin, frail elederly female, intubated, sedated, lying flat, no distress, appears chronically ill. Eyes: No Scleral Icterus Ears/Nose/Mouth/Throat: Mucous Membranes Moist, - Neck: Trachea Midline Respiratory: Symmetrical Chest Expansion and Respiratory Effort - few rhonchi on ventilator. Cardiovascular: RRR - systolic murmur heard at the apex, vent sounds heard in cardiac area. Abdominal: No Hepatosplenomegaly Extremities: - - R hip dressings on, no edema Neurological: - - sedated, intubated, not able to fully examine neurologically. Laboratory Results: 09/12/17 05:18 09/12/17 05:18 INR (Anticoag Therapy) 1.11 (0.77-1.02) H 09/11/17 13:36 APTT 32.7 seconds (26.0-36.3) 09/06/17 12:24 Total Bilirubin 1.70 mg/dL (0.2-1.0) H 09/08/17 05:36 AST 36 U/L (13-39) 09/08/17 05:36 ALT 35 U/L (7-52) 09/08/17 05:36 Alkaline Phosphatase 213 U/L (34-104) H 09/08/17 05:36 B-Natriuretic Peptide 822 pg/mL (-100) H 09/11/17 10:34 Total Protein 5.2 g/dL (6.4-8.9) L 09/08/17 05:36 Albumin 3.1 g/dL (3.2-5.2) L 09/08/17 05:36 Globulin 2.1 g/dL (2-4) 09/08/17 05:36 Albumin/Globulin Ratio 1.5 (1-3) 09/08/17 05:36 TSH 2.94 mcIU/mL (0.34-5.60) 09/06/17 12:25 09/06/17 09/06/17 09/07/17 12:25 19:27 00:10 Troponin I 0.07 H* 0.08 H* 0.11 H* 09/07/17 09/08/17 09/11/17 06:31 05:36 10:34 Troponin I 0.09 H* 0.30 H* 0.14 H* Diagnostic Imaging: ECHO 09/07/17: EF 55%, moderate LVH, mild AI, mild to moderate MR, moderate to severe TR, PA pr mildly elevated EKG Data: 09/12/17 NSR, low volts limb leads. Assessment/Plan 86 yo frail female with hip fracture s/p repair, POD #1, multiple comorbidities : frailty, amyloidosis, restrictive CM and valvular heart disease, IgA myeloma, Hx GI bleed, CRI, atrial flutter, paroxysmal on amiodarone. Atrial flutter: Agree with continuation of amiodarone and beta mattie for now. Agree with lovenox/anticoagulation. Restrictive CM: Post op hypotension (on vent), IVF and increased BUN, mild noted. Careful monitoring of fluid to avoid overload. Dr Isidra Beckwith's notes reviewed, I concur with her evaluation.
--- NOTE | 2017-09-12 11:22 | CONSULT ---
Consult Consult: Consultation Note Critical Care Requesting Physician: Dr Pichardo Reason for consult: post op , intubated Limitations in history/physical: intubated Date of consult: 09/12/2017 HPI: 86y F pmhx of amyloidosis, LV diastolic dysfunction, HLD, GERD, breast Ca; comes to ER 09/06 after a fall and right hip pain. Found to have right femoral neck fracture. Patient had atrial flutter and signs of decompensated diastolic heart failiure on admission. She is post op from Right hip hemiarthroplasty . Post op had issues with oxygenation, requiring 100%, then higher peep and some APRV. Since then has been more stable, oxygen and peep has been weaned down. In the morning she was 60% peep 8, sat 100%, now down to 40% and peep 5, sat 100%. She is on propofol for sedation,no pressors, IVF LR infusion. BP stable, jones in place and making urine. She wakes to commands on lower sedation. Tmax 99.1. ED/floor Course: as above ROS: limited due to being intubated PMHx: amyloidosis, LV diastolic dysfunction, HLD, GERD, breast Ca PSHx: left breast lumpectomy, hysterectomy, tonsillectomy Family History: HTN Social History: Alcohol-none, Smoking-none, Drug use-none Allergies: Allergies Allergy/AdvReac Type Severity Reaction Status Date / Time No Known Allergies Allergy Verified 06/16/15 05:53 Home Medications: Artificial Tears* 15 ML BTL [Polyvinyl Alcohol 1.4% OPTH*] 2 drop BOTH EYES DAILY PRN 02/05/15 [History Confirmed 09/06/17] Furosemide TAB* [Lasix TAB*] 120 mg PO DAILY 02/05/15 [History Confirmed ] Omeprazole CAP* [PriLOSEC CAP*] 40 mg PO BID 02/05/15 [History Confirmed ] oxyCODONE TAB* [Roxycodone TAB*] 5 mg PO Q3HR PRN MDD 40 mg 02/05/15 [History Confirmed 09/06/17] Pregabalin CAP(*) [Lyrica CAP(*)] 25 mg PO BID 05/25/15 [History Confirmed 09/06] Loperamide CAP* [Imodium CAP*] 2 mg PO Q4H PRN 06/16/15 [History Confirmed 09/06] Acetaminophen TAB* [Tylenol TAB*] 650 mg PO Q6H PRN 05/07/17 [History Confirmed 09/06/17] Al Hydrox/Mg Hydrox/Vanna BULK* [Mylanta - BULK BOT*] 15 ml PO Q4HR PRN 05/07/17 [History Confirmed 09/06/17] Metoprolol Tartrate TAB* [Lopressor TAB*] 12.5 mg PO BID 05/07/17 [History Confirmed 09/06/17] Morphine Sulfate [Morphine Sulfate ER] 60 mg PO BID 05/07/17 [History Confirmed 09/06/17] Ondansetron ODT TAB* [Zofran 4 MG Odt TAB*] 8 mg PO TID PRN 05/07/17 [History Confirmed 09/06/17] Sennosides/Docusate Sodium [Senna-S Tablet] 2 tab PO BID PRN 05/07/17 [History Confirmed 09/06/17] Conjugated Estrogens VAG CM* [Premarin VAG CREAM*] 1 applic VAGINAL MOFR [History Confirmed 09/06/17] DULoxetine DR CAP* [Cymbalta CAP*] 20 mg PO DAILY 09/06/17 [History Confirmed ] Docusate CAP* [Colace Cap*] 200 mg PO DAILY PRN 09/06/17 [History Confirmed ] Fluoride (Sodium) [Prevident 5000 Plus] 1.1 % PO BID 09/06/17 [History Confirmed 09/06/17] Saliva Substitute (NF) [Biotene Moisturizing Mouth (NF)] 2 spray PO QAM [History Confirmed 09/06/17] Spironolactone TAB* [Aldactone TAB*] 25 mg PO BID 09/06/17 [History Confirmed ] fentaNYL PATCH 12 MCG/HR * [Duragesic Patch 12 Mcg/Hr *] 12 mcg TRANSDERM Q72H 09/06/17 [History Confirmed 09/06/17] Tele: nsr Vitals: Vital Signs Temp 99.1 F 09/12/17 11:00 Pulse 91 09/12/17 11:00 Resp 18 09/12/17 11:00 BP 116/95 09/12/17 11:00 Pulse Ox 100 09/12/17 10:00 Intake & Output 09/11/17 09/12/17 09/12/17 18:59 06:59 18:59 Intake Total 0 650 Output Total 125 250 Balance -125 400 Weight 120 lb 2.431 oz Intake: IV Fluids 596 LR 546 NS 100ML, Cefazolin 2G 50 Medicated IV 54 CC - Propofol/Diprivan 54 Oral 0 Output: Jones 125 250 O2/Vent: AC peep 5, 40%, rate 12 Infusions: propofol, LR 75cc/hr Current Medications: Acetaminophen (Tylenol Tab*) 650 mg PO Q4H PRN PRN Reason: FEVER/PAIN Last Admin: 09/08/17 23:23 Dose: 650 mg Al Hydrox/Mg Hydrox/Simethicone (Maalox Plus*) 30 ml PO Q6H PRN PRN Reason: INDIGESTION Albuterol (Ventolin 2.5 Mg/3 Ml Neb.Azul*) 2.5 mg INH [id number] AWAKE PRN PRN Reason: sob/wheezing Amiodarone HCl (Cordarone Tab*) 200 mg PO DAILY [facility] Last Admin: 09/12/17 08:01 Dose: Not Given Bisacodyl (Dulcolax Supp*) 10 mg MD DAILY PRN PRN Reason: constipation Cyclobenzaprine HCl (Flexeril Tab*) 5 mg PO TID PRN PRN Reason: SPASMS Diphenhydramine HCl (Benadryl Iv*) 12.5 mg IV Q6H PRN PRN Reason: PRURITIS Docusate Sodium (Colace Cap*) 100 mg PO BID [facility] Last Admin: 09/12/17 08:01 Dose: Not Given Duloxetine HCl (Cymbalta Cap*) 20 mg PO DAILY [facility] Last Admin: 09/12/17 08:01 Dose: Not Given Enoxaparin Sodium (Lovenox(*)) 50 mg SUBCUT Q12HR [facility] Fentanyl (Duragesic Patch 12 Mcg/Hr *) 12 mcg TRANSDERM Q72H [facility] Last Admin: 09/09/17 16:46 Dose: 12 mcg Fentanyl Citrate (Fentanyl*) 25 mcg IV Q15M PRN PRN Reason: PAIN - MODERATE Last Admin: 09/12/17 07:20 Dose: 25 mcg Propofol (Diprivan*) 100 mls @ 4.368 mls/hr IV .(Initial Rate) [facility]; Protocol Last Admin: 09/12/17 07:51 Dose: 7.2 mls/hr Cefazolin Sodium/Dextrose (Kefzol 1 Gm In Dextrose Duplex (*)) 1 gm in 50 mls @ 200 mls/hr IVPB Q8H [facility] Stop: 09/12/17 22:14 Last Admin: 09/12/17 05:06 Dose: 200 mls/hr Lactated Ringer's (Lactated Ringers 1000 Ml Bag*) 1,000 mls @ 75 mls/hr IV PER RATE [facility] Last Admin: 09/12/17 10:44 Dose: 75 mls/hr Lactulose (Lactulose*) 30 ml PO Q6H PRN PRN Reason: constipation Levalbuterol HCl (Xopenex 0.63mg/3ml Neb*) 0.63 mg INH ONCE PRN PRN Reason: SOB/WHEEZING Stop: 09/12/17 16:21 Loperamide HCl (Imodium Cap*) 2 mg PO Q4H PRN PRN Reason: DIARRHEA Magnesium Hydroxide (Milk Of Magnesia Liq*) 30 ml PO BID [facility] Last Admin: 09/12/17 08:01 Dose: Not Given Magnesium Hydroxide (Milk Of Magnesia Liq*) 30 ml PO Q6H PRN PRN Reason: constipation Metoprolol Tartrate (Lopressor Tab*) 12.5 mg PO BID [facility] Last Admin: 09/12/17 08:01 Dose: Not Given Morphine Sulfate (Morphine Vial*) 1 mg IV Q1H PRN PRN Reason: PAIN Last Admin: 09/12/17 02:18 Dose: 1 mg Morphine Sulfate (Ms Contin(*)) 60 mg PO BID [facility] Last Admin: 09/12/17 08:01 Dose: Not Given Multivitamins (Theragran Tab*) 1 tab PO DAILY [facility] Last Admin: 09/12/17 08:02 Dose: Not Given Omeprazole (Prilosec Cap*) 40 mg PO BID [facility] Last Admin: 09/12/17 08:01 Dose: Not Given Ondansetron HCl (Zofran Inj*) 4 mg IV Q6H PRN PRN Reason: nausea Oxycodone/Acetaminophen (Percocet 5/325 Tab*) 2 tab PO Q4H PRN PRN Reason: PAIN Oxycodone/Acetaminophen (Percocet 5/325 Tab*) 1 tab PO Q4H PRN PRN Reason: PAIN Pharmacy Profile Note (Fentanyl Patch Check Q Shift) 1 note N/A 0700,1900 [facility] Last Admin: 09/12/17 07:22 Dose: 1 note Polyvinyl Alcohol (Polyvinyl Alcohol 1.4% Opth*) 2 drop BOTH EYES DAILY PRN PRN Reason: DRY EYE Pregabalin (Lyrica Cap(*)) 25 mg PO BID [facility] Last Admin: 09/12/17 08:01 Dose: Not Given Saliva Substitute (Biotene Moisturizing Mouth (Nf)) 2 spray [facility]; Protocol Last Admin: 09/12/17 08:01 Dose: Not Given Physical Exam: General: intubated, on sedation but awakens, slow to follow commands, hard of hearing, no distress, uncomfortable Head: normocephalic, atraumatic HEENT: no pallor, no icterus, moist mucous membranes Neck: soft, supple, no jvd CVS: normal rate, regular, no murmur Resp: bilateral air entry, no rhales, no wheeze, no rhonchi, no acc muscle use Abdomen: soft, nontender, nondistended, bowel sounds present Ext: pulses+, warm, no edema; right hip site intact Skin: intact, no breakdown, no dryness Neuro: awakens off sedation now, moves ext, intubated, slow to respond to commands but following some, pupils reactive. Labs: Laboratory Results - last 24 hr 09/11/17 09/11/17 09/11/17 10:34 10:34 13:36 Hgb Hct Plt Count MPV INR (Anticoag Therapy) 1.11 H Sodium Potassium Chloride Carbon Dioxide Anion Gap BUN Creatinine Est GFR ( Amer) Est GFR (Non-Af Amer) BUN/Creatinine Ratio Glucose Hemoglobin A1c 7.3 H Calcium Digoxin 2.0 09/12/17 09/12/17 05:18 05:18 Hgb 15.7 Hct 47 Plt Count 301 MPV 9.0 INR (Anticoag Therapy) Sodium 138 Potassium 4.1 Chloride 96 L Carbon Dioxide 28 Anion Gap 14 H BUN 30 H Creatinine 0.80 Est GFR ( Amer) 82.3 Est GFR (Non-Af Amer) 68.0 BUN/Creatinine Ratio 37.5 H Glucose 163 H Hemoglobin A1c Calcium 8.6 Digoxin Imaging: cxr 09/12 - ett above wenceslao, no infiltrate/congestion Assessment: 86y F pmhx of amyloidosis, LV diastolic dysfunction, HLD, GERD, breast Ca; comes to ER 09/06 after a fall and right hip pain. Found to have right femoral neck fracture. Patient had atrial flutter and signs of decompensated diastolic heart failiure on admission. She is post op from Right hip hemiarthroplasty 09/11. Post op had issues with oxygenation, requiring 100%, then higher peep and some APRV. Since then has been more stable, oxygen and peep has been weaned down. -post op hypoxic pulmonary insufficiency -s/p Right hip hemiarthroplasty - 09/11 - pod #1 -s/p fall with right femoral neck fracture -atrial flutter -MATTHEW, improved LV diastolic dysfunction amyloidosis Plan: Neuro- weaned off propofol; awake for more alertness and orientation. delirium prec. CVS- nsr, cont metoprolol and amio for rate control. lovenox 50mg bid for AC to be started. euvolemic appearing otherwise. Resp- intubated on 40% AC now; cpap trial ongoing. plan for weaning and extubation later this morning. VAP bundle, bronchodilators prn. CXR without acute findings. ID- afebrile. periop abx given. GI- NPO. Renal- Cr okay. MATTHEW from admission improved. on LR 75cc/hour, cont for now. Heme- hg stable. plt okay. lovenox 50mg sq bid for AC. Endo- fingersticks as needed. Musculsk- s/p right hip hemiarthroplasty; right hip wound care. no drains in place. Wounds- wound care to right hip surgical site Nutrition- NPO, start PO diet once extubated and passed swallow. DVT prophylaxis: lovenox bid GI prophylaxis: ppi Central Line: no Arterial Line: no Jones Cathetor: no Disposition: ICU Code Status: full code for surgery PCP to have discussion about goals of care after surgery complete. Total Critical Care time is 40 minutes, excluding procedures/teaching Allen Cisneros MD [employer] (Electronically Signed)
--- NOTE | 2017-09-12 12:35 | RAD ---
INDICATION: Right hip arthroplasty COMPARISON: September 12, 2017 TECHNIQUE: A portable view the pelvis is submitted FINDINGS: There is right hip arthroplasty. The prosthesis appears normally seated. The soft tissue changes are again seen and are compatible with recent surgery. IMPRESSION: RIGHT HIP ARTHROPLASTY. NO EVIDENCE OF HARDWARE FAILURE.
--- NOTE | 2017-09-12 13:33 | PN ---
Progress Note - Progress Note Date of Service: 09/12/17 SOAP: Subjective: [Pt was seen laying in bed this am. Did not respond to commands or questions. ] Objective: [General: Pt is laying in bed with eyes closed. She stirs to her name being called but does not speak. She moans for the duration of the visit. MSK, RLE: Dressing is c/d/i. She continues to be in the abductor pillow. +df/ pf. 2+ DP pulse. ] Vital Signs Temp 100.0 F 09/12/17 13:00 Pulse 112 09/12/17 13:00 Resp 16 09/12/17 13:06 BP 153/87 09/12/17 12:00 Pulse Ox 99 09/12/17 13:00 Intake & Output 09/11/17 09/12/17 09/12/17 18:59 06:59 18:59 Intake Total 0 650 Output Total 125 250 125 Balance -125 400 -125 Weight 120 lb 2.431 oz Intake: IV Fluids 596 LR 546 NS 100ML, Cefazolin 2G 50 Medicated IV 54 CC - Propofol/Diprivan 54 Oral 0 Output: Ocho[place] 125 250 125 Assessment: [POD 1 right hip hemiarthroplasty] Plan: [- continue with medical management per hospitalists and cardiology - pain medications as needed - dressing change tomorrow - WBAT ]
[2017-09-12] MEDS: Enoxaparin(*) 60 MG/0.6 ML SYR SUBCUT SCH ×2 (13:49→20:00)
[2017-09-12] MEDS ORDERED: HYDROmorphone INJ* 2 MG/ML CARPUJECT SYRINGE IV SLOW PU PRN ×2 (14:19→15:33)
--- NOTE | 2017-09-12 14:35 | RAD ---
INDICATION: Postoperative. Intubated COMPARISON: April 25, 2017 TECHNIQUE: An AP portable view obtained at 1125 hours is submitted. FINDINGS: Bones/Soft Tissues: There are no acute bony findings. There is a right subclavian catheter terminating in the superior vena cava. There is an endotracheal tube in satisfactory position. Cardiomediastinal: The heart is top normal in size. The silhouette has decreased in size. There is uncoiling of the thoracic aorta. Lungs: There is hyperinflation with chronic interstitial changes.. Pleura: Bilateral pleural effusions appearing slightly smaller than noted previously.. Other: None IMPRESSION: Hyperinflation. Interval decrease in heart size and interval decrease in size of left-sided effusion. Endotracheal tube in proper position.
[2017-09-12] MEDS ORDERED: HYDROmorphone INJ* 2 MG/ML CARPUJECT SYRINGE IV SLOW PU ONE (15:34)
[2017-09-12] MEDS: fentaNYL PATCH 12 MCG/HR TRANSDERM SCH (17:19)
[2017-09-13] MEDS: Acetaminophen TAB* 325 MG PO PRN (00:32)
--- NOTE | 2017-09-13 02:24 | OP ---
DATE OF OPERATION: 09/11/17 - ROOM #ICU-04 DATE OF : 30 SURGEON: Delvis Hinojosa MD WAXER TENDER: GIANLUCA Gaytan. A PA was required for the length of the procedure for positioning, retraction, instrumentation and closure, assistance. ANESTHESIOLOGIST: Dr. Justyn Mccall ANESTHESIA: General anesthesia, local anesthesia. PRE-OP DIAGNOSIS: Right hip fracture, displaced femoral neck. POST-OP DIAGNOSIS: Right hip fracture, displaced femoral neck. OPERATIVE PROCEDURE: Right hip bipolar hemiarthroplasty for open treatment of femoral neck fracture. ANTIBIOTICS: Ancef 2 g IV. IV FLUIDS: 1000 cc crystalloid. GEID-RO-UMED INCISION TIME: 78 minutes. SPECIMEN: Femoral head and neck, right, bone. IMPLANTS: Gaylord Accolade TMZF plus 127-degree neck, angle femoral stem size 4.5. Femoral head utilized with a 28 mm head plus 8 mm offset, Gaylord, LFIT. Bipolar component also from Gaylord UHR [place] head. ESTIMATED BLOOD LOSS: 100 to 150 cc. COMPLICATIONS: None. INDICATIONS FOR PROCEDURE: The patient is an 86-year-old woman, who lives at [facility] in the [facility], who was found to have sustained a fall and fracture. The patient had tried to go to the bathroom on her own without assistance. It was felt that the patient was not using her walker. The patient uses a walker for some form of ambulation. That injury was sustained on 09/06/17. The patient was brought in by ambulance to [facility] where a diagnosis was made of a right displaced femoral neck fracture. To reiterate some details about the injury itself, the patient was unable to provide us details as to whether the fall was at night or early in the morning. She could not provide exact details as to how she fell. The patient was admitted to the hospitalist service with Cardiology consulting. The patient has a history of angina, congestive heart failure and tachycardia. The patient was noted to be in atrial flutter, rapid with marginal blood pressure and hypotension. She was also noted to have mild aortic and mitral insufficiency with mild to moderate pulmonary hypertension. The patient was noted to be quite tired while we were speaking to her. The patient was able to hold a conversation, but was not alert and oriented x3. The patient's healthcare proxy and son lives in [place] and I spoke with him on 09/07/17. He was not yet ready to decide whether the recommended surgery or a palliative care. Hospitalist service and Cardiology were leaning towards recommending palliative care given the high risk of the surgery with a patient in rapid atrial flutter. However, Medicine and Cardiology recommendations resulted in the conversion of a dysrhythmia to a normal sinus rhythm. They then felt that the patient would be safer to undergo surgery. The patient's son and [id number] came in to town and were here for 3 days and discussed in detail with the patient, surgery versus nonoperative management. To clarify, they were here for 3 days. They spoke at length with the patient's primary care doctor about the risks and benefits of surgery. I had spoken with him on 09/07/17 and then spoke with the patient's son again on 09/10/17 about the procedure and pros and cons of operative versus nonoperative management. The chief among the risks of both surgical and nonsurgical management is , but we also discussed bleeding, infection, nerve or blood vessel injury, hip dislocation, decubitus ulcers, atelectasis, pneumonia, urinary tract infection. Given the patient's multiple medical problems in general, poor fitness, thinness, poor stamina, she certainly was at risk regardless of treatment. The patient as well as her son and [id number] decided to proceed with surgery. They made that decision during the day on 09/10/17. Therefore, we made the patient nothing to eat after midnight on 09/10/17 for surgery on . The patient's case was added on for immediately following elective cases on . We would bump into later in the evening to start. As mentioned above, I discussed with the patient and her son risks and potential complications of surgery including bleeding, infection, nerve or blood vessel injury, hip pain, osteoarthritis, acetabular wear, need for revision surgery, periprosthetic fracture, dislocation, , blood clot and pulmonary embolus. DESCRIPTION OF PROCEDURE: In preoperative holding, I obtained consent from the patient. I did this because the patient's son felt that the patient could consent for the procedure on her own. While the patient seemed to understand the procedure and its risks and benefits, as she was not fully alert and oriented x3, I decided also to obtain surgical consent by telephone from her son. Operative extremity was also marked in preoperative holding. The patient was taken back to the operative room and placed supine on operating room table. Arterial line, excellent peripheral IV access and central line access were obtained by anesthesia. The patient was intubated. The patient was converted to a lateral decubitus position. It should be mentioned that first the patient's Ochoa was changed as she currently had leaking around the prior Ochoa that had been placed. In the lateral decubitus position, an axillary roll was placed, pegboard was in position. Pegs were placed. All bony prominences were padded. I cleaned the area about the anus of any trace amount of feces. I then used a ChloraPrep to prep the buttocks and perineal area. I next placed a nonsterile U-drapes, keeping the anus and vagina and perineal tissue out of the planned surgical field. I then again used a ChloraPrep to clean the entire area of planned future formal prep and drape. Then, an sourcing assistant performed a prep with chlorhexidine scrub followed by ChloraPrep. Draping was performed. Surgical time-out was performed. A standard skin incision for the posterior approach to the hip was performed, centered about the greater tuberosity. I changed knifes and extended this incision down to the gluteus eduin fascia and iliotibial band. I then split this. I then split the gluteus eduin muscle proximally. I then extended fully the hip and internally rotated it. I debrided some bursa about the greater trochanter. I placed Cobra retractors x2. I identified the piriformis and placed a stitch with Ethibond #2 suture in it. I next released the piriformis of the proximal femur. I then released a sleeve of tissue, external rotators off the proximal femur. I next placed 1 more stitch with a FiberWire # 2 suture through that tissue. I released the capsule a little bit inferiorly of the hip. The labrum had been preserved. Irrigation. I flexed and internally rotated the hip. I performed a bone cut with an oscillating saw after having placed retractors. I next extended and internally rotated the hip and removed the femoral head and neck with a vegetable sorter device. I sized the femoral head to a 53 mm head. I next trialed 52, 53 and 54 and liked the 53 the best. I next turned my attention to the proximal femur with hip flexed. I used a cup cookie cutter and I then used a canal finder and then I broached progressively higher. The patient's proximal femur was notable for a very unsubstantial lesser trochanter and a very capacious, very wide proximal femur. Part of the fracture was noted to extend into the lesser trochanter. The width of the proximal femur gave me some flexibility as to the amount of version that I dialed in. During the course of my trialing, I tried several amounts of anteversion ending up placing a more anteverted stem in place. I next trialed using trial components. I decided on a high offset neck plus 8 mm. I liked the stability with my final trial components with the hip stable posteriorly even with the hip flexed 90 degrees and internally rotated 90 degrees. Limb length seemed equivalent. I placed the final femur. I then retrialed with trial head and neck. I still had equivalent stability of the hip. I next placed the final small and large heads. I trialed the femur for stability and it was excellent. I next placed 3 drills in the proximal femur using a 2 mm drill bit. I placed additional stitches in the external rotators for a total of 5 stitches. I pulled these sutures through the proximal femur and then tied them with the hip extended and in a slight amount of external rotation. This provided a nice cuff of tissue posteriorly. Irrigation. I next closed the gluteus eduin fascia and ITB fascia with running stitches using Ethibond 0 and Vicryl 0 suture. Irrigation. I next closed the subcutaneous tissue with buried simple stitches using Vicryl 2-0 suture. Closure of the skin with alexander. Xeroform, 4x4s, ABDs, foam tape. The patient was converted into a supine position. An abduction wedge pillow was placed. The patient was not extubated. The patient was transferred to the ICU. DISPOSITION: The ICU was to manage the patient overnight given her multiple medical problems. When appropriate, she will be transferred to the floor. The patient will start physical therapy with weightbearing as tolerated with posterior hip precautions. She will receive Ancef 1 g IV q.8 hours x24 hours postop. She will be started on anticoagulation per Medicine given the patient' s history of dysrhythmia. We will start, per Medicine, Lovenox 50 mg subcu daily starting in the morning after surgery. Wound care instructions include a dressing change on postoperative day 3 and the patient will see me in the office 10 to 14 days postoperatively for x-rays and a wound check. [id number]/[facility] #: [id number] ROGELIO
[2017-09-13] MEDS: fentaNYL Patch Check Q Shift 1 NOTE SCH ×3 (05:36→18:56)
[2017-09-13 05:54] LABS: Hematocrit 42 % (35-47); Mean Platelet Volume 9.4 um3 (7.4-10.4); Platelet Count 295 10^3/ul (150-450)
[2017-09-13] MEDS: Morphine VIAL* 4 MG/ML VIAL (1 ml vial) IV PRN ×4 (08:22→16:10)
[2017-09-13] MEDS: Enoxaparin(*) 60 MG/0.6 ML SYR SUBCUT SCH ×2 (08:30→20:56)
[2017-09-13] MEDS ORDERED: Metoprolol Tartrate IV* 1 MG/ML 5 ML VIAL IV PRN (11:15)
[2017-09-13] MEDS: Metoprolol Tartrate TAB* 25 MG PO SCH ×2 (12:39→20:54)
[2017-09-13] MEDS: Docusate CAP* 100 MG PO SCH ×2 (12:40→20:54)
[2017-09-13] MEDS: Amiodarone TAB* 200 MG PO SCH (12:40)
[2017-09-13] MEDS: Vitamin THERAPEUTIC TAB PO SCH (12:41)
[2017-09-13] MEDS: Pregabalin CAP(*) 25 MG PO SCH ×2 (12:41→20:54)
[2017-09-13] MEDS: Morphine TAB Extended Release (*) 30 MG TAB.ER PO SCH (12:42)
[2017-09-13] MEDS: Magnesium Hydroxide LIQ* 30 ML UDC PO SCH ×2 (12:42→20:56)
[2017-09-13] MEDS: DULoxetine DR CAP* 20 MG CAP.DR PO SCH (12:44)
[2017-09-13] MEDS: KCL 20 MEQ/100 ML IVPREMIX* 100 ML BAG IV SCH ×2 (12:48→16:10)
[2017-09-13] MEDS: Saliva Substitute (NF) 1 SPRAY BTL MT SCH (12:48)
[2017-09-13] MEDS: Omeprazole CAP* 20 MG PO SCH (12:53)
--- NOTE | 2017-09-13 15:32 | PN ---
Progress Note - Progress Note Date of Service: 09/13/17 SOAP: Subjective: POD #2 s/p right hip hemiarthroplasty with Dr. Hinojosa. Pt was seen laying in bed. She reponds to her name. She cannot follow commands well. Yells for help frequently and asks for help but can't explain what kind of help she needs. VSS overnight. Objective: Vital Signs Temp 97.4 F 09/13/17 11:38 Pulse 112 09/13/17 11:38 Resp 17 09/13/17 15:02 BP 136/67 09/13/17 11:38 Pulse Ox 94 09/13/17 11:38 Intake & Output 09/12/17 09/13/17 09/13/17 18:59 06:59 18:59 Intake Total 692 1300 835 Output Total 210 440 400 Balance 482 860 435 Weight 120 lb 9.486 oz Intake: IV Fluids 648 1124 595 LR 648 1124 595 IVPB 86 LR 86 Medicated IV 44 CC - Propofol/Diprivan 44 Oral 90 240 Output: Ochoa 210 440 400 Other: Date of Last Bowel 09/14/17 Movement # Bowel Movements 0 Estimated Stool Amount Small Laboratory Results - last 24 hr 09/13/17 09/13/17 05:19 05:19 Hgb 14.0 Hct 42 Plt Count 295 MPV 9.4 Sodium 141 Potassium 3.4 L Chloride 98 L Carbon Dioxide 33 H Anion Gap 10 BUN 28 H Creatinine 0.79 Est GFR ( Amer) 83.5 Est GFR (Non-Af Amer) 69.0 BUN/Creatinine Ratio 35.4 H Glucose 164 H Calcium 8.9 Magnesium 2.2 General: WN, WD, lying in bed. RLE: Dressing changed today, dressing without purulent discharge. Skin of hip without erythema, warmth. Incision clean, dry, intact. Small 2 cm abrasion distal to incision without drainage, erythema, warmth. Able to DF/PF at ankle. 2 + DP pulse. Assessment: PO date #2 s/p right hip hemiarthroplasty with Dr. Hinojosa on 09/11/17. Plan: - Continue PT/OT - Post-op abx complete - DVT prophylaxis per medicine, Lovenox - Dressing changed today - F/U in clinic 10-14 days post op - Discharge when stable by medicine
[2017-09-13] MEDS: oxyCODONE/Acetamin 5/325 MG* TAB PO PRN (18:11)
[2017-09-13] MEDS ORDERED: NS 0.9% 500 ML* 500 ML IV ONE ×2 (21:00→23:00)
[2017-09-14] MEDS: HYDROmorphone INJ* 0.5 MG/0.5 ML SYRINGE IV SLOW PU PRN (03:28)
[2017-09-14] MEDS: oxyCODONE/Acetamin 5/325 MG* TAB PO PRN ×3 (05:34→20:02)
[2017-09-14 06:48] LABS: Hematocrit 34 % (35-47); Hemoglobin 11.4 g/dl (12.0-16.0); Mean Corpuscular HGB Conc 34 g/dl (31-36); Mean Corpuscular Hemoglobin 31 pg (27-31); Mean Corpuscular Volume 93 fL (80-97); Mean Platelet Volume 9.8 um3 (7.4-10.4); Platelet Count 239 10^3/ul (150-450); Red Blood Count 3.65 10^6/ul (4.00-5.40); Red Cell Distribution Width 17 % (10.5-15); White Blood Count 12.8 10^3/ul (3.5-10.8)
[2017-09-14] MEDS: fentaNYL Patch Check Q Shift 1 NOTE SCH ×2 (07:15→18:56)
[2017-09-14] MEDS: Amiodarone TAB* 200 MG PO SCH (08:09)
[2017-09-14] MEDS: Metoprolol Tartrate TAB* 25 MG PO SCH ×2 (08:09→20:04)
--- NOTE | 2017-09-14 09:26 | PN ---
Progress Note - Progress Note Date of Service: 09/14/17 SOAP: Subjective: POD #3 s/p right hip hemiarthroplasty with Dr. Hinojosa. Pt was seen sleeping in bed. She responds to her name. Objective: Vital Signs Temp 97.7 F 09/14/17 08:08 Pulse 88 09/14/17 08:08 Resp 16 09/14/17 08:09 BP 90/47 09/14/17 08:08 Pulse Ox 92 09/14/17 08:08 Intake & Output 09/13/17 09/14/17 09/14/17 18:59 06:59 18:59 Intake Total 835 2510 0 Output Total 400 750 Balance 435 1760 0 Weight 118 lb 4.8 oz Intake: IV Fluids 595 2310 LR 595 1310 NS (0.9%) 1000 IVPB 200 NS (0.9%) 200 Oral 240 0 0 Output: Ochoa 400 750 Other: Date of Last Bowel 09/14/17 Movement # Bowel Movements 0 1 Estimated Stool Amount Small Large Laboratory Results - last 24 hr 09/14/17 09/14/17 06:31 06:31 WBC 12.8 H RBC 3.65 L Hgb 11.4 L Hct 34 L MCV 93 MCH 31 MCHC 34 RDW 17 H Plt Count 239 MPV 9.8 Sodium 143 Potassium 3.7 Chloride 103 Carbon Dioxide 32 Anion Gap 8 BUN 21 Creatinine 0.64 Est GFR ( Amer) 106.5 Est GFR (Non-Af Amer) 88.0 BUN/Creatinine Ratio 32.8 H Glucose 122 H Calcium 8.3 L Total Bilirubin 2.00 H AST 32 ALT 13 Alkaline Phosphatase 138 H Total Protein 5.0 L Albumin 2.9 L Globulin 2.1 Albumin/Globulin Ratio 1.4 General: WN, WD, lying in bed. RLE: Dressing C/D/I, no erythema proximal or distal to dressing. Calf soft, 2+ DP pulse. Assessment: PO date #3 s/p right hip hemiarthroplasty with Dr. Hinojosa on 09/11/17. Plan: - Continue PT/OT - DVT prophylaxis per medicine, Lovenox - F/U in clinic 10-14 days post op - Discharge when stable by medicine
[2017-09-14] MEDS: Vitamin THERAPEUTIC TAB PO SCH (09:40)
[2017-09-14] MEDS: Docusate CAP* 100 MG PO SCH ×2 (09:40→19:52)
[2017-09-14] MEDS: Magnesium Hydroxide LIQ* 30 ML UDC PO SCH ×3 (09:41→19:53)
[2017-09-14] MEDS: Pantoprazole IV* 40 MG IV SCH (09:41)
[2017-09-14] MEDS: Pregabalin CAP(*) 25 MG PO SCH ×2 (09:41→20:05)
[2017-09-14] MEDS: Enoxaparin(*) 60 MG/0.6 ML SYR SUBCUT SCH ×2 (09:41→20:24)
[2017-09-14] MEDS: Saliva Substitute (NF) 1 SPRAY BTL MT SCH (09:42)
[2017-09-14] MEDS: DULoxetine DR CAP* 20 MG CAP.DR PO SCH (09:43)
[2017-09-14] MEDS: Morphine TAB Extended Release (*) 30 MG TAB.ER PO SCH ×2 (11:33→20:06)
[2017-09-15] MEDS: HYDROmorphone INJ* 0.5 MG/0.5 ML SYRINGE IV SLOW PU PRN (04:08)
[2017-09-15] MEDS: fentaNYL Patch Check Q Shift 1 NOTE SCH ×2 (06:42→19:09)
[2017-09-15 07:01] LABS: Hematocrit 32 % (35-47); Hemoglobin 10.1 g/dl (12.0-16.0); Mean Corpuscular HGB Conc 32 g/dl (31-36); Mean Corpuscular Hemoglobin 30 pg (27-31); Mean Corpuscular Volume 94 fL (80-97); Mean Platelet Volume 9.9 um3 (7.4-10.4); Platelet Count 251 10^3/ul (150-450); Red Cell Distribution Width 17 % (10.5-15); White Blood Count 11.7 10^3/ul (3.5-10.8)
[2017-09-15 07:19] LABS: EGFR Non-African American 94.8 (>60)
[2017-09-15] MEDS: Amiodarone TAB* 200 MG PO SCH (08:25)
[2017-09-15] MEDS: Metoprolol Tartrate TAB* 25 MG PO SCH ×2 (08:25→21:29)
[2017-09-15] MEDS: Magnesium Hydroxide LIQ* 30 ML UDC PO SCH ×2 (08:25→20:57)
--- NOTE | 2017-09-15 09:22 | PN ---
Progress Note - Progress Note Date of Service: 09/15/17 SOAP: Subjective: POD #4 Right hip hemiarthroplasty. Pt remains confused, not answering questions. Yelling for help frequently but unable to verbalize what help is needed. Objective: Vitals: Temp Pulse Resp BP Pulse Ox 96.4 F 92 20 101/56 92 09/15/17 07:58 09/15/17 07:58 09/15/17 07:58 09/15/17 07:58 09/15/17 07:58 Gen: Alert, confused laying in bed Right hip: Dressing C/D/I, jones in place. Mild edema to thigh and groin. Able to f/e at ankle and MTPs. DP 2+ Labs: Laboratory Results - last 24 hr 09/15/18 09/15/17 06:39 06:39 WBC 11.7 H RBC 3.40 L Hgb 10.1 L Hct 32 L MCV 94 MCH 30 MCHC 32 RDW 17 H Plt Count 251 MPV 9.9 Sodium 142 Potassium 3.9 Chloride 105 Carbon Dioxide 28 Anion Gap 9 BUN 20 Creatinine 0.60 Est GFR ( Amer) 114.7 Est GFR (Non-Af Amer) 94.8 BUN/Creatinine Ratio 33.3 H Glucose 110 H Calcium 8.3 L Phosphorus 1.9 L Magnesium 2.5 Total Bilirubin 1.90 H AST 33 ALT 13 Alkaline Phosphatase 127 H Total Protein 5.0 L Albumin 2.9 L Globulin 2.1 Albumin/Globulin Ratio 1.4 Assessment: POD #4 Right hip hemiarthroplasty Plan: Pt to be d/c'd back to [facility] per nurses on Sunday Cont PT/OT if able to follow commands Cont posterior hip precautions DVT ppx per medicine
[2017-09-15] MEDS: Pantoprazole IV* 40 MG IV SCH (09:54)
[2017-09-15] MEDS: DULoxetine DR CAP* 20 MG CAP.DR PO SCH (09:54)
[2017-09-15] MEDS: Enoxaparin(*) 60 MG/0.6 ML SYR SUBCUT SCH ×2 (09:54→20:57)
[2017-09-15] MEDS: Pregabalin CAP(*) 25 MG PO SCH ×2 (09:54→20:57)
[2017-09-15] MEDS: Saliva Substitute (NF) 1 SPRAY BTL MT SCH (09:55)
[2017-09-15] MEDS: Docusate CAP* 100 MG PO SCH ×2 (09:55→20:58)
[2017-09-15] MEDS: Morphine TAB Extended Release (*) 30 MG TAB.ER PO SCH ×2 (09:55→20:58)
[2017-09-15] MEDS: Vitamin THERAPEUTIC TAB PO SCH (09:55)
[2017-09-16] MEDS: fentaNYL Patch Check Q Shift 1 NOTE SCH ×2 (06:57→19:05)
[2017-09-16 08:11] LABS: Hematocrit 31 % (35-47); Mean Platelet Volume 9.7 um3 (7.4-10.4); Platelet Count 330 10^3/ul (150-450)
--- NOTE | 2017-09-16 08:18 | PN ---
Progress Note - Progress Note Date of Service: 09/16/17 SOAP: Subjective: POD #5 Right hip hemiarthroplasty. Pt seems more confused today, sleepy on exam. Objective: Vitals: Temp Pulse Resp BP Pulse Ox 97.6 F 95 16 104/54 92 09/15/17 23:33 09/15/17 23:33 09/16/17 00:51 09/15/17 23:33 09/15/17 23:33 Gen: Arousable but falling back asleep easily Right hip: Incision C/D/I with alexander. Mild ecchymosis around incision, no erythema. Edema to thigh but soft. DP 2+, not following commands to test motor function. Labs: Laboratory Results - last 24 hr 09/16/17 06:32 Hgb 10.0 L Hct 31 L Plt Count 330 MPV 9.7 Assessment: POD #5 Right hip hemiarthroplasty Plan: D/C to [facility] tomorrow PT/OT if patient able to follow commands DVT ppx per medicine F/U with Dr. Hinojosa 10-14 days
[2017-09-16] MEDS: Saliva Substitute (NF) 1 SPRAY BTL MT SCH (10:07)
[2017-09-16] MEDS: DULoxetine DR CAP* 20 MG CAP.DR PO SCH (10:10)
[2017-09-16] MEDS: Pregabalin CAP(*) 25 MG PO SCH ×2 (10:10→20:38)
[2017-09-16] MEDS: Pantoprazole IV* 40 MG IV SCH (10:10)
[2017-09-16] MEDS: Vitamin THERAPEUTIC TAB PO SCH (10:11)
[2017-09-16] MEDS: Metoprolol Tartrate TAB* 25 MG PO SCH ×2 (10:11→20:39)
[2017-09-16] MEDS: Morphine TAB Extended Release (*) 30 MG TAB.ER PO SCH ×2 (10:11→20:39)
[2017-09-16] MEDS: Amiodarone TAB* 200 MG PO SCH (10:11)
[2017-09-16] MEDS: Docusate CAP* 100 MG PO SCH ×2 (10:11→20:38)
[2017-09-16] MEDS: Magnesium Hydroxide LIQ* 30 ML UDC PO SCH ×2 (10:12→20:38)
[2017-09-16] MEDS: Enoxaparin(*) 60 MG/0.6 ML SYR SUBCUT SCH ×2 (10:33→20:37)
[2017-09-16] MEDS: oxyCODONE/Acetamin 5/325 MG* TAB PO PRN (19:07)
[2017-09-17] MEDS: oxyCODONE/Acetamin 5/325 MG* TAB PO PRN ×2 (06:37→19:12)
[2017-09-17] MEDS: fentaNYL Patch Check Q Shift 1 NOTE SCH ×2 (06:38→18:35)
[2017-09-17 07:33] LABS: Hematocrit 27 % (35-47); Hemoglobin 8.4 g/dl (12.0-16.0); Mean Corpuscular HGB Conc 31 g/dl (31-36); Mean Corpuscular Hemoglobin 30 pg (27-31); Mean Corpuscular Volume 96 fL (80-97); Mean Platelet Volume 9.5 um3 (7.4-10.4); Platelet Count 291 10^3/ul (150-450); Red Cell Distribution Width 17 % (10.5-15); White Blood Count 11.5 10^3/ul (3.5-10.8)
[2017-09-17 07:51] LABS: EGFR Non-African American 84.9 (>60)
[2017-09-17 10:05] LABS: Hematocrit for Retic CNT 27 % (35-47); RBC Retic Count 2.79 10^6/ul (4.6-6.2)
--- NOTE | 2017-09-17 10:07 | PN ---
Progress Note - Progress Note Date of Service: 09/17/17 SOAP: Subjective: POD #6 Right hip hemiarthroplasty. Patient more alert today, able to participate in exam and assist with dressing change. Possible discharge to [facility] today. VSS overnight. States feels better today. Objective: Vital Signs Temp 98.0 F 09/17/17 07:42 Pulse 94 09/17/17 07:42 Resp 16 09/17/17 09:22 BP 92/43 09/17/17 07:42 Pulse Ox 91 09/17/17 07:42 Intake & Output 09/16/17 09/17/17 09/17/17 18:59 06:59 18:59 Intake Total 1034 0 984 Balance 1034 0 984 Intake: IV Fluids 794 984 LR 794 984 Oral 240 0 Other: Estimated Void Large Small # Bowel Movements 2 0 Estimated Stool Amount Small Small # Voids 1 1 Laboratory Results - last 24 hr 09/17/17 09/17/17 06:46 06:46 WBC 11.5 H RBC 2.80 L Hgb 8.4 L Hct 27 L MCV 96 MCH 30 MCHC 31 RDW 17 H Plt Count 291 MPV 9.5 Sodium 142 Potassium 3.7 Chloride 105 Carbon Dioxide 30 Anion Gap 7 BUN 18 Creatinine 0.66 Est GFR ( Amer) 102.7 Est GFR (Non-Af Amer) 84.9 BUN/Creatinine Ratio 27.3 H Glucose 123 H Calcium 7.9 L Phosphorus 1.6 L Total Bilirubin 3.10 H AST 30 ALT 14 Alkaline Phosphatase 136 H Total Protein 4.6 L Albumin 2.7 L Globulin 1.9 L Albumin/Globulin Ratio 1.4 Gen: Alert, NAD. Right hip: Incision C/D/I with alexander. Mild ecchymosis around incision, no erythema. Edema to thigh but soft. DP 2+, +DF/PF, SITLT. Assessment: POD #5 Right hip hemiarthroplasty. Plan: D/C to [facility] today if cleared by Medicine PT/OT if patient able to follow commands DVT ppx per medicine F/U with Dr. Hinojosa 10-14 days
[2017-09-17] MEDS ORDERED: diPHENhydraMINE LIQ* 12.5 MG/5 ML UDC PO PRN (10:14)
[2017-09-17] MEDS ORDERED: Ondansetron TAB* 4 MG PO PRN (10:15)
--- NOTE | 2017-09-17 10:32 | PN ---
Progress Note - Progress Note Date of Service: 09/17/17 SOAP: Subjective: []Follow up after surgery. No pain but feels discouraged that not moving more. Plan is d/c to [facility] today. Acetaminophen (Tylenol Tab*) 650 mg PO Q4H PRN PRN Reason: FEVER/PAIN Last Admin: 09/13/17 00:32 Dose: 650 mg Al Hydrox/Mg Hydrox/Simethicone (Maalox Plus*) 30 ml PO Q6H PRN PRN Reason: INDIGESTION Albuterol (Ventolin 2.5 Mg/3 Ml Neb.Azul*) 2.5 mg INH [id number] AWAKE PRN PRN Reason: sob/wheezing Amiodarone HCl (Cordarone Tab*) 200 mg PO DAILY [facility] Last Admin: 09/16/17 10:11 Dose: 200 mg Bisacodyl (Dulcolax Supp*) 10 mg VT DAILY PRN PRN Reason: constipation Cyclobenzaprine HCl (Flexeril Tab*) 5 mg PO TID PRN PRN Reason: SPASMS Diphenhydramine HCl (Benadryl Liq*) 12.5 mg PO Q6H PRN PRN Reason: PRURITIS Docusate Sodium (Colace Cap*) 100 mg PO BID [facility] Last Admin: 09/16/17 20:38 Dose: 100 mg Duloxetine HCl (Cymbalta Cap*) 20 mg PO DAILY [facility] Last Admin: 09/16/17 10:10 Dose: 20 mg Enoxaparin Sodium (Lovenox(*)) 50 mg SUBCUT Q12HR [facility] Last Admin: 09/16/17 20:37 Dose: 50 mg Fentanyl Citrate (Fentanyl*) 25 mcg IV Q15M PRN PRN Reason: PAIN - MODERATE Last Admin: 09/12/17 07:20 Dose: 25 mcg Heparin Sodium (Porcine) (Heparin Flush Picc/Ml/Cvc(*)) 1 - 3 ml FLUSH 0600, 1800 [facility]; Protocol Last Admin: 09/17/17 04:15 Dose: Not Given Hydromorphone HCl (Dilaudid Inj*) 1 mg IV SLOW PU Q4H PRN PRN Reason: PAIN Last Admin: 09/15/17 04:08 Dose: 1 mg Lactulose (Lactulose*) 30 ml PO Q6H PRN PRN Reason: constipation Loperamide HCl (Imodium Cap*) 2 mg PO Q4H PRN PRN Reason: DIARRHEA Magnesium Hydroxide (Milk Of Magnesia Liq*) 30 ml PO BID [facility] Last Admin: 09/16/17 20:38 Dose: 30 ml Magnesium Hydroxide (Milk Of Magnesia Liq*) 30 ml PO Q6H PRN PRN Reason: constipation Metoprolol Tartrate (Lopressor Tab*) 12.5 mg PO BID [facility] Last Admin: 09/16/17 20:39 Dose: Not Given Morphine Sulfate (Ms Contin(*)) 60 mg PO Q12HR [facility] Last Admin: 09/16/17 20:39 Dose: 60 mg Multivitamins (Theragran Tab*) 1 tab PO DAILY [facility] Last Admin: 09/16/17 10:11 Dose: 1 tab Omeprazole (Prilosec Cap*) 20 mg PO BID@0730,1630 [facility] Ondansetron HCl (Zofran Tab*) 4 mg PO Q6H PRN PRN Reason: NAUSEA Oxycodone/Acetaminophen (Percocet 5/325 Tab*) 2 tab PO Q4H PRN PRN Reason: PAIN Last Admin: 09/17/17 06:37 Dose: 2 tab Oxycodone/Acetaminophen (Percocet 5/325 Tab*) 1 tab PO Q4H PRN PRN Reason: PAIN Pharmacy Profile Note (Fentanyl Patch Check Q Shift) 1 note N/A 0700,1900 [facility] Last Admin: 09/17/17 06:38 Dose: 1 note Polyvinyl Alcohol (Polyvinyl Alcohol 1.4% Opth*) 2 drop BOTH EYES DAILY PRN PRN Reason: DRY EYE Potassium Phos/Sodium Phos (Neutra Phos 250 Mg Daniel*) 250 mg PO TID [facility] Pregabalin (Lyrica Cap(*)) 25 mg PO BID [facility] Last Admin: 09/16/17 20:38 Dose: 25 mg Saliva Substitute (Biotene Moisturizing Mouth (Nf)) 2 spray [facility]; Protocol Objective: [] Vital Signs Temp Pulse Resp BP Pulse Ox 98.0 F 94 16 92/43 91 09/17/17 07:42 09/17/17 07:42 09/17/17 09:22 09/17/17 07:42 09/17/17 07:42 HEENT: Mucosa moist, no lesions. conjunctiva pale CTA ALEXUS, RRR. S1S2 Mild abd distension Edema BL, L>R good sensation strength 1/5, LLE Hgb 8.4, Adj Retic 4% Assessment: []86 year old with history of myeloma and amyloid. Has been in remission since therapy in 2016. Now s/p surgery after hip fracture. She has drop in Hgb and increased Retic Count. Ddx: acute blood loss and recover, could have overlying iron or B12 deficiency, hemolytic anemia. Plan: []1. Will review blood film and send joy, B12, iron. 2. Plan discharge today to [facility], will follow up in clinic based on above studies. 3. PT to start today.
[2017-09-17] MEDS: Morphine TAB Extended Release (*) 30 MG TAB.ER PO SCH ×2 (10:58→21:04)
[2017-09-17] MEDS: DULoxetine DR CAP* 20 MG CAP.DR PO SCH (10:58)
[2017-09-17] MEDS: Vitamin THERAPEUTIC TAB PO SCH (10:58)
[2017-09-17] MEDS: Potassium & Sodium Phos 250MG* = 1 PACKET PO SCH ×3 (10:58→21:09)
[2017-09-17] MEDS: Docusate CAP* 100 MG PO SCH ×2 (10:58→21:04)
[2017-09-17] MEDS: Pregabalin CAP(*) 25 MG PO SCH ×2 (11:00→21:04)
[2017-09-17] MEDS: Magnesium Hydroxide LIQ* 30 ML UDC PO SCH ×2 (11:00→21:13)
[2017-09-17] MEDS: Omeprazole CAP* 20 MG PO SCH ×2 (11:00→17:32)
[2017-09-17] MEDS: Enoxaparin(*) 60 MG/0.6 ML SYR SUBCUT SCH ×2 (11:01→21:02)
[2017-09-17] MEDS: Metoprolol Tartrate TAB* 25 MG PO SCH ×2 (11:04→20:56)
[2017-09-17] MEDS: Amiodarone TAB* 200 MG PO SCH ×2 (11:12→13:38)
[2017-09-17] MEDS: Pantoprazole IV* 40 MG IV SCH (11:50)
[2017-09-17] MEDS: CMC:Saliva Substitute (NF) 1 SPRAY BTL MT SCH (12:09)
[2017-09-17] MEDS: Acetaminophen TAB* 325 MG PO PRN (12:35)
[2017-09-18] MEDS: fentaNYL Patch Check Q Shift 1 NOTE SCH ×2 (06:52→19:18)
[2017-09-18 06:58] LABS: Hematocrit 24 % (35-47); Hemoglobin 7.8 g/dl (12.0-16.0); Mean Corpuscular HGB Conc 32 g/dl (31-36); Mean Corpuscular Hemoglobin 31 pg (27-31); Mean Corpuscular Volume 96 fL (80-97); Mean Platelet Volume 9.6 um3 (7.4-10.4); Platelet Count 318 10^3/ul (150-450); Red Blood Count 2.52 10^6/ul (4.00-5.40); Red Cell Distribution Width 17 % (10.5-15); White Blood Count 13.9 10^3/ul (3.5-10.8)
[2017-09-18 07:15] LABS: EGFR Non-African American 73.3 (>60)
--- NOTE | 2017-09-18 10:22 | PN ---
DATE: 09/18/2017. HOSPITAL COURSE: The patient is in need of a blood transfusion. This was discussed with her son, Giovany Robledo, on the phone, including benefits and risks to blood transfusion. He agrees. Two units packed red blood cells have been ordered. [id number]/[facility] #: [id number]
--- NOTE | 2017-09-18 10:57 | RAD ---
HISTORY: elevated bilirubin COMPARISONS: None TECHNIQUE: Multiple transverse and longitudinal ultrasound images were obtained of the right upper quadrant of the abdomen using grayscale, color Doppler, and spectral Doppler imaging. FINDINGS: LIVER: The liver is normal in shape, size, contour, and echogenicity. There are no focal parenchymal masses. There is normal hepatopedal flow of the portal vein on Doppler imaging. BILIARY TREE: There is no intrahepatic or extrahepatic biliary dilatation. The common duct measures 0.4 cm. GALLBLADDER: There is sludge within the gallbladder. There is questionable positive sonographic Poole sign. The gallbladder wall is at the upper limits of normal. There is no appreciable cholelithiasis or pericholecystic fluid. PANCREAS: The head of the pancreas is unremarkable. The tail of the pancreas is not well visualized secondary to overlying bowel gas. RIGHT KIDNEY: The right kidney is normal in shape, size, contour, and echogenicity. There is no hydronephrosis or nephrolithiasis. The right kidney measures 8.9 x 3.9 x 4.3 cm. AORTA AND IVC: The aorta and IVC are unremarkable. Normal arterial and venous waveforms are identifiable on spectral Doppler imaging. FLUID: There is a right pleural effusion. OTHER FINDINGS: None. IMPRESSION: 1. BORDERLINE GALLBLADDER WALL THICKENING WITH QUESTIONABLE POSITIVE SONOGRAPHIC POOLE SIGN. THIS IS INDETERMINATE FOR THE IMAGING FEATURES OF ACUTE CHOLECYSTITIS. 2. RIGHT PLEURAL EFFUSION
[2017-09-18] MEDS: Metoprolol Tartrate TAB* 25 MG PO SCH ×2 (11:17→22:14)
[2017-09-18] MEDS: Vitamin THERAPEUTIC TAB PO SCH (11:19)
[2017-09-18] MEDS: Docusate CAP* 100 MG PO SCH ×2 (11:19→22:13)
[2017-09-18] MEDS: DULoxetine DR CAP* 20 MG CAP.DR PO SCH (11:19)
[2017-09-18] MEDS: Amiodarone TAB* 200 MG PO SCH (11:19)
[2017-09-18] MEDS: Omeprazole CAP* 20 MG PO SCH ×2 (11:20→17:37)
[2017-09-18] MEDS: Magnesium Hydroxide LIQ* 30 ML UDC PO SCH ×3 (11:20→22:25)
[2017-09-18] MEDS: Potassium & Sodium Phos 250MG* = 1 PACKET PO SCH ×3 (11:20→22:14)
[2017-09-18] MEDS: Enoxaparin(*) 60 MG/0.6 ML SYR SUBCUT SCH ×2 (11:20→22:14)
[2017-09-18] MEDS: CMC:Saliva Substitute (NF) 1 SPRAY BTL MT SCH (11:21)
--- NOTE | 2017-09-18 11:22 | RAD ---
HISTORY: rales right lung COMPARISONS: September 12, 2017 VIEWS: 2: Frontal and lateral views of the chest. FINDINGS: CARDIOMEDIASTINAL SILHOUETTE: The cardiomediastinal silhouette is normal. RODOLFO: The rodolfo are normal. PLEURA: There are moderate bilateral pleural effusions, increased in size from the previous examination. LUNG PARENCHYMA: There is opacification of the lung bases bilaterally. There is hyperinflation. ABDOMEN: The upper abdomen is clear. There is no subphrenic gas. BONES AND SOFT TISSUES: There is diffuse osteopenia. There are chronic appearing compression deformities of the midthoracic spine. OTHER: None. IMPRESSION: MODERATE BILATERAL PLEURAL EFFUSIONS, PROGRESSED FROM THE PREVIOUS EXAMINATION, WITH ASSOCIATED BIBASILAR COMPRESSIVE ATELECTASIS.
[2017-09-18] MEDS: Morphine TAB Extended Release (*) 30 MG TAB.ER PO SCH ×2 (11:45→22:12)
[2017-09-18] MEDS: Pregabalin CAP(*) 25 MG PO SCH ×2 (11:45→22:13)
--- NOTE | 2017-09-18 18:22 | PN ---
Progress Note - Progress Note Date of Service: 09/18/17 SOAP: Subjective: Spoke with Dr. Beckwith this morning. PRBC 2 u transfused today. Up to chair with PT today but Demetria to return to bed. Patient seemed eager to argue with me about her drink tray position. Objective: Eyes wide open, answered some questions appropriately. Abd S, possible distention mild, non-tender LLE: - Dressing has spotting on it - Swelling in thigh with some bruising lateral proximal thigh - NVID - Complains with PROM, but tolerates 0-50 flexion without resistance Selected Entries 09/18/17 17:55 Temperature 98.7 F Pulse Rate 80 Respiratory 16 Rate Blood Pressure 97/64 (mmHg) O2 Sat by Pulse 100 Oximetry Laboratory Tests 09/14/17 09/15/17 09/16/17 06:31 06:39 06:32 WBC 11.7 H Hct 34 L 32 L 31 L 09/17/17 09/18/17 06:46 06:38 WBC 11.5 H 13.9 H Hct 27 L 24 L Assessment: POD 7 R hip hemiarthroplasty Plan: - Anticoag per medicine - Patient has some clear bleeding in RLE per exam. Surprising given very minimal intraop bleeding. May be secondary to anticoagulant use. - Medicine following H/H, transfusing prn - No additional intervention for low H/H. - Dispo planning when medically stable. - Follow up with me in the office in approximately 2 weeks - PT - Dressing change once daily by nursing. Use FOAM TAPE not paper tape.
[2017-09-19 05:57] LABS: Hematocrit 32 % (35-47); Hemoglobin 10.7 g/dl (12.0-16.0); Mean Corpuscular HGB Conc 33 g/dl (31-36); Mean Corpuscular Hemoglobin 30 pg (27-31); Mean Corpuscular Volume 92 fL (80-97); Mean Platelet Volume 9.7 um3 (7.4-10.4); Platelet Count 274 10^3/ul (150-450); Red Blood Count 3.51 10^6/ul (4.00-5.40); Red Cell Distribution Width 17 % (10.5-15); White Blood Count 17.6 10^3/ul (3.5-10.8)
[2017-09-19 06:24] LABS: EGFR Non-African American 60.9 (>60)
[2017-09-19] MEDS: fentaNYL Patch Check Q Shift 1 NOTE SCH ×2 (07:56→18:36)
--- NOTE | 2017-09-19 09:55 | PN ---
Progress Note - Progress Note Date of Service: 09/19/17 SOAP: Subjective: []Feels awful. Not eating much. Has hip pain. Not moving. Weak. No fevers. Acetaminophen (Tylenol Tab*) 650 mg PO Q4H PRN PRN Reason: FEVER/PAIN Last Admin: 09/17/17 12:35 Dose: 650 mg Al Hydrox/Mg Hydrox/Simethicone (Maalox Plus*) 30 ml PO Q6H PRN PRN Reason: INDIGESTION Albuterol (Ventolin 2.5 Mg/3 Ml Neb.Azul*) 2.5 mg INH [id number] AWAKE PRN PRN Reason: sob/wheezing Amiodarone HCl (Cordarone Tab*) 200 mg PO DAILY [facility] Last Admin: 09/18/17 11:19 Dose: 200 mg Bisacodyl (Dulcolax Supp*) 10 mg LA DAILY PRN PRN Reason: constipation Cyclobenzaprine HCl (Flexeril Tab*) 5 mg PO TID PRN PRN Reason: SPASMS Diphenhydramine HCl (Benadryl Liq*) 12.5 mg PO Q6H PRN PRN Reason: PRURITIS Docusate Sodium (Colace Cap*) 100 mg PO BID [facility] Last Admin: 09/18/17 22:13 Dose: 100 mg Duloxetine HCl (Cymbalta Cap*) 20 mg PO DAILY [facility] Last Admin: 09/18/17 11:19 Dose: 20 mg Enoxaparin Sodium (Lovenox(*)) 50 mg SUBCUT Q12HR [facility] Last Admin: 09/18/17 22:14 Dose: 50 mg Heparin Sodium (Porcine) (Heparin Flush Picc/Ml/Cvc(*)) 1 - 3 ml FLUSH 0600, 1800 [facility]; Protocol Last Admin: 09/19/17 07:38 Dose: Not Given Hydromorphone HCl (Dilaudid Inj*) 1 mg IV SLOW PU Q4H PRN PRN Reason: PAIN Last Admin: 09/15/17 04:08 Dose: 1 mg Lactulose (Lactulose*) 30 ml PO Q6H PRN PRN Reason: constipation Loperamide HCl (Imodium Cap*) 2 mg PO Q4H PRN PRN Reason: DIARRHEA Magnesium Hydroxide (Milk Of Magnesia Liq*) 30 ml PO BID [facility] Last Admin: 09/18/17 22:25 Dose: 30 ml Magnesium Hydroxide (Milk Of Magnesia Liq*) 30 ml PO Q6H PRN PRN Reason: constipation Metoprolol Tartrate (Lopressor Tab*) 12.5 mg PO BID [facility] Last Admin: 09/18/17 22:14 Dose: 12.5 mg Morphine Sulfate (Ms Contin(*)) 60 mg PO Q12HR [facility] Last Admin: 09/18/17 22:12 Dose: 60 mg Multivitamins (Theragran Tab*) 1 tab PO DAILY [facility] Last Admin: 09/18/17 11:19 Dose: 1 tab Omeprazole (Prilosec Cap*) 20 mg PO BID@0730,1630 [facility] Last Admin: 09/18/17 17:37 Dose: 20 mg Ondansetron HCl (Zofran Tab*) 4 mg PO Q6H PRN PRN Reason: NAUSEA Pharmacy Profile Note (Fentanyl Patch Check Q Shift) 1 note N/A 0700,1900 [facility] Last Admin: 09/19/17 07:56 Dose: 1 note Polyvinyl Alcohol (Polyvinyl Alcohol 1.4% Opth*) 2 drop BOTH EYES DAILY PRN PRN Reason: DRY EYE Potassium Phos/Sodium Phos (Neutra Phos 250 Mg Daniel*) 250 mg PO TID [facility] Last Admin: 09/18/17 22:14 Dose: 250 mg Pregabalin (Lyrica Cap(*)) 25 mg PO BID [facility] Last Admin: 09/18/17 22:13 Dose: 25 mg Saliva Substitute (Biotene Moisturizing Mouth (Nf)) 2 spray [facility]; Protocol Last Admin: 09/18/17 11:21 Dose: 2 spray Objective: [] Vital Signs Temp Pulse Resp BP Pulse Ox 97.7 F 79 20 97/59 97 09/19/17 07:20 09/19/17 07:20 09/19/17 07:20 09/19/17 07:20 09/19/17 07:20 HEENT: Mucosa moist, no lesions. conjunctiva pale. Jaundice. CTA ALEXUS, RRR. S1S2 Mild abd distension, no tender, no Poole's Edema BL, L>R good sensation strength 1/5, LLE US RUQ - no ductal dilation. Assessment: []86 year old with history of myeloma and amyloid. Has been in remission since therapy in 2016. Now s/p surgery after hip fracture. Has been doing poorly since surgery. She has leukocytosis, high production anemia and increased total bilirubin, Fish negative. Ddx: acute blood loss and recover, hemolytic anemia with or without liver failure post anesthesia, UTI. Plan: []1. Liver disease. Send ammonia level, direct and indirect bili. 2. Will check blood film again today for DIC, check DIC panel 3. Send UA, straight cath if needed. 4. Follow CBC post transfusion.
[2017-09-19] MEDS: Magnesium Hydroxide LIQ* 30 ML UDC PO SCH ×3 (10:21→21:30)
[2017-09-19] MEDS: CMC:Saliva Substitute (NF) 1 SPRAY BTL MT SCH (10:22)
[2017-09-19] MEDS: Enoxaparin(*) 60 MG/0.6 ML SYR SUBCUT SCH ×2 (10:22→21:20)
[2017-09-19] MEDS: Morphine TAB Extended Release (*) 30 MG TAB.ER PO SCH ×2 (10:23→21:22)
[2017-09-19] MEDS: Docusate CAP* 100 MG PO SCH ×2 (10:23→21:23)
[2017-09-19] MEDS: Omeprazole CAP* 20 MG PO SCH ×2 (10:26→18:32)
[2017-09-19] MEDS: Potassium & Sodium Phos 250MG* = 1 PACKET PO SCH ×4 (10:26→21:30)
[2017-09-19] MEDS: DULoxetine DR CAP* 20 MG CAP.DR PO SCH (10:26)
[2017-09-19] MEDS: Vitamin THERAPEUTIC TAB PO SCH (10:26)
[2017-09-19] MEDS: Pregabalin CAP(*) 25 MG PO SCH ×2 (10:26→21:21)
[2017-09-19] MEDS: Metoprolol Tartrate TAB* 25 MG PO SCH ×2 (10:27→21:21)
[2017-09-19] MEDS: Amiodarone TAB* 200 MG PO SCH (10:35)
[2017-09-19 11:08] LABS: Platelet Count 296 10^3/ul (150-450)
[2017-09-19 11:33] LABS: INR 1.21 (0.77-1.02)
--- NOTE | 2017-09-19 11:37 | PN ---
Progress Note - Progress Note Date of Service: 09/19/17 SOAP: Subjective: POD #8 Right hip hemiarthroplasty. Patient alert but quickly loses focus. VSS overnight. Denies calf pain. Does not answer about chest pain, SOB, nausea. Had 2 units PRBC yesterday. Objective: Vital Signs Temp 97.7 F 09/19/17 07:20 Pulse 79 09/19/17 07:20 Resp 16 09/19/17 10:26 BP 97/59 09/19/17 07:20 Pulse Ox 97 09/19/17 07:20 Intake & Output 09/18/17 09/19/17 09/19/17 18:59 06:59 18:59 Intake Total 500 660 Balance 500 660 Weight 137 lb 11.2 oz Intake: Oral 500 660 Other: Estimated Void Small Date of Last Bowel 09/16/17 Movement # Bowel Movements 0 # Voids 0 1 Laboratory Results - last 24 hr 09/17/17 09/19/17 09/19/17 06:46 05:36 05:36 WBC 17.6 H RBC 3.51 L Hgb 10.7 L Hct 32 L MCV 92 MCH 30 MCHC 33 RDW 17 H Plt Count 274 MPV 9.7 Sodium 138 Potassium 4.9 Chloride 102 Carbon Dioxide 31 Anion Gap 5 BUN 23 Creatinine 0.88 Est GFR ( Amer) 73.7 Est GFR (Non-Af Amer) 60.9 BUN/Creatinine Ratio 26.1 H Glucose 127 H Calcium 7.8 L Total Bilirubin 4.80 H D AST 29 ALT 14 Alkaline Phosphatase 127 H Ammonia C-Reactive Protein 80.11 H Total Protein 4.9 L Albumin 2.9 L Globulin 2.0 Albumin/Globulin Ratio 1.5 Blood Type A Positive Antibody Screen Negative Direct Antiglob Test Negative Crossmatch See Detail 09/19/17 09/19/17 10:53 10:54 WBC RBC Hgb Hct MCV MCH MCHC RDW Plt Count 296 MPV Sodium Potassium Chloride Carbon Dioxide Anion Gap BUN Creatinine Est GFR ( Amer) Est GFR (Non-Af Amer) BUN/Creatinine Ratio Glucose Calcium Total Bilirubin AST ALT Alkaline Phosphatase Ammonia 32 C-Reactive Protein Total Protein Albumin Globulin Albumin/Globulin Ratio Blood Type Antibody Screen Direct Antiglob Test Crossmatch Gen: Alert, NAD. Right hip: Dressing C/D/I with alexander. Mild ecchymosis and edema around dressing. No erythema. Thigh and calf soft. DP 2+, +DF, not able to follow commands for PF. SITLT. Assessment: POD #8 Right hip hemiarthroplasty with Dr. Hinojosa. Plan: - Anticoag per medicine - D/C when medically stable - Follow up with Dr. Hinojosa in the office in 2 weeks - PT as able - Dressing change once daily by nursing. Use FOAM TAPE not paper tape.
[2017-09-19] MEDS: Acetaminophen TAB* 325 MG PO PRN (11:48)
[2017-09-19 11:51] LABS: Schistocytes PRESENT
[2017-09-19] MEDS ORDERED: Furosemide IV* 10 MG/ML VIAL (40 MG) IV ONE (12:00)
[2017-09-19 12:48] LABS: Urine Appearance Clear; Urine Blood Negative (Negative); Urine Color Amber; Urine Ketones Trace (Negative); Urine Protein 2+(100 mg/dL) (Negative); Urine Red Blood Cell Absent (Absent); Urine Specific Gravity 1.019 (1.010-1.030); Urine Urobilinogen Negative (Negative); Urine White Blood Cell Trace(0-5/hpf) (Absent)
[2017-09-19] MEDS: Spironolactone TAB* 25 MG PO SCH ×2 (13:50→21:23)
[2017-09-19] MEDS: HYDROmorphone INJ* 0.5 MG/0.5 ML SYRINGE IV SLOW PU PRN (23:19)
[2017-09-20] MEDS: HYDROmorphone INJ* 0.5 MG/0.5 ML SYRINGE IV SLOW PU PRN ×3 (05:50→15:47)
[2017-09-20 06:55] LABS: Hematocrit 25 % (35-47); Hemoglobin 8.2 g/dl (12.0-16.0); Mean Corpuscular HGB Conc 33 g/dl (31-36); Mean Corpuscular Hemoglobin 31 pg (27-31); Mean Corpuscular Volume 95 fL (80-97); Mean Platelet Volume 10.1 um3 (7.4-10.4); Platelet Count 256 10^3/ul (150-450); Red Blood Count 2.64 10^6/ul (4.00-5.40); Red Cell Distribution Width 18 % (10.5-15); White Blood Count 18.3 10^3/ul (3.5-10.8)
[2017-09-20 07:11] LABS: EGFR Non-African American 48.6 (>60)
[2017-09-20] MEDS: fentaNYL Patch Check Q Shift 1 NOTE SCH ×2 (07:18→19:38)
[2017-09-20 07:40] LABS: ABS Basophils 0 10^3/ul (0-0.2); ABS Eosinophils 0.1 10^3/ul (0-0.6); ABS Lymphocytes 1.7 10^3/ul (1.0-4.8); ABS Monocytes 1.1 10^3/ul (0-0.8); ABS Neutrophils 15.4 10^3/ul (1.5-7.7)
[2017-09-20 07:44] LABS: ABS Basophils 0 10^3/ul (0-0.2); ABS Neutrophils 15.6 10^3/ul (1.5-7.7); Monocytes % 7 % (0-7)
--- NOTE | 2017-09-20 09:12 | PN ---
Progress Note - Progress Note Date of Service: 09/20/17 SOAP: Subjective: []Sleeping when I went in. Awoke and was oriented. Still feels poorly but was non specific. Has pain, not hungry. Acetaminophen (Tylenol Tab*) 650 mg PO Q4H PRN PRN Reason: FEVER/PAIN Last Admin: 09/19/17 11:48 Dose: 650 mg Al Hydrox/Mg Hydrox/Simethicone (Maalox Plus*) 30 ml PO Q6H PRN PRN Reason: INDIGESTION Albuterol (Ventolin 2.5 Mg/3 Ml Neb.Azul*) 2.5 mg INH [id number] AWAKE PRN PRN Reason: sob/wheezing Bisacodyl (Dulcolax Supp*) 10 mg MI DAILY PRN PRN Reason: constipation Cyclobenzaprine HCl (Flexeril Tab*) 5 mg PO TID PRN PRN Reason: SPASMS Last Admin: 09/19/17 11:49 Dose: 5 mg Diphenhydramine HCl (Benadryl Liq*) 12.5 mg PO Q6H PRN PRN Reason: PRURITIS Docusate Sodium (Colace Cap*) 100 mg PO BID [facility] Last Admin: 09/19/17 21:23 Dose: 100 mg Duloxetine HCl (Cymbalta Cap*) 20 mg PO DAILY [facility] Last Admin: 09/19/17 10:26 Dose: 20 mg Furosemide (Lasix Tab*) 120 mg PO DAILY [facility] Heparin Sodium (Porcine) (Heparin Flush Picc/Ml/Cvc(*)) 1 - 3 ml FLUSH 0600, 1800 [facility]; Protocol Last Admin: 09/20/17 06:04 Dose: Not Given Hydromorphone HCl (Dilaudid Inj*) 1 mg IV SLOW PU Q4H PRN PRN Reason: PAIN Last Admin: 09/20/17 05:50 Dose: 1 mg Lactulose (Lactulose*) 30 ml PO Q6H PRN PRN Reason: constipation Loperamide HCl (Imodium Cap*) 2 mg PO Q4H PRN PRN Reason: DIARRHEA Magnesium Hydroxide (Milk Of Magnesia Liq*) 30 ml PO BID [facility] Last Admin: 09/19/17 21:30 Dose: Not Given Magnesium Hydroxide (Milk Of Magnesia Liq*) 30 ml PO Q6H PRN PRN Reason: constipation Metoprolol Tartrate (Lopressor Tab*) 12.5 mg PO BID [facility] Last Admin: 09/19/17 21:21 Dose: 12.5 mg Morphine Sulfate (Ms Contin(*)) 60 mg PO Q12HR [facility] Last Admin: 09/19/17 21:22 Dose: 60 mg Multivitamins (Theragran Tab*) 1 tab PO DAILY [facility] Last Admin: 09/19/17 10:26 Dose: 1 tab Omeprazole (Prilosec Cap*) 20 mg PO BID@0730,1630 [facility] Last Admin: 09/19/17 18:32 Dose: 20 mg Ondansetron HCl (Zofran Tab*) 4 mg PO Q6H PRN PRN Reason: NAUSEA Pharmacy Profile Note (Fentanyl Patch Check Q Shift) 1 note N/A 0700,1900 [facility] Last Admin: 09/20/17 07:18 Dose: 1 note Polyvinyl Alcohol (Polyvinyl Alcohol 1.4% Opth*) 2 drop BOTH EYES DAILY PRN PRN Reason: DRY EYE Potassium Phos/Sodium Phos (Neutra Phos 250 Mg Daniel*) 250 mg PO TID [facility] Last Admin: 09/19/17 21:30 Dose: Not Given Pregabalin (Lyrica Cap(*)) 25 mg PO BID [facility] Last Admin: 09/19/17 21:21 Dose: 25 mg Saliva Substitute (Biotene Moisturizing Mouth (Nf)) 2 spray MT QAM [facility]; Protocol Last Admin: 09/19/17 10:22 Dose: 2 spray Spironolactone (Aldactone Tab*) 25 mg PO BID [facility] Last Admin: 09/19/17 21:23 Dose: 25 mg Objective: [] Vital Signs Temp Pulse Resp BP Pulse Ox 97.0 F 83 20 85/48 95 09/20/17 07:23 09/20/17 07:23 09/20/17 07:52 09/20/17 07:23 09/20/17 08:59 Ill appearing HEENT: Mucosa moist, no lesions. conjunctiva pale. Jaundice. CTA ALEXUS, RRR. S1S2 Mild abd distension, no tender, no Poole's Edema Edema right leg through hip, did not turn her but on dorsal and lateral surface no clear hematoma good sensation strength 1/5, LLE PTT 51 Cr 1.07 Direct and indirect even split Total bili 4.5, stable Hgb 8.2 Assessment: []86 year old with history of myeloma and amyloid. Has been in remission since therapy in 2016. Now s/p surgery after hip fracture. Has been doing poorly since surgery. Looks awful today. She has further drop in Hgb. I suspect renal insufficiency causing supra-theraputic Lovenox level and bleeding into hip. 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 Plan: []1. Stop Lovenox, and send Heparin Xa Level 2. Tx 1 U PRBC 3. Consider Comfort care if does not improve 4. CT Pelvis.
--- NOTE | 2017-09-20 10:35 | RAD ---
HISTORY: bleeding, hip pain COMPARISONS: September 06, 2017 TECHNIQUE: Multiple contiguous axial CT images are obtained of the pelvis, with coronal and sagittal multiplanar reconstructions, without intravenous contrast administration. FINDINGS: Evaluation is limited by streak artifact from a right hip prosthesis. BONE DENSITY: There is diffuse osteopenia. BONES: The patient is status post right hip arthroplasty. There is no hardware failure or osteolysis. JOINTS: The patient is status post right hip arthroplasty. 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 MUSCULATURE: There is a large intramuscular hematoma of the right gluteal musculature measuring approximately 12.7 x 4.6 cm transversely. There is also intramuscular hematoma within the quadriceps muscles along the anterior thigh. ALIGNMENT: There is no dislocation. SOFT TISSUES: There is atherosclerosis of the aorta. There is extensive soft tissue edema. OTHER FINDINGS: None. IMPRESSION: 1. STATUS POST RIGHT HIP ARTHROPLASTY. THERE ARE LARGE INTRAMUSCULAR HEMATOMAS OF THE GLUTEAL MUSCULATURE AND QUADRICEPS MUSCULATURE ON THE RIGHT. 2. SOFT TISSUE EDEMA. 3. OSTEOPENIA. 4. OSTEOARTHRITIS. 5. ATHEROSCLEROSIS.
[2017-09-20] MEDS: Magnesium Hydroxide LIQ* 30 ML UDC PO SCH ×2 (10:37→22:44)
[2017-09-20] MEDS: Omeprazole CAP* 20 MG PO SCH ×2 (10:37→16:13)
[2017-09-20] MEDS: Furosemide TAB* 40 MG PO SCH (10:37)
[2017-09-20] MEDS: Pregabalin CAP(*) 25 MG PO SCH ×2 (10:37→22:59)
[2017-09-20] MEDS: Potassium & Sodium Phos 250MG* = 1 PACKET PO SCH ×2 (10:38→13:03)
[2017-09-20] MEDS: Docusate CAP* 100 MG PO SCH ×2 (10:38→22:44)
[2017-09-20] MEDS: Morphine TAB Extended Release (*) 30 MG TAB.ER PO SCH ×2 (10:38→22:59)
[2017-09-20] MEDS: Metoprolol Tartrate TAB* 25 MG PO SCH ×2 (10:38→22:59)
[2017-09-20] MEDS: DULoxetine DR CAP* 20 MG CAP.DR PO SCH (10:38)
[2017-09-20] MEDS: Spironolactone TAB* 25 MG PO SCH ×2 (10:38→22:44)
[2017-09-20] MEDS: Vitamin THERAPEUTIC TAB PO SCH (10:38)
[2017-09-20] MEDS: CMC:Saliva Substitute (NF) 1 SPRAY BTL MT SCH (10:48)
[2017-09-21] MEDS: HYDROmorphone INJ* 0.5 MG/0.5 ML SYRINGE IV SLOW PU PRN ×2 (02:21→04:32)
[2017-09-21 06:14] LABS: Hematocrit 26 % (35-47); Hemoglobin 8.7 g/dl (12.0-16.0); Mean Corpuscular HGB Conc 33 g/dl (31-36); Mean Corpuscular Hemoglobin 32 pg (27-31); Mean Corpuscular Volume 96 fL (80-97); Platelet Count 225 10^3/ul (150-450); Red Blood Count 2.72 10^6/ul (4.00-5.40); Red Cell Distribution Width 16 % (10.5-15); White Blood Count 17.6 10^3/ul (3.5-10.8)
[2017-09-21 06:16] LABS: INR 1.16 (0.77-1.02)
[2017-09-21 06:31] LABS: EGFR Non-African American 43.9 (>60)
[2017-09-21] MEDS: fentaNYL Patch Check Q Shift 1 NOTE SCH ×2 (07:43→19:55)
[2017-09-21] MEDS: Morphine TAB Extended Release (*) 30 MG TAB.ER PO SCH ×2 (07:59→21:02)
[2017-09-21] MEDS: Furosemide TAB* 40 MG PO SCH (08:01)
[2017-09-21] MEDS: Spironolactone TAB* 25 MG PO SCH ×2 (08:02→21:03)
[2017-09-21] MEDS: Docusate CAP* 100 MG PO SCH ×2 (08:03→21:10)
[2017-09-21] MEDS: Magnesium Hydroxide LIQ* 30 ML UDC PO SCH ×2 (08:04→21:09)
[2017-09-21] MEDS: Pregabalin CAP(*) 25 MG PO SCH ×2 (08:06→21:05)
[2017-09-21] MEDS: Omeprazole CAP* 20 MG PO SCH ×2 (08:06→15:24)
[2017-09-21] MEDS: Vitamin THERAPEUTIC TAB PO SCH (08:06)
[2017-09-21] MEDS: Metoprolol Tartrate TAB* 25 MG PO SCH ×2 (08:06→21:04)
--- NOTE | 2017-09-21 08:57 | RAD ---
HISTORY: Verify position of hardware COMPARISONS: September 12, 2017, September 20, 2017 VIEWS: 1, Single frontal view of the pelvis FINDINGS: BONE DENSITY: Normal. BONES: The patient is status post right hip arthroplasty. There is no hardware failure or osteolysis. JOINTS: The patient is status post right hip arthroplasty. 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 ALIGNMENT: The hardware is in near anatomic position on the single frontal projection. SOFT TISSUES: Unremarkable. OTHER FINDINGS: None. IMPRESSION: STATUS POST RIGHT HIP ARTHROPLASTY
[2017-09-21] MEDS: Amiodarone TAB* 200 MG PO SCH (09:07)
--- NOTE | 2017-09-21 09:20 | PN ---
Progress Note - Progress Note Date of Service: 09/21/17 SOAP: Subjective: POD #[address] CT yesterday showed 3 large hematomas in right thigh. She is seen resting in a chair, when awaken she asks for help. Not able to answer questions about pain, location, or participate with exam. 1 unit PRBC yesterday. Objective: Vital Signs Temp 98.3 F 09/21/17 07:11 Pulse 92 09/21/17 07:11 Resp 16 09/21/17 08:06 BP 89/41 09/21/17 07:11 Pulse Ox 93 09/21/17 07:11 Intake & Output 09/20/17 09/21/17 09/21/17 18:59 06:59 18:59 Intake Total 2 0 Output Total 0 Balance 2 0 Weight 131 lb Intake: Oral 2 0 Output: Urine 0 Other: Estimated Void Small Date of Last Bowel unknown Movement # Bowel Movements 0 0 # Voids 0 Laboratory Results - last 24 hr 09/19/17 09/20/17 09/20/17 10:53 06:32 06:32 WBC RBC Hgb Hct MCV MCH MCHC RDW Plt Count MPV INR (Anticoag Therapy) Coag Pathologist Com Sodium Potassium Chloride Carbon Dioxide Anion Gap BUN Creatinine Est GFR ( Amer) Est GFR (Non-Af Amer) BUN/Creatinine Ratio Glucose Calcium Total Bilirubin AST ALT Alkaline Phosphatase C-Reactive Protein B-Natriuretic Peptide Total Protein Albumin Globulin Albumin/Globulin Ratio Procalcitonin 0.2 Blood Type A Positive Antibody Screen Negative Crossmatch See Detail 09/21/17 09/21/17 09/21/17 05:58 05:58 05:58 WBC 17.6 H RBC 2.72 L Hgb 8.7 L Hct 26 L MCV 96 MCH 32 H MCHC 33 RDW 16 H Plt Count 225 MPV 10.0 INR (Anticoag Therapy) 1.16 H Coag Pathologist Com Sodium 139 Potassium 5.1 H Chloride 102 Carbon Dioxide 31 Anion Gap 6 BUN 34 H Creatinine 1.17 H Est GFR ( Amer) 53.1 Est GFR (Non-Af Amer) 43.9 BUN/Creatinine Ratio 29.1 H Glucose 119 H Calcium 7.6 L Total Bilirubin 5.30 H AST 32 ALT 13 Alkaline Phosphatase 110 H C-Reactive Protein 126.30 H B-Natriuretic Peptide Total Protein 4.6 L Albumin 2.8 L Globulin 1.8 L Albumin/Globulin Ratio 1.6 Procalcitonin Blood Type Antibody Screen Crossmatch 09/21/17 05:58 WBC RBC Hgb Hct MCV MCH MCHC RDW Plt Count MPV INR (Anticoag Therapy) Coag Pathologist Com Sodium Potassium Chloride Carbon Dioxide Anion Gap BUN Creatinine Est GFR ( Amer) Est GFR (Non-Af Amer) BUN/Creatinine Ratio Glucose Calcium Total Bilirubin AST ALT Alkaline Phosphatase C-Reactive Protein B-Natriuretic Peptide 1650 H Total Protein Albumin Globulin Albumin/Globulin Ratio Procalcitonin Blood Type Antibody Screen Crossmatch General: NAD, sitting comfortably in chair. RLE: Dressing C/D/I, no erythema, warmth proximal or distal to dressing. Ecchymosis noted at lateral thigh. Palpable DP pulse. BLE: calf soft, non-tender, thigh with edema, no tenderness. Assessment: POD #10 Right hip hemiarthroplasty. Plan: - Anticoag held per intramuscular hematoma per hematology - D/C when medically stable - Follow up with Dr. Hinojosa in the office 2 weeks s/p surgery, if still in house, staple removal at that time. - PT as able - Dressing change once daily by nursing. Use FOAM TAPE not paper tape.
--- NOTE | 2017-09-21 10:45 | PN ---
Progress Note - Progress Note Date of Service: 09/21/17 SOAP: Subjective: []Better today, more awake. Reports pain this am. Had eggs for breakfast. Still not responding to questions as she did pre-operatively. No fevers. Acetaminophen (Tylenol Tab*) 650 mg PO Q4H PRN PRN Reason: FEVER/PAIN Last Admin: 09/19/17 11:48 Dose: 650 mg Al Hydrox/Mg Hydrox/Simethicone (Maalox Plus*) 30 ml PO Q6H PRN PRN Reason: INDIGESTION Albuterol (Ventolin 2.5 Mg/3 Ml Neb.Azul*) 2.5 mg INH [id number] AWAKE PRN PRN Reason: sob/wheezing Bisacodyl (Dulcolax Supp*) 10 mg MI DAILY PRN PRN Reason: constipation Cyclobenzaprine HCl (Flexeril Tab*) 5 mg PO TID PRN PRN Reason: SPASMS Last Admin: 09/19/17 11:49 Dose: 5 mg Diphenhydramine HCl (Benadryl Liq*) 12.5 mg PO Q6H PRN PRN Reason: PRURITIS Docusate Sodium (Colace Cap*) 100 mg PO BID [facility] Last Admin: 09/21/17 08:03 Dose: 100 mg Duloxetine HCl (Cymbalta Cap*) 20 mg PO DAILY [facility] Last Admin: 09/20/17 10:38 Dose: 20 mg Furosemide (Lasix Tab*) 120 mg PO DAILY [facility] Last Admin: 09/21/17 08:01 Dose: 120 mg Heparin Sodium (Porcine) (Heparin Flush Picc/Ml/Cvc(*)) 1 - 3 ml FLUSH 0600, 1800 [facility]; Protocol Last Admin: 09/21/17 05:07 Dose: Not Given Hydromorphone HCl (Dilaudid Inj*) 1 mg IV SLOW PU Q2H PRN PRN Reason: PAIN Last Admin: 09/21/17 04:32 Dose: 1 mg Lactulose (Lactulose*) 30 ml PO Q6H PRN PRN Reason: constipation Loperamide HCl (Imodium Cap*) 2 mg PO Q4H PRN PRN Reason: DIARRHEA Magnesium Hydroxide (Milk Of Magnesia Liq*) 30 ml PO BID [facility] Last Admin: 07/06/18 08:04 Dose: 30 ml Magnesium Hydroxide (Milk Of Magnesia Liq*) 30 ml PO Q6H PRN PRN Reason: constipation Metoprolol Tartrate (Lopressor Tab*) 12.5 mg PO BID [facility] Last Admin: 09/21/17 08:06 Dose: Not Given Morphine Sulfate (Ms Contin(*)) 60 mg PO Q12HR [facility] Last Admin: 09/21/17 07:59 Dose: 60 mg Multivitamins (Theragran Tab*) 1 tab PO DAILY [facility] Last Admin: 09/21/17 08:06 Dose: 1 tab Omeprazole (Prilosec Cap*) 20 mg PO BID@0730,1630 [facility] Last Admin: 09/21/17 08:06 Dose: 20 mg Ondansetron HCl (Zofran Tab*) 4 mg PO Q6H PRN PRN Reason: NAUSEA Pharmacy Profile Note (Fentanyl Patch Check Q Shift) 1 note N/A 0700,1900 [facility] Last Admin: 09/21/17 07:43 Dose: 1 note Polyvinyl Alcohol (Polyvinyl Alcohol 1.4% Opth*) 2 drop BOTH EYES DAILY PRN PRN Reason: DRY EYE Pregabalin (Lyrica Cap(*)) 25 mg PO BID [facility] Last Admin: 09/21/17 08:06 Dose: 25 mg Saliva Substitute (Biotene Moisturizing Mouth (Nf)) 2 spray [facility]; Protocol Last Admin: 09/20/17 10:48 Dose: Not Given Spironolactone (Aldactone Tab*) 25 mg PO BID [facility] Last Admin: 09/21/17 08:02 Dose: 25 mg Objective: [] Vital Signs Temp Pulse Resp BP Pulse Ox 98.3 F 92 16 89/41 93 09/21/17 07:11 09/21/17 07:11 09/21/17 10:40 09/21/17 07:11 09/21/17 07:11 Better, still weak. HEENT: Mucosa moist, no lesions. conjunctiva pale. Jaundice. CTA ALEXUS, RRR. S1S2 Mild abd distension, no tender, no Poole's Edema Edema right leg through hip, did not turn her but on dorsal and lateral surface no clear hematoma good sensation strength 1/5, LLE. No change from yesterday PTT pending, prior 51 Cr 1.17 Direct and indirect even split Total bili 5.3 Hgb 8.[address] + intramuscular hematoma Assessment: []86 year old with history of myeloma and amyloid. Has been in remission since therapy in 2016. Now s/p surgery after hip fracture. Has been doing poorly since surgery. CT shows intramuscular hematoma likely second to renal insufficiency causing supra-theraputic Lovenox level. Lovenox stopped and looks a little better today. 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 Plan: []1. Follow off Lovenox. 2. Tx Hgb <8.0, I hope will stabilize 3. She is working with PT and eating a little more. At this time has not transferred to comfort care but will be only options if deteriorates further.
[2017-09-21] MEDS: CMC:Saliva Substitute (NF) 1 SPRAY BTL MT SCH (11:16)
[2017-09-21] MEDS: DULoxetine DR CAP* 20 MG CAP.DR PO SCH (11:16)
[2017-09-22] MEDS: fentaNYL Patch Check Q Shift 1 NOTE SCH ×2 (07:16→19:34)
[2017-09-22 08:14] LABS: Hematocrit 27 % (35-47); Hemoglobin 8.9 g/dl (12.0-16.0); Mean Corpuscular HGB Conc 33 g/dl (31-36); Mean Corpuscular Hemoglobin 33 pg (27-31); Mean Corpuscular Volume 99 fL (80-97); Mean Platelet Volume 10.5 um3 (7.4-10.4); Platelet Count 228 10^3/ul (150-450); Red Blood Count 2.73 10^6/ul (4.00-5.40); Red Cell Distribution Width 16 % (10.5-15); White Blood Count 11.9 10^3/ul (3.5-10.8)
[2017-09-22] MEDS: Vitamin THERAPEUTIC TAB PO SCH (08:28)
[2017-09-22] MEDS: Metoprolol Tartrate TAB* 25 MG PO SCH ×2 (08:28→20:52)
[2017-09-22] MEDS: Morphine TAB Extended Release (*) 30 MG TAB.ER PO SCH ×2 (08:29→20:51)
[2017-09-22] MEDS: Pregabalin CAP(*) 25 MG PO SCH ×2 (08:29→20:51)
[2017-09-22] MEDS: DULoxetine DR CAP* 20 MG CAP.DR PO SCH (08:29)
[2017-09-22] MEDS: Omeprazole CAP* 20 MG PO SCH ×2 (08:30→16:08)
[2017-09-22] MEDS: Docusate CAP* 100 MG PO SCH ×2 (08:30→20:51)
[2017-09-22] MEDS: Magnesium Hydroxide LIQ* 30 ML UDC PO SCH ×2 (08:30→20:51)
[2017-09-22] MEDS: Spironolactone TAB* 25 MG PO SCH (08:30)
[2017-09-22] MEDS: Furosemide TAB* 40 MG PO SCH (08:30)
[2017-09-22 08:31] LABS: EGFR Non-African American 44.7 (>60)
[2017-09-22 08:39] LABS: ABS Basophils 0 10^3/ul (0-0.2); ABS Eosinophils 0.1 10^3/ul (0-0.6); ABS Monocytes 0.7 10^3/ul (0-0.8); ABS Neutrophils 10.1 10^3/ul (1.5-7.7)
[2017-09-22 08:42] LABS: ABS Basophils 0.1 10^3/ul (0-0.2); ABS Neutrophils 9.6 10^3/ul (1.5-7.7); Monocytes % 8 % (0-7)
[2017-09-22] MEDS: CMC:Saliva Substitute (NF) 1 SPRAY BTL MT SCH (08:43)
--- NOTE | 2017-09-22 09:19 | PN ---
Subjective - Subjective Reason for Note: Progress Note History: Her last 24 hours are characterized by hypotension and cold extremities. Interestingly, the RNs state she is more alert, oriented and communicative than for the past few days. She continues to have pain in her right side - hip area and thigh. She states she feels "unwell all over" - but is unable to characterize this. She denies the following: * fevers, chills or shakes * new cough, dyspnea or sputum * chest pain or pressure * nausea or vomiting - she states she is anorectic * diarrhea * headache, photophobia or neck stiffness 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 Current Medications: Current Medications Acetaminophen (Tylenol Tab*) 650 mg PO Q4H PRN PRN Reason: FEVER/PAIN Last Admin: 09/19/17 11:48 Dose: 650 mg Al Hydrox/Mg Hydrox/Simethicone (Maalox Plus*) 30 ml PO Q6H PRN PRN Reason: INDIGESTION Albuterol (Ventolin 2.5 Mg/3 Ml Neb.Azul*) 2.5 mg INH [id number] AWAKE PRN PRN Reason: sob/wheezing Last Admin: 09/21/17 18:08 Dose: 2.5 mg Bisacodyl (Dulcolax Supp*) 10 mg MT DAILY PRN PRN Reason: constipation Cyclobenzaprine HCl (Flexeril Tab*) 5 mg PO TID PRN PRN Reason: SPASMS Last Admin: 09/19/17 11:49 Dose: 5 mg Diphenhydramine HCl (Benadryl Liq*) 12.5 mg PO Q6H PRN PRN Reason: PRURITIS Docusate Sodium (Colace Cap*) 100 mg PO BID [facility] Last Admin: 09/22/17 08:30 Dose: 100 mg Duloxetine HCl (Cymbalta Cap*) 20 mg PO DAILY [facility] Last Admin: 09/22/17 08:29 Dose: 20 mg Furosemide (Lasix Tab*) 120 mg PO DAILY [facility] Last Admin: 09/22/17 08:30 Dose: 120 mg Heparin Sodium (Porcine) (Heparin Flush Picc/Ml/Cvc(*)) 1 - 3 ml FLUSH 0600, 1800 [facility]; Protocol Last Admin: 09/22/17 05:48 Dose: Not Given Hydromorphone HCl (Dilaudid Inj*) 1 mg IV SLOW PU Q2H PRN PRN Reason: PAIN Last Admin: 09/21/17 04:32 Dose: 1 mg Lactulose (Lactulose*) 30 ml PO Q6H PRN PRN Reason: constipation Loperamide HCl (Imodium Cap*) 2 mg PO Q4H PRN PRN Reason: DIARRHEA Magnesium Hydroxide (Milk Of Magnesia Liq*) 30 ml PO BID [facility] Last Admin: 09/22/17 08:30 Dose: 30 ml Magnesium Hydroxide (Milk Of Magnesia Liq*) 30 ml PO Q6H PRN PRN Reason: constipation Metoprolol Tartrate (Lopressor Tab*) 12.5 mg PO BID [facility] Last Admin: 09/22/17 08:28 Dose: 12.5 mg Morphine Sulfate (Ms Contin(*)) 60 mg PO Q12HR [facility] Last Admin: 09/22/17 08:29 Dose: 60 mg Multivitamins (Theragran Tab*) 1 tab PO DAILY [facility] Last Admin: 09/22/17 08:28 Dose: 1 tab Omeprazole (Prilosec Cap*) 20 mg PO BID@0730,1630 [facility] Last Admin: 09/22/17 08:30 Dose: 20 mg Ondansetron HCl (Zofran Tab*) 4 mg PO Q6H PRN PRN Reason: NAUSEA Pharmacy Profile Note (Fentanyl Patch Check Q Shift) 1 note N/A 0700,1900 [facility] Last Admin: 09/22/17 07:16 Dose: 1 note Polyvinyl Alcohol (Polyvinyl Alcohol 1.4% Opth*) 2 drop BOTH EYES DAILY PRN PRN Reason: DRY EYE Pregabalin (Lyrica Cap(*)) 25 mg PO BID [facility] Last Admin: 09/22/17 08:29 Dose: 25 mg Saliva Substitute (Biotene Moisturizing Mouth (Nf)) 2 spray MT QAM [facility]; Protocol Last Admin: 09/22/17 08:43 Dose: 2 spray Spironolactone (Aldactone Tab*) 25 mg PO BID [facility] Last Admin: 09/22/17 08:30 Dose: 25 mg Home Medications: Home Medications Medication Instructions Recorded Confirmed Type Artificial Tears* 15 ML BTL 2 drop BOTH EYES DAILY PRN 02/05/15 09/06/17 History [Polyvinyl Alcohol 1.4% OPTH*] Furosemide TAB* [Lasix TAB*] 120 mg PO DAILY 02/05/15 09/06/17 History Omeprazole CAP* [PriLOSEC CAP*] 40 mg PO BID 02/05/15 09/06/17 History oxyCODONE TAB* [Roxycodone TAB*] 5 mg PO Q3HR PRN MDD 40 mg 02/05/15 09/06/17 History Pregabalin CAP(*) [Lyrica CAP(*)] 25 mg PO BID 05/25/15 09/06/17 History Loperamide CAP* [Imodium CAP*] 2 mg PO Q4H PRN 06/16/15 09/06/17 History Acetaminophen TAB* [Tylenol TAB*] 650 mg PO Q6H PRN 05/07/17 09/06/17 History Al Hydrox/Mg Hydrox/Vanna BULK* 15 ml PO Q4HR PRN 05/07/17 09/06/17 History [Mylanta - BULK BOT*] Metoprolol Tartrate TAB* 12.5 mg PO BID 05/07/17 09/06/17 History [Lopressor TAB*] Morphine Sulfate [Morphine Sulfate 60 mg PO BID 05/07/17 09/06/17 History ER] Ondansetron ODT TAB* [Zofran 4 MG 8 mg PO TID PRN 05/07/17 09/06/17 History Odt TAB*] Sennosides/Docusate Sodium 2 tab PO BID PRN 05/07/17 09/06/17 History [Senna-S Tablet] Conjugated Estrogens VAG CM* 1 applic VAGINAL MOFR 09/06/17 09/06/17 History [Premarin VAG CREAM*] DULoxetine DR CAP* [Cymbalta CAP*] 20 mg PO DAILY 09/06/17 09/06/17 History Docusate CAP* [Colace Cap*] 200 mg PO DAILY PRN 09/06/17 09/06/17 History Fluoride (Sodium) [Prevident 5000 1.1 % PO BID 09/06/17 09/06/17 History Plus] Saliva Substitute (NF) [Biotene 2 spray PO QAM 09/06/17 09/06/17 History Moisturizing Mouth (NF)] Spironolactone TAB* [Aldactone 25 mg PO BID 09/06/17 09/06/17 History TAB*] fentaNYL PATCH 12 MCG/HR * 12 mcg TRANSDERM Q72H 09/06/17 09/06/17 History [Duragesic Patch 12 Mcg/Hr *] Allergies: Allergies Allergy/AdvReac Type Severity Reaction Status Date / Time No Known Allergies Allergy Verified 06/16/15 05:53 Objective - Vital Signs Vital Signs: Vital Signs 09/21/17 09/21/17 09/21/17 10:39 10:40 15:15 Temperature 98.0 F Pulse Rate 86 Respiratory 16 16 16 Rate Blood Pressure 104/51 (mmHg) O2 Sat by Pulse 100 Oximetry 09/21/17 09/21/17 09/21/17 18:09 20:01 21:02 Temperature 97.5 F Pulse Rate 90 87 Respiratory 20 16 20 Rate Blood Pressure 101/52 (mmHg) O2 Sat by Pulse 98 100 Oximetry 09/21/17 09/21/17 09/21/17 21:05 21:10 23:21 Temperature Pulse Rate 77 Respiratory 20 16 19 Rate Blood Pressure 79/47 (mmHg) O2 Sat by Pulse 94 Oximetry 09/21/17 09/22/17 09/22/17 23:48 00:00 00:21 Temperature Pulse Rate 27 Respiratory 16 Rate Blood Pressure 74/47 (mmHg) O2 Sat by Pulse 95 82 Oximetry 09/22/17 09/22/17 09/22/17 01:00 03:30 07:21 Temperature Pulse Rate 59 99 Respiratory 18 22 14 Rate Blood Pressure 87/45 91/62 (mmHg) O2 Sat by Pulse 95 95 79 Oximetry 09/22/17 09/22/17 09/22/17 07:36 08:29 08:31 Temperature Pulse Rate 76 Respiratory 16 Rate Blood Pressure (mmHg) O2 Sat by Pulse 96 95 Oximetry - Intake and Output Intake and Output: Intake & Output 09/19/17 09/20/17 09/21/17 09/22/17 11:59 11:59 11:59 11:59 Intake Total 1160 520 52 30 Output Total 300 0 Balance 1160 220 52 30 Weight 137 lb 11.2 oz 134 lb 12.8 oz 131 lb 126 lb 9.6 oz Intake: Oral 1160 520 52 30 Output: Urine 0 Straight Cath 300 Other: Estimated Void Small Large Small Small Date of Last Bowel 09/16/17 unknown Movement # Bowel Movements 0 0 0 0 # Voids 1 1 0 1 ADLs: Meal Record Start: 09/06/17 17: 52 Freq: DAILY@0900,1400,1800 Status: Complete Protocol: Created 09/06/17 17:52 System (Rec: 09/06/17 17:52 System IMGED-CS01) Document 09/07/17 09:00 [id number] (Rec: 09/07/17 10:15 WUL6303 TELE-C03) Document 09/07/17 14:00 MGA5144 (Rec: 09/07/17 14:54 DMY3632 TELE-C03) Document 09/07/17 18:00 SHW0794 (Rec: 09/07/17 18:11 WAV9327 TELE-C03) Document 09/08/17 09:00 SQZ8410 (Rec: 09/08/17 13:45 SYG7611 TELE-C01) Document 09/08/17 13:46 NPS8237 (Rec: 09/08/17 13:47 OND8052 TELE-C01) Document 09/08/17 18:00 RMK0888 (Rec: 09/08/17 20:21 MOB2497 TELE-C01) Document 09/09/17 09:00 SCH4633 (Rec: 09/09/17 10:53 NII4327 TELE-C13) Document 09/09/17 13:43 LVD8733 (Rec: 09/09/17 13:45 CJZ8311 TELE-C11) Document 09/09/17 18:00 UNH6206 (Rec: 09/09/17 21:58 OVR2098 TELE-C13) Document 09/10/17 09:00 WFS3392 (Rec: 09/10/17 11:38 WPK7200 TELE-C08) Document 09/10/17 14:00 TQV4850 (Rec: 09/10/17 14:48 PSP1173 TELE-C08) Document 09/11/17 09:00 WON4607 (Rec: 09/11/17 09:50 HXD6661 MED-C09) Document 09/11/17 13:34 LHL9445 (Rec: 09/11/17 13:36 TJM2527 MED-C13) ADLs: Meal Record Start: 09/11/17 21: 50 Freq: Status: Complete Protocol: Created 09/11/17 21:50 VMR4616 (Rec: 09/11/17 21:50 OJT4075 ICU-C12) ADLs: Meal Record Start: 09/13/17 00: 54 Freq: DAILY@0900,1400,1800 Status: Active Protocol: Created 09/13/17 00:54 VYT9349 (Rec: 09/13/17 00:54 CFV7078 ICU-C12) Document 09/13/17 09:00 MGI6712 (Rec: 09/13/17 09:09 EGX5677 MED-C09) Document 09/13/17 14:00 XRP5174 (Rec: 09/13/17 14:19 VOY1904 MED-C11) Document 09/13/17 18:00 IJO0725 (Rec: 09/13/17 19:37 FEB8989 MED-C11) Document 09/14/17 09:00 YQG1746 (Rec: 09/14/17 09:16 VCK1520 MED-C09) Document 09/14/17 13:31 VHP9343 (Rec: 09/14/17 13:38 VUJ0594 MED-C09) Document 09/14/17 17:51 IKS0946 (Rec: 09/14/17 17:51 DDG4392 MED-C09) Document 09/15/17 09:00 IFR0222 (Rec: 09/15/17 14:34 OXU9984 MED-C11) Document 09/15/17 14:00 GCR5447 (Rec: 09/15/17 14:34 EYV9816 MED-C11) Document 09/15/17 18:00 DGN7294 (Rec: 09/15/17 18:23 MQZ1667 MED-C11) Document 07/01/18 09:00 QQU6903 (Rec: 09/16/17 13:54 MNH2019 MED-C07) Document 09/16/17 14:00 DIQ3021 (Rec: 09/16/17 16:36 CVM0209 MED-C14) Document 09/16/17 18:00 KWL5608 (Rec: 09/16/17 18:16 GIY4082 MED-C11) Document 09/17/17 09:00 OSR8848 (Rec: 09/17/17 11:20 XIA1291 TELE-M13) Document 09/17/17 14:00 HWI5938 (Rec: 09/17/17 14:02 UJA7245 MED-C11) Document 09/17/17 18:00 VDW9608 (Rec: 09/17/17 19:46 EWF6302 MED-C11) Document 09/18/17 09:00 BTK2891 (Rec: 09/18/17 09:45 GRS1028 MED-C09) Document 09/18/17 14:00 MHN9382 (Rec: 09/18/17 14:57 USW5170 MED-C09) Document 09/18/17 18:00 GYM0371 (Rec: 09/18/17 18:24 GMS6621 MED-C11) Document 09/19/17 09:00 LGC7492 (Rec: 09/19/17 10:20 TLI6121 MED-C09) Document 09/19/17 13:46 WJC8848 (Rec: 09/19/17 13:48 ONH2453 MED-C11) Document 09/19/17 18:00 VSN8108 (Rec: 09/19/17 18:40 AEW1526 MED-C09) Document 09/20/17 09:00 MXY8124 (Rec: 09/20/17 09:04 GJA0283 MED-C09) Document 09/20/17 13:41 UIS9703 (Rec: 09/20/17 13:41 XAW6322 MED-C09) Document 09/20/17 18:00 QFQ7437 (Rec: 09/20/17 18:26 PEA3755 MED-C09) Document 09/21/17 09:00 CCP8804 (Rec: 09/21/17 10:44 CEF0101 MED-C09) Document 09/21/17 13:21 NJN2620 (Rec: 09/21/17 13:21 CGC2708 MED-C09) Document 09/21/17 18:00 TOQ9358 (Rec: 09/21/17 18:51 OQZ4770 MED-C09) Document 09/22/17 09:00 OJQ9582 (Rec: 09/22/17 09:01 FSE8389 MED-C09) Intake and Output Start: 09/06/17 11: 50 Freq: Status: Cancelled Protocol: Created 09/06/17 11:50 System (Rec: 09/06/17 11:50 System ED-C22) Intake and Output Start: 09/06/17 17: 52 Freq: DAILY@0600,1400,2200 Status: Complete Protocol: Created 09/06/17 17:52 System (Rec: 09/06/17 17:52 System IMGED-CS01) Document 09/07/17 06:00 JRY0133 (Rec: 09/07/17 06:03 EBY1244 TELE-C05) Document 09/07/17 22:00 EYS5495 (Rec: 09/07/17 22:50 WQN4012 TELE-C03) Document 09/08/17 06:00 MUD6867 (Rec: 09/08/17 06:31 UCF7084 TELE-C01) Document 09/08/17 13:46 UYE9985 (Rec: 09/08/17 13:47 ZQG5684 TELE-C01) Document 09/08/17 21:36 ZAL4643 (Rec: 09/08/17 21:38 YXT0073 TELE-C03) Document 09/09/17 06:00 PXN9643 (Rec: 09/09/17 06:20 QCL1086 TELE-C08) Document 09/09/17 13:43 FHO8712 (Rec: 09/09/17 13:45 MMF7941 TELE-C11) Document 09/09/17 22:00 CLB3517 (Rec: 09/09/17 22:16 RUI1982 TELE-C13) Document 09/10/17 06:00 RNB0218 (Rec: 09/10/17 06:18 GFQ0159 TELE-C03) Document 09/10/17 14:00 LBY2881 (Rec: 09/10/17 14:48 GKM4028 TELE-C08) Document 09/10/17 21:23 NYJ3239 (Rec: 09/10/17 21:23 IGZ3052 MED-C13) Document 09/11/17 06:00 OVJ0394 (Rec: 09/11/17 06:34 ZKQ3942 MED-C26) Document 09/11/17 13:34 WOO0323 (Rec: 09/11/17 13:36 SJQ6180 MED-C13) Intake and Output Start: 09/11/17 21: 50 Freq: Q1HR Status: Cancelled Protocol: Created 09/11/17 21:50 BBC1405 (Rec: 09/11/17 21:50 XGE4121 ICU-C12) Intake and Output Start: 09/11/17 23: 52 Freq: 06,14,2200 Status: Active Protocol: Created 09/11/17 23:57 LVT4326 (Rec: 09/11/17 23:57 BKG [facility]-BG12) Document 09/12/17 05:36 GMN3053 (Rec: 09/12/17 05:36 TBH3646 ISDEMO-M05 ) Document 09/12/17 13:33 SUL5147 (Rec: 09/12/17 13:33 GBJ0876 ICU-C12) Document 09/12/17 14:00 ZZQ1693 (Rec: 09/12/17 14:03 DIR9959 ISDEMO-M05 ) Document 09/12/17 15:00 ILE5938 (Rec: 09/12/17 15:09 ZFJ1999 ICU-C15) Document 09/12/17 16:00 RSO9768 (Rec: 09/12/17 16:31 LWA6626 ICU-C15) Document 09/12/17 17:00 EAH8821 (Rec: 09/12/17 17:36 OCR1647 ICU-C15) Document 09/12/17 18:00 OML8106 (Rec: 09/12/17 19:07 GIO2586 ISDEMO-M05 ) Document 09/12/17 19:00 WYE1704 (Rec: 09/12/17 19:08 IEB1483 ISDEMO-M05 ) Document 09/12/17 20:00 ETK8379 (Rec: 09/12/17 23:09 DLQ0195 ICU-C15) Document 09/12/17 21:00 CTT5561 (Rec: 09/12/17 23:09 KDH5116 ICU-C15) Document 09/12/17 22:00 ZAX7711 (Rec: 09/12/17 23:09 QLZ0920 ICU-C15) Document 09/12/17 23:00 FGS9209 (Rec: 09/12/17 23:09 YKL7616 ICU-C15) Document 09/13/17 00:00 TKV9915 (Rec: 09/13/17 03:11 MBG5813 ICU-C15) Document 09/13/17 05:24 VPB5588 (Rec: 09/13/17 05:25 VGB0576 ICU-C15) Document 09/13/17 14:00 EOF1948 (Rec: 09/13/17 14:23 TMA4684 MED-C02) Document 09/13/17 14:00 SYJ0306 (Rec: 09/13/17 14:19 QVF8224 MED-C11) Document 09/13/17 21:48 XVL2794 (Rec: 09/13/17 21:49 BLE4000 MED-C11) Document 09/14/17 06:00 VGV9547 (Rec: 09/14/17 06:37 BNX9300 MED-C09) Document 09/14/17 13:31 OBS8450 (Rec: 09/14/17 13:38 ITW1066 MED-C09) Document 09/14/17 22:00 BQE2453 (Rec: 09/14/17 22:44 WVX3768 MED-C09) Document 09/15/17 05:50 BGF6475 (Rec: 09/15/17 05:56 UWT0158 MED-C09) Document 09/15/17 14:00 GEC5194 (Rec: 09/15/17 14:34 VKT7427 MED-C11) Document 09/15/17 21:38 XTX9727 (Rec: 09/15/17 21:40 JHQ8177 MED-C11) Document 09/16/17 06:00 ZBT6307 (Rec: 09/16/17 06:13 VDF5020 MED-C09) Document 09/16/17 16:37 ZOT0115 (Rec: 09/16/17 16:37 HFF9266 MED-C14) Document 09/16/17 21:05 XAK9733 (Rec: 09/16/17 21:06 BQM8418 MED-C11) Document 09/17/17 05:55 PLI9066 (Rec: 09/17/17 05:55 JWK6872 MED-C02) Document 09/17/17 13:49 SDF1372 (Rec: 09/17/17 14:01 PBT3008 MED-C11) Document 09/17/17 22:00 PXY8599 (Rec: 09/17/17 22:25 ZMI9017 MED-C11) Document 09/18/17 04:54 AIX4015 (Rec: 09/18/17 04:54 APW9645 MED-C02) Document 09/18/17 14:00 SZZ5068 (Rec: 09/18/17 14:57 QZF7830 MED-C09) Document 09/18/17 22:00 BJP2066 (Rec: 09/18/17 22:19 GQS5966 MED-C11) Document 09/19/17 05:47 WYX5243 (Rec: 09/19/17 05:49 XXK1735 MED-C09) Document 09/19/17 13:46 OTP1608 (Rec: 09/19/17 13:48 FEG7912 MED-C11) Document 09/19/17 22:00 NZY0705 (Rec: 09/19/17 22:14 EMK5840 MED-C09) Document 09/20/17 06:00 DJJ8028 (Rec: 09/20/17 06:22 DJL6474 MED-C09) Document 09/20/17 14:00 SJF9427 (Rec: 09/20/17 14:23 QPD4320 MED-C09) Document 09/20/17 20:34 MFF7837 (Rec: 09/20/17 20:36 OCI6370 MED-C13) Document 09/21/17 05:47 UIU7011 (Rec: 09/21/17 05:48 UMG8076 MED-C09) Document 09/21/17 14:00 NHT3316 (Rec: 09/21/17 14:28 LKY5733 MED-C09) Document 09/21/17 22:00 KJU2868 (Rec: 09/21/17 22:42 AAQ9261 MED-C09) Document 09/22/17 05:20 WTC5395 (Rec: 09/22/17 05:20 WXK7949 MED-C15) Intake and Output Start: 09/13/17 00: 54 Freq: DAILY@0600,1400,2200 Status: Complete Protocol: Created 09/13/17 00:54 UFB5486 (Rec: 09/13/17 00:54 SBI6932 ICU-C12) Document 09/13/17 06:00 (Rec: 09/13/17 06:21 MED-M11) - Physical Exam General Physical Exam Comment: She has a large hematoma subcutaneously extending over her right abdomen, flank. There are also hematomas/swelling left elbow> right elbow. She remains frail. She answers questions in sentances and is insightful General: No Cyanosis, Yes Anemia, Yes Jaundice, No Clubbing Lungs and Chest: Yes: Chest Expansion Symetrica, Percussion Note Resonant, Vessicular Breath Sounds. No: Chest Expansion Full, Crackles, Wheezes Heart Rate and Rhythm: Regular JVP: Elevated Additional Cardiovascular: Yes: Normal Heart Sounds. No: Heart Murmur, Pedal Edema Abdominal Exam: Yes: Soft, Bowel Sounds Present. No: Distention, Hepatomegaly, Splenomegaly - Extremities Cranial Nerves II-XII Intact: Yes Limbs: Abnormal Power - general weakness, but moving all extremities - Neuro Orientation: Person Speech: Normal - deaf Results - Results Lab Results: Laboratory Results - last 24 hr 09/18/17 09/20/17 09/21/17 09:46 09:40 13:45 WBC RBC Hgb Hct MCV MCH MCHC RDW Plt Count MPV Neut % (Auto) Lymph % (Auto) [place] % (Auto) Eos % (Auto) Baso % (Auto) Absolute Neuts (auto) Absolute Lymphs (auto) Absolute Monos (auto) Absolute Eos (auto) Absolute Basos (auto) Absolute Nucleated RBC Neutrophils % Lymphocytes % Reactive Lymphs % Monocytes % Eosinophils % Basophils % Nucleated RBC % Abs Neuts (Manual) Abs Lymphs (Manual) Abs Monocytes (Manual) Absolute Eos (Manual) Abs Basophils (Manual) Nucleated RBCs/100 WBC Normal RBC Morphology Polychromasia Hypochromasia Macrocytosis Haptoglobin 71 APTT 39.0 H Heparin Anti-Xa Activ 0.65 Factor X 80 Sodium Potassium Chloride Carbon Dioxide Anion Gap BUN Creatinine Est GFR ( Amer) Est GFR (Non-Af Amer) BUN/Creatinine Ratio Glucose Calcium Total Bilirubin AST ALT Alkaline Phosphatase C-Reactive Protein Total Protein Albumin Globulin Albumin/Globulin Ratio Prealbumin 09/22/17 09/22/17 07:47 07:48 WBC 11.9 H RBC 2.73 L Hgb 8.9 L Hct 27 L MCV 99 H MCH 33 H MCHC 33 RDW 16 H Plt Count 228 MPV 10.5 H Neut % (Auto) Not Reportable Lymph % (Auto) Not Reportable [place] % (Auto) Not Reportable Eos % (Auto) Not Reportable Baso % (Auto) Not Reportable Absolute Neuts (auto) 10.1 H Absolute Lymphs (auto) 1.0 Absolute Monos (auto) 0.7 Absolute Eos (auto) 0.1 Absolute Basos (auto) 0 Absolute Nucleated RBC Not Reportable Neutrophils % 81 Lymphocytes % 8 L Reactive Lymphs % 1 Monocytes % 8 H Eosinophils % 1 Basophils % 1 Nucleated RBC % Not Reportable Abs Neuts (Manual) 9.6 H Abs Lymphs (Manual) 1.0 Abs Monocytes (Manual) 1.0 H Absolute Eos (Manual) 0.1 Abs Basophils (Manual) 0.1 Nucleated RBCs/100 WBC 22 H Normal RBC Morphology Not Reportable Polychromasia 2+ Hypochromasia 1+ Macrocytosis 1+ Haptoglobin APTT Heparin Anti-Xa Activ Factor X Sodium 141 Potassium 5.2 H Chloride 102 Carbon Dioxide 32 Anion Gap 7 BUN 35 H Creatinine 1.15 H Est GFR ( Amer) 54.1 Est GFR (Non-Af Amer) 44.7 BUN/Creatinine Ratio 30.4 H Glucose 120 H Calcium 8.1 L Total Bilirubin 5.10 H AST 33 ALT 15 Alkaline Phosphatase 116 H C-Reactive Protein 158.17 H Total Protein 5.0 L Albumin 2.9 L Globulin 2.1 Albumin/Globulin Ratio 1.4 Prealbumin 7 L Assessment - Problem List Assessment: Patient Problems Anemia (Acute) CRP elevated (Acute) Hematoma (Acute) History of total right hip arthroplasty (Acute) Hyperbilirubinemia (Acute) Hypotension (Acute) Oliguria (Acute) Acute diastolic (congestive) heart failure (Chronic) Amyloidosis (Chronic) Disorientation (Chronic) Frailty (Chronic) Hyperlipidemia (Chronic) IgA myeloma (Chronic) Personal history of gastric ulcer (Chronic) 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 CRP elevated (Acute) Her Neutrophil percent 09/20/17 85% and 09/22/17 81% (phone call with vp product management who performed the count manually). There is a discrepency between the CRP and the % neutrophils. Generally the % neutrophils go up down earlier than CRP. It seems unlikely to me this is a sign of acute infection. I think most likely this is a result of her hematoma. I will check a CXR just in case of a pneumonia. Her most recent U/A was negative 09/19/2017. I will not treat this empirically Hematoma (Acute) She has several hematomas, but there is no evidence of ongoing hemorrhage. I think that she is currently inflammed from all this blood in tissue compartments. History of total right hip arthroplasty (Acute) I reviewed Dr. Hill's note from yesterday Hyperbilirubinemia (Acute) this is beginning to come down - I suspect it is related to the hematoma, though amiodarone also may contribute as per Dr. Isidra Beckwith Hypotension (Acute) / Oliguria (Acute) this is my greatest concern. I don't know the mechanism. It may simply be dehydration from her diuretic therapy. However, her BUN/Cr has been higher in the past. Her creatinine is stable, but not coming down further. She has little muscle bulk, hence this creatinine may be "artificially" low and her renal function (per Dr. Adam) may be falsely "good " per eGFR Acute diastolic (congestive) heart failure (Chronic) She has a poor cardiac output. I will review medication that influences her cardiac output. I am concerned her potassium is higher. 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 I asked her what she wants from us in several different ways. She would like me to make her "100% better". I framed my question with her history of being on hospice in the past and gave comfort care as an alternative - she wasn't having this. I recognize she is fragile and has likely disease processes we are not fully aware of. However, I will continue conservative acute medical care.
[2017-09-22] MEDS ORDERED: NS 0.9% 250 ML* 250 ML IV SCH (10:00)
--- NOTE | 2017-09-22 10:47 | RAD ---
INDICATION: Pneumonia versus CHF. COMPARISON: Comparison is made with a prior study from September 18, 2017. TECHNIQUE: A portable view of the chest was obtained. FINDINGS: The heart is moderately enlarged and unchanged from the prior exam. There are moderate-sized bilateral pleural effusions present. The effusions obscure both lung bases. There is a small calcific nodule which projects over the right upper lobe suggestive of old granulomatous disease. IMPRESSION: MODERATE SIZE BILATERAL PLEURAL EFFUSIONS AND CARDIOMEGALY, UNCHANGED.
--- NOTE | 2017-09-22 13:02 | PN ---
Progress Note - Progress Note Date of Service: 09/22/17 SOAP: Subjective: Pt was sleeping when I checked on her. Objective: General: 86 y/o F NAD, sitting comfortably in chair. RLE: Dressing C/D/I, no erythema or warmth. Ecchymosis noted at lateral thigh.+ 2 DP pulse. calf soft NT. SILT distally Vital Signs Temp Pulse Resp BP Pulse Ox 97.5 F 72 16 91/48 98 09/22/17 08:00 09/22/17 11:09 09/22/17 12:34 09/22/17 11:09 09/22/17 11:32 Laboratory Results - last 24 hr 09/18/17 09/21/17 09/22/17 09:46 13:45 07:47 WBC RBC Hgb Hct MCV MCH MCHC RDW Plt Count MPV Neut % (Auto) Lymph % (Auto) [place] % (Auto) Eos % (Auto) Baso % (Auto) Absolute Neuts (auto) Absolute Lymphs (auto) Absolute Monos (auto) Absolute Eos (auto) Absolute Basos (auto) Absolute Nucleated RBC Neutrophils % Lymphocytes % Reactive Lymphs % Monocytes % Eosinophils % Basophils % Nucleated RBC % Abs Neuts (Manual) Abs Lymphs (Manual) Abs Monocytes (Manual) Absolute Eos (Manual) Abs Basophils (Manual) Nucleated RBCs/100 WBC Normal RBC Morphology Polychromasia Hypochromasia Macrocytosis Haptoglobin 71 APTT 39.0 H Factor X 80 Sodium 141 Potassium 5.2 H Chloride 102 Carbon Dioxide 32 Anion Gap 7 BUN 35 H Creatinine 1.15 H Est GFR ( Amer) 54.1 Est GFR (Non-Af Amer) 44.7 BUN/Creatinine Ratio 30.4 H Glucose 120 H Calcium 8.1 L Total Bilirubin 5.10 H AST 33 ALT 15 Alkaline Phosphatase 116 H C-Reactive Protein 158.17 H Total Protein 5.0 L Albumin 2.9 L Globulin 2.1 Albumin/Globulin Ratio 1.4 Prealbumin 7 L 09/22/17 07:48 WBC 11.9 H RBC 2.73 L Hgb 8.9 L Hct 27 L MCV 99 H MCH 33 H MCHC 33 RDW 16 H Plt Count 228 MPV 10.5 H Neut % (Auto) Not Reportable Lymph % (Auto) Not Reportable [place] % (Auto) Not Reportable Eos % (Auto) Not Reportable Baso % (Auto) Not Reportable Absolute Neuts (auto) 10.1 H Absolute Lymphs (auto) 1.0 Absolute Monos (auto) 0.7 Absolute Eos (auto) 0.1 Absolute Basos (auto) 0 Absolute Nucleated RBC Not Reportable Neutrophils % 81 Lymphocytes % 8 L Reactive Lymphs % 1 Monocytes % 8 H Eosinophils % 1 Basophils % 1 Nucleated RBC % Not Reportable Abs Neuts (Manual) 9.6 H Abs Lymphs (Manual) 1.0 Abs Monocytes (Manual) 1.0 H Absolute Eos (Manual) 0.1 Abs Basophils (Manual) 0.1 Nucleated RBCs/100 WBC 22 H Normal RBC Morphology Not Reportable Polychromasia 2+ Hypochromasia 1+ Macrocytosis 1+ Haptoglobin APTT Factor X Sodium Potassium Chloride Carbon Dioxide Anion Gap BUN Creatinine Est GFR ( Amer) Est GFR (Non-Af Amer) BUN/Creatinine Ratio Glucose Calcium Total Bilirubin AST ALT Alkaline Phosphatase C-Reactive Protein Total Protein Albumin Globulin Albumin/Globulin Ratio Prealbumin Assessment: POD #11 Right hip hemiarthroplasty. Plan: - Anticoag held per intramuscular hematoma per hematology - D/C when medically stable - Follow up with Dr. Hinojosa in the office 2 weeks s/p surgery, if still in house, staple removal at that time. - PT as able-WBAT post hip precautions - Dressing change once daily by nursing. Use FOAM TAPE not paper tape.
[2017-09-23] MEDS: fentaNYL Patch Check Q Shift 1 NOTE SCH (06:45)
[2017-09-23 07:43] LABS: Hematocrit 33 % (35-47); Hemoglobin 10.6 g/dl (12.0-16.0); Mean Corpuscular HGB Conc 32 g/dl (31-36); Mean Corpuscular Hemoglobin 31 pg (27-31); Mean Corpuscular Volume 97 fL (80-97); Mean Platelet Volume 10.3 um3 (7.4-10.4); Platelet Count 233 10^3/ul (150-450); Red Blood Count 3.41 10^6/ul (4.00-5.40); Red Cell Distribution Width 17 % (10.5-15); White Blood Count 10.3 10^3/ul (3.5-10.8)
[2017-09-23 08:45] LABS: EGFR Non-African American 44.3 (>60)
[2017-09-23 08:56] LABS: ABS Basophils 0 10^3/ul (0-0.2); ABS Eosinophils 0.1 10^3/ul (0-0.6); ABS Lymphocytes 0.9 10^3/ul (1.0-4.8); ABS Monocytes 0.6 10^3/ul (0-0.8); ABS Neutrophils 8.7 10^3/ul (1.5-7.7)
[2017-09-23 09:00] LABS: ABS Basophils 0 10^3/ul (0-0.2); ABS Neutrophils 8.4 10^3/ul (1.5-7.7); Monocytes % 5 % (0-7)
--- NOTE | 2017-09-23 10:42 | PN ---
Progress Note - Progress Note Date of Service: 09/23/17 SOAP: Subjective: Pt is sleeping this morning. Very drowsy but able I was able to wake her. Objective: PE- 86 y/o WDWN F NAD, drowsy RLE- Dressing c/d/i, ecchymosis lateral thigh, no warmth, +2 DP pulse, SILT distally Vital Signs Temp Pulse Resp BP Pulse Ox 98.2 F 85 14 98/61 98 09/23/17 07:15 09/23/17 07:28 09/23/17 07:28 09/23/17 07:28 09/23/17 07:28 Laboratory Results - last 24 hr 09/20/17 09/23/17 09/23/17 06:32 07:29 07:29 WBC 10.3 RBC 3.41 L Hgb 10.6 L Hct 33 L MCV 97 MCH 31 MCHC 32 RDW 17 H Plt Count 233 MPV 10.3 Neut % (Auto) Not Reportable Lymph % (Auto) Not Reportable [place] % (Auto) Not Reportable Eos % (Auto) Not Reportable Baso % (Auto) Not Reportable Absolute Neuts (auto) 8.7 H Absolute Lymphs (auto) 0.9 L Absolute Monos (auto) 0.6 Absolute Eos (auto) 0.1 Absolute Basos (auto) 0 Absolute Nucleated RBC Not Reportable Neutrophils % 82 Lymphocytes % 13 L Monocytes % 5 Eosinophils % 0 Basophils % 0 Nucleated RBC % Not Reportable Abs Neuts (Manual) 8.4 H Abs Lymphs (Manual) 1.3 Abs Monocytes (Manual) 0.5 Absolute Eos (Manual) 0 Abs Basophils (Manual) 0 Nucleated RBCs/100 WBC 34 H Normal RBC Morphology Not Reportable Polychromasia 2+ Anisocytosis 1+ Macrocytosis 1+ Sodium 142 Potassium 4.8 Chloride 102 Carbon Dioxide 32 Anion Gap 8 BUN 36 H Creatinine 1.16 H Est GFR ( Amer) 53.6 Est GFR (Non-Af Amer) 44.3 BUN/Creatinine Ratio 31.0 H Glucose 116 H Calcium 8.2 L Total Bilirubin 5.10 H Direct Bilirubin 2.90 H Indirect Bilirubin 2.2 H AST 27 ALT 14 Alkaline Phosphatase 116 H C-Reactive Protein 121.28 H Total Protein 5.1 L Albumin 3.0 L Globulin 2.1 Albumin/Globulin Ratio 1.4 Blood Type A Positive Antibody Screen Negative Crossmatch See Detail Assessment: POD #12 Right hip hemiarthroplasty. Plan: - Anticoag held per intramuscular hematoma per hematology - D/C when medically stable - Follow up with Dr. Hinojosa in the office 2 weeks s/p surgery, if still in house, staple removal at that time. - WBAT post hip precautions- cont physical therapy as able - Dressing change once daily by nursing. Use FOAM TAPE not paper tape.
[2017-09-23] MEDS: Pregabalin CAP(*) 25 MG PO SCH ×2 (10:49→21:50)
[2017-09-23] MEDS: DULoxetine DR CAP* 20 MG CAP.DR PO SCH (10:50)
[2017-09-23] MEDS: Morphine TAB Extended Release (*) 30 MG TAB.ER PO SCH (10:50)
[2017-09-23] MEDS: Omeprazole CAP* 20 MG PO SCH ×2 (10:50→19:19)
[2017-09-23] MEDS: Vitamin THERAPEUTIC TAB PO SCH (10:51)
[2017-09-23] MEDS: Docusate CAP* 100 MG PO SCH ×2 (10:51→20:15)
[2017-09-23] MEDS: Magnesium Hydroxide LIQ* 30 ML UDC PO SCH ×2 (10:52→20:15)
[2017-09-23] MEDS: CMC:Saliva Substitute (NF) 1 SPRAY BTL MT SCH (10:52)
[2017-09-23] MEDS: Metoprolol Tartrate TAB* 25 MG PO SCH ×2 (10:52→21:50)
--- NOTE | 2017-09-23 11:35 | PN ---
Subjective - Subjective Reason for Note: Progress Note History: She is asleep when I enter and I don't try to wake her as she is comfortable. She was hypotensive and shut down peripherally yesterday. I gave her IVF bolus 250 ml and then a transfusion of 1 unit PRBCs. I also stopped her diuretics for one day. Her BP seems improved. We have no measurement of her urine output. 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 Current Medications: Current Medications Acetaminophen (Tylenol Tab*) 650 mg PO Q4H PRN PRN Reason: FEVER/PAIN Last Admin: 09/19/17 11:48 Dose: 650 mg Al Hydrox/Mg Hydrox/Simethicone (Maalox Plus*) 30 ml PO Q6H PRN PRN Reason: INDIGESTION Albuterol (Ventolin 2.5 Mg/3 Ml Neb.Azul*) 2.5 mg INH RT.[id number] AWAKE PRN PRN Reason: sob/wheezing Last Admin: 09/21/17 18:08 Dose: 2.5 mg Bisacodyl (Dulcolax Supp*) 10 mg AR DAILY PRN PRN Reason: constipation Diphenhydramine HCl (Benadryl Liq*) 12.5 mg PO Q6H PRN PRN Reason: PRURITIS Docusate Sodium (Colace Cap*) 100 mg PO BID SHANA Last Admin: 09/23/17 10:51 Dose: 100 mg Duloxetine HCl (Cymbalta Cap*) 20 mg PO DAILY SHANA Last Admin: 09/23/17 10:50 Dose: 20 mg Heparin Sodium (Porcine) (Heparin Flush Picc/Ml/Cvc(*)) 1 - 3 ml FLUSH 0600, 1800 [facility]; Protocol Last Admin: 09/23/17 05:38 Dose: Not Given Hydromorphone HCl (Dilaudid Inj*) 1 mg IV SLOW PU Q2H PRN PRN Reason: PAIN Last Admin: 09/21/17 04:32 Dose: 1 mg Sodium Chloride (Ns 0.9% 250 Ml*) 250 mls @ 125 mls/hr IV PER RATE [facility] Last Admin: 09/22/17 10:13 Dose: 125 mls/hr Loperamide HCl (Imodium Cap*) 2 mg PO Q4H PRN PRN Reason: DIARRHEA Magnesium Hydroxide (Milk Of Magnesia Liq*) 30 ml PO BID [facility] Last Admin: 09/23/17 10:52 Dose: Not Given Magnesium Hydroxide (Milk Of Magnesia Liq*) 30 ml PO Q6H PRN PRN Reason: constipation Metoprolol Tartrate (Lopressor Tab*) 12.5 mg PO BID [facility] Last Admin: 09/23/17 10:52 Dose: Not Given Morphine Sulfate (Ms Contin(*)) 60 mg PO Q12HR [facility] Last Admin: 09/23/17 10:50 Dose: 60 mg Multivitamins (Theragran Tab*) 1 tab PO DAILY [facility] Last Admin: 09/23/17 10:51 Dose: 1 tab Omeprazole (Prilosec Cap*) 20 mg PO BID@0730,1630 [facility] Last Admin: 09/23/17 10:50 Dose: 20 mg Pharmacy Profile Note (Fentanyl Patch Check Q Shift) 1 note N/A 0700,1900 [facility] Last Admin: 09/23/17 06:45 Dose: 1 note Polyvinyl Alcohol (Polyvinyl Alcohol 1.4% Opth*) 2 drop BOTH EYES DAILY PRN PRN Reason: DRY EYE Pregabalin (Lyrica Cap(*)) 25 mg PO BID [facility] Last Admin: 09/23/17 10:49 Dose: 25 mg Saliva Substitute (Biotene Moisturizing Mouth (Nf)) [address] [facility]; Protocol Last Admin: 09/23/17 10:52 Dose: 2 spray Home Medications: Home Medications Medication Instructions Recorded Confirmed Type Artificial Tears* 15 ML BTL 2 drop BOTH EYES DAILY PRN 02/05/15 09/06/17 History [Polyvinyl Alcohol 1.4% OPTH*] Furosemide TAB* [Lasix TAB*] 120 mg PO DAILY 02/05/15 09/06/17 History Omeprazole CAP* [PriLOSEC CAP*] 40 mg PO BID 02/05/15 09/06/17 History oxyCODONE TAB* [Roxycodone TAB*] 5 mg PO Q3HR PRN MDD 40 mg 02/05/15 09/06/17 History Pregabalin CAP(*) [Lyrica CAP(*)] 25 mg PO BID 05/25/15 09/06/17 History Loperamide CAP* [Imodium CAP*] 2 mg PO Q4H PRN 06/16/15 09/06/17 History Acetaminophen TAB* [Tylenol TAB*] 650 mg PO Q6H PRN 05/07/17 09/06/17 History Al Hydrox/Mg Hydrox/Vanna BULK* 15 ml PO Q4HR PRN 05/07/17 09/06/17 History [Mylanta - BULK BOT*] Metoprolol Tartrate TAB* 12.5 mg PO BID 05/07/17 09/06/17 History [Lopressor TAB*] Morphine Sulfate [Morphine Sulfate 60 mg PO BID 05/07/17 09/06/17 History ER] Ondansetron ODT TAB* [Zofran 4 MG 8 mg PO TID PRN 05/07/17 09/06/17 History Odt TAB*] Sennosides/Docusate Sodium 2 tab PO BID PRN 05/07/17 09/06/17 History [Senna-S Tablet] Conjugated Estrogens VAG CM* 1 applic VAGINAL MOFR 09/06/17 09/06/17 History [Premarin VAG CREAM*] DULoxetine DR CAP* [Cymbalta CAP*] 20 mg PO DAILY 09/06/17 09/06/17 History Docusate CAP* [Colace Cap*] 200 mg PO DAILY PRN 09/06/17 09/06/17 History Fluoride (Sodium) [Prevident 5000 1.1 % PO BID 09/06/17 09/06/17 History Plus] Saliva Substitute (NF) [Biotene 2 spray PO QAM 09/06/17 09/06/17 History Moisturizing Mouth (NF)] Spironolactone TAB* [Aldactone 25 mg PO BID 09/06/17 09/06/17 History TAB*] fentaNYL PATCH 12 MCG/HR * 12 mcg TRANSDERM Q72H 09/06/17 09/06/17 History [Duragesic Patch 12 Mcg/Hr *] Allergies: Allergies Allergy/AdvReac Type Severity Reaction Status Date / Time No Known Allergies Allergy Verified 06/16/15 05:53 Objective - Vital Signs Vital Signs: Vital Signs 09/22/17 09/22/17 09/22/17 11:32 12:34 13:44 Temperature Pulse Rate Respiratory 16 Rate Blood Pressure 91/54 (mmHg) O2 Sat by Pulse 98 Oximetry 09/22/17 09/22/17 09/22/17 15:10 16:00 16:29 Temperature 98.0 F Pulse Rate 77 78 Respiratory Rate Blood Pressure 86/46 85/51 (mmHg) O2 Sat by Pulse 100 100 100 Oximetry 09/22/17 09/22/17 09/22/17 20:00 20:51 23:19 Temperature 96.6 F Pulse Rate 84 Respiratory 16 16 16 Rate Blood Pressure 105/52 (mmHg) O2 Sat by Pulse 98 Oximetry 09/22/17 09/22/17 09/23/17 23:38 23:39 02:09 Temperature Pulse Rate Respiratory 16 16 Rate Blood Pressure (mmHg) O2 Sat by Pulse 98 Oximetry 09/23/17 09/23/17 09/23/17 04:19 07:15 07:28 Temperature 97.6 F 98.2 F Pulse Rate 82 85 Respiratory 19 14 Rate Blood Pressure 110/60 98/61 (mmHg) O2 Sat by Pulse 100 98 Oximetry 09/23/17 09/23/17 09/23/17 08:00 10:49 10:50 Temperature Pulse Rate Respiratory 16 16 16 Rate Blood Pressure (mmHg) O2 Sat by Pulse 98 Oximetry - Intake and Output Intake and Output: Intake & Output 09/20/17 09/21/17 09/22/17 09/23/17 11:59 11:59 11:59 11:59 Intake Total 520 52 30 730 Output Total 300 0 Balance 220 52 30 730 Weight 134 lb 12.8 oz 131 lb 126 lb 9.6 oz 132 lb 1.6 oz Intake: IV Fluids 250 NS (0.9%) 250 Oral 520 52 30 480 Output: Urine 0 Straight Cath 300 Other: Estimated Void Large Small Small Medium Date of Last Bowel unknown 09/16/17 Movement # Bowel Movements 0 0 0 1 Estimated Stool Amount Small # Voids 1 0 1 1 ADLs: Meal Record Start: 09/06/17 17: 52 Freq: DAILY@0900,1400,1800 Status: Complete Protocol: Created 09/06/17 17:52 System (Rec: 09/06/17 17:52 System IMGED-CS01) Document 09/07/17 09:00 [id number] (Rec: 09/07/17 10:15 ZBW0163 TELE-C03) Document 09/07/17 14:00 HDF7869 (Rec: 09/07/17 14:54 LLS9969 TELE-C03) Document 09/07/17 18:00 GQO5180 (Rec: 09/07/17 18:11 ZUC2461 TELE-C03) Document 09/08/17 09:00 GVV1604 (Rec: 09/08/17 13:45 OYH4925 TELE-C01) Document 09/08/17 13:46 JHH9259 (Rec: 09/08/17 13:47 BKA3342 TELE-C01) Document 09/08/17 18:00 LRE1917 (Rec: 09/08/17 20:21 MFY1815 TELE-C01) Document 09/09/17 09:00 EGT1506 (Rec: 09/09/17 10:53 CRJ8671 TELE-C13) Document 09/09/17 13:43 BXG5623 (Rec: 09/09/17 13:45 YST0799 TELE-C11) Document 09/09/17 18:00 JII0827 (Rec: 09/09/17 21:58 VLA3207 TELE-C13) Document 09/10/17 09:00 ZCC8139 (Rec: 09/10/17 11:38 YTR3668 TELE-C08) Document 09/10/17 14:00 INO0492 (Rec: 09/10/17 14:48 KGE3810 TELE-C08) Document 09/11/17 09:00 GLV6384 (Rec: 09/11/17 09:50 XDA4845 MED-C09) Document 09/11/17 13:34 IZN2558 (Rec: 09/11/17 13:36 DUJ4481 MED-C13) ADLs: Meal Record Start: 09/11/17 21: 50 Freq: Status: Complete Protocol: Created 09/11/17 21:50 AXH8625 (Rec: 09/11/17 21:50 JIC5076 ICU-C12) ADLs: Meal Record Start: 09/13/17 00: 54 Freq: DAILY@0900,1400,1800 Status: Active Protocol: Created 09/13/17 00:54 NIW9492 (Rec: 09/13/17 00:54 BYY2901 ICU-C12) Document 09/13/17 09:00 EQD3442 (Rec: 09/13/17 09:09 JXI9456 MED-C09) Document 09/13/17 14:00 BBB5856 (Rec: 09/13/17 14:19 PGX3899 MED-C11) Document 09/13/17 18:00 QMA9180 (Rec: 09/13/17 19:37 XGF7531 MED-C11) Document 09/14/17 09:00 NXX2758 (Rec: 09/14/17 09:16 KVO2228 MED-C09) Document 09/14/17 13:31 IUK4812 (Rec: 09/14/17 13:38 TWJ3354 MED-C09) Document 09/14/17 17:51 RDC6522 (Rec: 09/14/17 17:51 EEB3819 MED-C09) Document 09/15/17 09:00 GHU6881 (Rec: 09/15/17 14:34 IVE3134 MED-C11) Document 09/15/17 14:00 UIQ2042 (Rec: 09/15/17 14:34 PLL9028 MED-C11) Document 09/15/17 18:00 XXX8597 (Rec: 09/15/17 18:23 WNA7049 MED-C11) Document 09/16/17 09:00 HWE5614 (Rec: 09/16/17 13:54 NEY8679 MED-C07) Document 09/16/17 14:00 AWN2704 (Rec: 09/16/17 16:36 FKR6812 MED-C14) Document 09/16/17 18:00 WNS3798 (Rec: 09/16/17 18:16 HLS7825 MED-C11) Document 09/17/17 09:00 YXM2654 (Rec: 09/17/17 11:20 NSI7196 TELE-M13) Document 09/17/17 14:00 GMR7156 (Rec: 09/17/17 14:02 DVZ2911 MED-C11) Document 09/17/17 18:00 OIU3322 (Rec: 09/17/17 19:46 ZCG1937 MED-C11) Document 09/18/17 09:00 TOX9109 (Rec: 09/18/17 09:45 UMV3551 MED-C09) Document 09/18/17 14:00 TPJ3791 (Rec: 09/18/17 14:57 TZB2326 MED-C09) Document 09/18/17 18:00 JDM9372 (Rec: 09/18/17 18:24 ZRE6727 MED-C11) Document 09/19/17 09:00 OVU8851 (Rec: 09/19/17 10:20 EVD0652 MED-C09) Document 09/19/17 13:46 QRI7204 (Rec: 09/19/17 13:48 BWD2010 MED-C11) Document 09/19/17 18:00 CZJ8245 (Rec: 09/19/17 18:40 KXO4176 MED-C09) Document 09/20/17 09:00 AXA1358 (Rec: 09/20/17 09:04 MXU9131 MED-C09) Document 09/20/17 13:41 IJQ8972 (Rec: 09/20/17 13:41 KBO4771 MED-C09) Document 09/20/17 18:00 NNK3879 (Rec: 09/20/17 18:26 AGA1659 MED-C09) Document 09/21/17 09:00 AWV1536 (Rec: 09/21/17 10:44 FBI0531 MED-C09) Document 09/21/17 13:21 DSH1323 (Rec: 09/21/17 13:21 ZIO4098 MED-C09) Document 09/21/17 18:00 DCY4421 (Rec: 09/21/17 18:51 TTM9553 MED-C09) Document 09/22/17 09:00 OEP5347 (Rec: 09/22/17 09:01 YAW1409 MED-C09) Document 09/22/17 13:42 YGQ5672 (Rec: 09/22/17 13:43 EXW0304 MED-C09) Document 09/22/17 18:00 AND9284 (Rec: 09/22/17 19:04 VUC1318 MED-C04) Document 09/23/17 09:00 KAG8336 (Rec: 09/23/17 10:56 YUI8021 MED-C11) Intake and Output Start: 09/06/17 11: 50 Freq: Status: Cancelled Protocol: Created 09/06/17 11:50 System (Rec: 09/06/17 11:50 System ED-C22) Intake and Output Start: 09/06/17 17: 52 Freq: DAILY@0600,1400,2200 Status: Complete Protocol: Created 09/06/17 17:52 System (Rec: 09/06/17 17:52 System IMGED-CS01) Document 09/07/17 06:00 ZGB2176 (Rec: 09/07/17 06:03 HOF5381 TELE-C05) Document 09/07/17 22:00 FWO4122 (Rec: 09/07/17 22:50 NCE1915 TELE-C03) Document 09/08/17 06:00 EMU8034 (Rec: 09/08/17 06:31 ORP0108 TELE-C01) Document 09/08/17 13:46 PQH9164 (Rec: 09/08/17 13:47 HBU5502 TELE-C01) Document 09/08/17 21:36 ESS6817 (Rec: 09/08/17 21:38 VYT8586 TELE-C03) Document 09/09/17 06:00 QEJ3639 (Rec: 09/09/17 06:20 QHU6095 TELE-C08) Document 09/09/17 13:43 HTP9688 (Rec: 09/09/17 13:45 QAV1195 TELE-C11) Document 09/09/17 22:00 RCK9491 (Rec: 09/09/17 22:16 NZR9047 TELE-C13) Document 09/10/17 06:00 VBL1043 (Rec: 09/10/17 06:18 MTQ3378 TELE-C03) Document 09/10/17 14:00 NTU2085 (Rec: 09/10/17 14:48 FAD5934 TELE-C08) Document 09/10/17 21:23 VCW7065 (Rec: 09/10/17 21:23 OSU9435 MED-C13) Document 09/11/17 06:00 AGH1792 (Rec: 09/11/17 06:34 UYB2069 MED-C26) Document 09/11/17 13:34 YHV6271 (Rec: 09/11/17 13:36 XFP9677 MED-C13) Intake and Output Start: 09/11/17 21: 50 Freq: Q1HR Status: Cancelled Protocol: Created 09/11/17 21:50 ISK6755 (Rec: 09/11/17 21:50 YXO1555 ICU-C12) Intake and Output Start: 09/11/17 23: 52 Freq: 06,14,2200 Status: Active Protocol: Created 09/11/17 23:57 GEJ9236 (Rec: 09/11/17 23:57 BKG ANUSHKA-BG12) Document 09/12/17 05:36 PCR9647 (Rec: 09/12/17 05:36 RCY2132 ISDEMO-M05 ) Document 09/12/17 13:33 JXM9794 (Rec: 09/12/17 13:33 ZXP8128 ICU-C12) Document 09/12/17 14:00 LPH8152 (Rec: 09/12/17 14:03 XPA4604 ISDEMO-M05 ) Document 09/12/17 15:00 HBB2924 (Rec: 09/12/17 15:09 XRI0832 ICU-C15) Document 09/12/17 16:00 FSL2273 (Rec: 09/12/17 16:31 ZXL0545 ICU-C15) Document 09/12/17 17:00 WQX3513 (Rec: 09/12/17 17:36 NKO9251 ICU-C15) Document 09/12/17 18:00 INX7144 (Rec: 09/12/17 19:07 HBH8572 ISDEMO-M05 ) Document 09/12/17 19:00 JHS5870 (Rec: 09/12/17 19:08 IKD6286 ISDEMO-M05 ) Document 09/12/17 20:00 BDU6935 (Rec: 09/12/17 23:09 RCU1643 ICU-C15) Document 09/12/17 21:00 LGQ8218 (Rec: 09/12/17 23:09 QAD5431 ICU-C15) Document 09/12/17 22:00 KLH3031 (Rec: 09/12/17 23:09 OTJ4482 ICU-C15) Document 09/12/17 23:00 XGI7087 (Rec: 09/12/17 23:09 XDQ1669 ICU-C15) Document 09/13/17 00:00 LIB5517 (Rec: 09/13/17 03:11 LDE8791 ICU-C15) Document 09/13/17 05:24 NZG9533 (Rec: 09/13/17 05:25 WEE9657 ICU-C15) Document 09/13/17 14:00 SDW7492 (Rec: 09/13/17 14:23 SEX8156 MED-C02) Document 09/13/17 14:00 QRN3780 (Rec: 09/13/17 14:19 XZU9356 MED-C11) Document 09/13/17 21:48 AAW7761 (Rec: 09/13/17 21:49 QRR0793 MED-C11) Document 09/14/17 06:00 NYR0140 (Rec: 09/14/17 06:37 ATI5207 MED-C09) Document 09/14/17 13:31 NCC0440 (Rec: 09/14/17 13:38 LAB1409 MED-C09) Document 09/14/17 22:00 OGF9802 (Rec: 09/14/17 22:44 PBE3128 MED-C09) Document 09/15/17 05:50 PHI5357 (Rec: 09/15/17 05:56 CBC8152 MED-C09) Document 09/15/17 14:00 UWP2169 (Rec: 09/15/17 14:34 NLC0476 MED-C11) Document 09/15/17 21:38 QAV3914 (Rec: 09/15/17 21:40 JIJ1929 MED-C11) Document 09/16/17 06:00 BNW7125 (Rec: 09/16/17 06:13 TGB1870 MED-C09) Document 09/16/17 16:37 LUR4098 (Rec: 09/16/17 16:37 YHW2813 MED-C14) Document 09/16/17 21:05 CXB8989 (Rec: 09/16/17 21:06 UQF3457 MED-C11) Document 09/17/17 05:55 NQX4474 (Rec: 09/17/17 05:55 LGN8885 MED-C02) Document 09/17/17 13:49 TWN4880 (Rec: 09/17/17 14:01 HKN8572 MED-C11) Document 09/17/17 22:00 PJJ7950 (Rec: 09/17/17 22:25 BBB3558 MED-C11) Document 09/18/17 04:54 SNS8407 (Rec: 09/18/17 04:54 OTM2652 MED-C02) Document 09/18/17 14:00 APY5339 (Rec: 09/18/17 14:57 LUG1371 MED-C09) Document 09/18/17 22:00 UHR6824 (Rec: 09/18/17 22:19 YLQ2762 MED-C11) Document 09/19/17 05:47 ANT5783 (Rec: 09/19/17 05:49 ZOY7409 MED-C09) Document 09/19/17 13:46 UMD3770 (Rec: 09/19/17 13:48 GBJ9795 MED-C11) Document 09/19/17 22:00 MNL3578 (Rec: 09/19/17 22:14 LRU1310 MED-C09) Document 09/20/17 06:00 JMU5098 (Rec: 09/20/17 06:22 TRM6712 MED-C09) Document 09/20/17 14:00 YGC6125 (Rec: 09/20/17 14:23 VXM2524 MED-C09) Document 09/20/17 20:34 YFY5178 (Rec: 09/20/17 20:36 APC1289 MED-C13) Document 09/21/17 05:47 YWH4764 (Rec: 09/21/17 05:48 IIF9086 MED-C09) Document 09/21/17 14:00 SYD0612 (Rec: 09/21/17 14:28 JTI2884 MED-C09) Document 09/21/17 22:00 MIG8266 (Rec: 09/21/17 22:42 ZSR6121 MED-C09) Document 09/22/17 05:20 TJS2181 (Rec: 09/22/17 05:20 HUU0317 MED-C15) Document 07/07/18 13:43 LBO3748 (Rec: 09/22/17 13:44 YHY0070 MED-C09) Document 09/22/17 21:41 WWU7344 (Rec: 09/22/17 21:41 IXU9487 MED-C04) Document 09/23/17 04:37 YPQ0862 (Rec: 09/23/17 04:37 UZV5849 MED-C11) Intake and Output Start: 09/13/17 00: 54 Freq: DAILY@0600,1400,2200 Status: Complete Protocol: Created 09/13/17 00:54 OYZ6631 (Rec: 09/13/17 00:54 JRV6877 ICU-C12) Document 09/13/17 06:00 (Rec: 09/13/17 06:21 MED-M11) - Physical Exam General Physical Exam Comment: She is warm peripherally. She is a sleep and difficult to awaken, though I didn't try hard. General: No Cyanosis, No Anemia, No Jaundice, No Clubbing Skin: Abnormal: Other - hematomas unchanged Lungs and Chest: Yes: Chest Expansion Symetrica, Percussion Note Resonant, Vessicular Breath Sounds, Other - anterior chest only. No: Chest Expansion Full , Crackles, Wheezes Heart Rate and Rhythm: Regular JVP: Elevated Additional Cardiovascular: Yes: Normal Heart Sounds, Pedal Edema - trace. No: Heart Murmur Abdominal Exam: Yes: Soft, Bowel Sounds Present. No: Distention, Abdominal Tenderness Results - Results Lab Results: Laboratory Results - last 24 hr 09/20/17 09/23/17 09/23/17 06:32 07:29 07:29 WBC 10.3 RBC 3.41 L Hgb 10.6 L Hct 33 L MCV 97 MCH 31 MCHC 32 RDW 17 H Plt Count 233 MPV 10.3 Neut % (Auto) Not Reportable Lymph % (Auto) Not Reportable Tyrrell % (Auto) Not Reportable Eos % (Auto) Not Reportable Baso % (Auto) Not Reportable Absolute Neuts (auto) 8.7 H Absolute Lymphs (auto) 0.9 L Absolute Monos (auto) 0.6 Absolute Eos (auto) 0.1 Absolute Basos (auto) 0 Absolute Nucleated RBC Not Reportable Neutrophils % 82 Lymphocytes % 13 L Monocytes % 5 Eosinophils % 0 Basophils % 0 Nucleated RBC % Not Reportable Abs Neuts (Manual) 8.4 H Abs Lymphs (Manual) 1.3 Abs Monocytes (Manual) 0.5 Absolute Eos (Manual) 0 Abs Basophils (Manual) 0 Nucleated RBCs/100 WBC 34 H Normal RBC Morphology Not Reportable Polychromasia 2+ Anisocytosis 1+ Macrocytosis 1+ Sodium 142 Potassium 4.8 Chloride 102 Carbon Dioxide 32 Anion Gap 8 BUN 36 H Creatinine 1.16 H Est GFR ( Amer) 53.6 Est GFR (Non-Af Amer) 44.3 BUN/Creatinine Ratio 31.0 H Glucose 116 H Calcium 8.2 L Total Bilirubin 5.10 H Direct Bilirubin 2.90 H Indirect Bilirubin 2.2 H AST 27 ALT 14 Alkaline Phosphatase 116 H C-Reactive Protein 121.28 H Total Protein 5.1 L Albumin 3.0 L Globulin 2.1 Albumin/Globulin Ratio 1.4 Blood Type A Positive Antibody Screen Negative Crossmatch See Detail Radiology Results: Patient Name: AILIN WHALEY Medical Record#: [id number] Ordering Physician: Cooper Pichardo MD Acct.#: [id number] : 1930 Age: 86 Sex: F Location: [address] [place] [address] - MEDICAL Exam Date: 09/22/17936 ADM Status: ADM IN Order Information: CHEST AP PORTABLE Accession Number: [id number] CPT: 08322 INDICATION: Pneumonia versus CHF. COMPARISON: Comparison is made with a prior study from September 18, 2017. TECHNIQUE: A portable view of the chest was obtained. FINDINGS: The heart is moderately enlarged and unchanged from the prior exam. There are moderate-sized bilateral pleural effusions present. The effusions obscure both lung bases. There is a small calcific nodule which projects over the right upper lobe suggestive of old granulomatous disease. IMPRESSION: MODERATE SIZE BILATERAL PLEURAL EFFUSIONS AND CARDIOMEGALY, UNCHANGED. <Electronically signed by Dirk Almaraz MD in [place]> 09/22/17 1044 Dictated By: Dirk Almaraz MD Dictated Date/Time: 09/22/17 1044 Transcribed Date/Time: 09/22/17 1042 Copy to: CC:Cooper Pichardo MD; Isidra Beckwith MD; Delvis Hinojosa MD; Allen Cisneros MD; Nichol WINNP; Jessica Farmer DO; Sofia Kincaid MD; Nichelle Mcmillan MD; Erasto Adam MD Imaging - [facility] Imaging - [facility] Imaging - [facility] [address] [address] ph ([phone]) ph ([phone]) ph ([phone]) 1 of 1 Assessment - Problem List Assessment: Patient Problems Anemia (Acute) CRP elevated (Acute) Hematoma (Acute) History of total right hip arthroplasty (Acute) Hyperbilirubinemia (Acute) Hypotension (Acute) Oliguria (Acute) Acute diastolic (congestive) heart failure (Chronic) Amyloidosis (Chronic) Disorientation (Chronic) Frailty (Chronic) Hyperlipidemia (Chronic) IgA myeloma (Chronic) Personal history of gastric ulcer (Chronic) 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 I have no idea as to her urine output. Acute diastolic (congestive) heart failure (Chronic) I am concerned we may now move to worsening CHF. I note she has marked pleural effusions on yesterday's chest X-ray. We are on a tight-rope between volume overload and insufficient volume. 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 Adam Disorientation (Chronic) I suspect it is the opioids that are causing her to sleep. I will talk with nursing about checking her O2 frequently in case of opioid induced respiratory failure Frailty (Chronic) ongoing Hyperlipidemia (Chronic) Personal history of gastric ulcer (Chronic) DNR (do not resuscitate) (Chronic 12/10/14) GERD (gastroesophageal reflux disease) (Chronic 12/10/14) inactive. Hypertension (Chronic 12/10/14) inactive Phone call with Sebastien Whaley (son) We discussed her situation. He agrees this is a difficult situation - her health care proxy states no major acute medical interventions. He was surprised that yesterday she was expressing that she wanted us to strive to keep her alive. He guesses she was not fully aware of her situation. As her proxy he thinks we should continue to tread the difficult path of keeping her comfortable and adjusting her medication to maintain her within the bounds that conservative medicine can keep her. However , he doesn't think we should reverse opioids or do anything more aggressive. He understands she has a poor prognosis (though this has been the case for some time, it appears worse at present).
[2017-09-23] MEDS: Furosemide TAB* 20 MG PO SCH (19:20)
[2017-09-23] MEDS: Spironolactone TAB* 25 MG PO SCH (21:50)
[2017-09-24] MEDS: Morphine TAB Extended Release (*) 15 MG TAB.ER PO SCH ×4 (05:32→22:03)
[2017-09-24 06:22] LABS: Hematocrit 34 % (35-47); Hemoglobin 11.1 g/dl (12.0-16.0); Mean Corpuscular HGB Conc 33 g/dl (31-36); Mean Corpuscular Hemoglobin 32 pg (27-31); Mean Corpuscular Volume 98 fL (80-97); Mean Platelet Volume 10.3 um3 (7.4-10.4); Platelet Count 245 10^3/ul (150-450); Red Blood Count 3.44 10^6/ul (4.00-5.40); Red Cell Distribution Width 19 % (10.5-15); White Blood Count 9.3 10^3/ul (3.5-10.8)
[2017-09-24 06:26] LABS: ABS Basophils 0 10^3/ul (0-0.2); ABS Eosinophils 0.1 10^3/ul (0-0.6); ABS Lymphocytes 0.9 10^3/ul (1.0-4.8); ABS Monocytes 0.5 10^3/ul (0-0.8); ABS Neutrophils 7.7 10^3/ul (1.5-7.7); ABS Nucleated RBC 0.9 10^3/ul; Eosinophil % 1.6 % (0-6); Lymphocyte % 9.2 % (25-47); Nucleated Red Blood Cells % 9.1
[2017-09-24 06:41] LABS: EGFR Non-African American 48.6 (>60)
[2017-09-24] MEDS: CMC:Saliva Substitute (NF) 1 SPRAY BTL MT SCH ×2 (09:36→09:48)
[2017-09-24] MEDS: DULoxetine DR CAP* 20 MG CAP.DR PO SCH (09:37)
[2017-09-24] MEDS: Pregabalin CAP(*) 25 MG PO SCH ×2 (09:37→22:00)
[2017-09-24] MEDS: Furosemide TAB* 20 MG PO SCH ×2 (09:37→16:48)
[2017-09-24] MEDS: Magnesium Hydroxide LIQ* 30 ML UDC PO SCH ×3 (09:37→22:05)
[2017-09-24] MEDS: Vitamin THERAPEUTIC TAB PO SCH (09:38)
[2017-09-24] MEDS: Spironolactone TAB* 25 MG PO SCH ×2 (09:38→22:01)
[2017-09-24] MEDS: Metoprolol Tartrate TAB* 25 MG PO SCH ×2 (09:39→21:59)
[2017-09-24] MEDS: Omeprazole CAP* 20 MG PO SCH ×2 (09:39→16:48)
[2017-09-24] MEDS: Docusate CAP* 100 MG PO SCH ×2 (09:39→22:05)
--- NOTE | 2017-09-24 11:19 | PN ---
Progress Note - Progress Note Date of Service: 09/24/17 SOAP: Subjective: []Patient seen at bedside. She is sleepy though does arouse to verbal stimuli. She does not have any complaints today. Objective: [] Vital Signs Temp 97.4 F 09/24/17 03:15 Pulse 86 09/24/17 03:15 Resp 14 09/24/17 10:59 BP 90/57 09/24/17 03:15 Pulse Ox 93 09/24/17 07:47 Intake & Output 09/23/17 09/24/17 09/24/17 18:59 06:59 18:59 Intake Total 50 15 Balance 50 15 Intake: Oral 50 15 Other: Estimated Void Medium Date of Last Bowel 09/23/17 Movement # Bowel Movements 1 Estimated Stool Amount Medium # Voids 2 3 Laboratory Last Values WBC 9.3 10^3/ul (3.5-10.8) 09/24/17 05:42 RBC 3.44 10^6/ul (4.00-5.40) L 09/24/17 05:42 RBC (Retic) 2.79 10^6/ul (4.6-6.2) L 09/17/17 06:46 Hgb 11.1 g/dl (12.0-16.0) L 09/24/17 05:42 Hct 34 % (35-47) L 09/24/17 05:42 HCT (Retic) 27 % (35-47) L 09/17/17 06:46 MCV 98 fL (80-97) H 09/24/17 05:42 MCH 32 pg (27-31) H 09/24/17 05:42 MCHC 33 g/dl (31-36) 09/24/17 05:42 RDW 19 % (10.5-15) H 09/24/17 05:42 Plt Count 245 10^3/ul (150-450) 09/24/17 05:42 MPV 10.3 um3 (7.4-10.4) 09/24/17 05:42 Neut % (Auto) 83.1 % (38-83) H 09/24/17 05:42 Lymph % (Auto) 9.2 % (25-47) L 09/24/17 05:42 [place] % (Auto) 5.8 % (0-7) 09/24/17 05:42 Eos % (Auto) 1.6 % (0-6) 09/24/17 05:42 Baso % (Auto) 0.3 % (0-2) 09/24/17 05:42 Absolute Neuts (auto) 7.7 10^3/ul (1.5-7.7) 09/24/17 05:42 Absolute Lymphs (auto) 0.9 10^3/ul (1.0-4.8) L 09/24/17 05:42 Absolute Monos (auto) 0.5 10^3/ul (0-0.8) 09/24/17 05:42 Absolute Eos (auto) 0.1 10^3/ul (0-0.6) 09/24/17 05:42 Absolute Basos (auto) 0 10^3/ul (0-0.2) 09/24/17 05:42 Absolute Nucleated RBC 0.9 10^3/ul 09/24/17 05:42 Immature Gran % 2 % (0-9) 09/20/17 06:32 Neutrophils % 82 % (38-83) 09/23/17 07:29 Lymphocytes % 13 % (25-47) L 09/23/17 07:29 Reactive Lymphs % 1 % (0-6) 09/22/17 07:48 Monocytes % 5 % (0-7) 09/23/17 07:29 Eosinophils % 0 % (0-6) 09/23/17 07:29 Basophils % 0 % (0-2) 09/23/17 07:29 Metamyelocytes % 1 % (0-2) 09/20/17 06:32 Myelocytes % 1 % (0-1) 09/20/17 06:32 Nucleated RBC % 9.1 09/24/17 05:42 Abs Neuts (Manual) 8.4 10^3/ul (1.5-7.7) H 09/23/17 07:29 Abs Lymphs (Manual) 1.3 10^3/ul (1.0-4.8) 09/23/17 07:29 Abs Monocytes (Manual) 0.5 10^3/ul (0-0.8) 09/23/17 07:29 Absolute Eos (Manual) 0 10^3/ul (0-0.6) 09/23/17 07:29 Abs Basophils (Manual) 0 10^3/ul (0-0.2) 09/23/17 07:29 Nucleated RBCs/100 WBC 34 (0-0) H 09/23/17 07:29 Normal RBC Morphology Not Reportable 09/23/17 07:29 Polychromasia 2+ 09/23/17 07:29 Hypochromasia 1+ 09/22/17 07:48 Anisocytosis 1+ 09/23/17 07:29 Macrocytosis 1+ 09/23/17 07:29 Schistocytes Present 09/19/17 10:53 Retic Count, Calc 6.7 % (0.5-1.5) H 09/17/17 06:46 Corrected Retic Count 4.0 % (0.5-1.5) H 09/17/17 06:46 Retic Shift Factor 2.0 09/17/17 06:46 Retic Production Index 2.00 09/17/17 06:46 Immature Retic Fraction 0.70 09/17/17 06:46 Mean Retic Volume 152.4 09/17/17 06:46 Haptoglobin 71 mg/dL (30 - 200) 09/18/17 09:46 Plt Count 296 10^3/ul (150-450) 09/19/17 10:53 INR (Anticoag Therapy) 1.16 (0.77-1.02) H 09/21/17 05:58 APTT 39.0 seconds (26.0-36.3) H 09/21/17 13:45 Fibrinogen 391.1 mg/dL (110.8-404.3) 09/19/17 10:53 D-Dimer, Quantitative 505 ng/mL (Less Than 230) H 09/19/17 10:53 Heparin Anti-Xa Activ 0.65 IU/mL 09/20/17 09:40 Factor X 80 % (70 - 150) 09/18/17 09:46 Coag Pathologist Com 09/19/17 10:53 Patient Temperature Not Reportable 09/12/17 12:08 ABG pH 7.57 (7.35-7.45) H 09/12/17 12:08 ABG pH (Temp Correct) Not Reportable 09/12/17 12:08 ABG pCO2 27 mmHg (35-45) L 09/12/17 12:08 ABG pCO2 (Temp Corrct Not Reportable 09/12/17 12:08 ABG pO2 99 mmHg (80-100) 09/12/17 12:08 ABG pO2 (Temp Correct Not Reportable 09/12/17 12:08 ABG HCO3 28.0 mmol/L (19-31) 09/12/17 12:08 ABG O2 Saturation 98.2 % (95-98) H 09/12/17 12:08 ABG Base Excess 4.0 (-2.0-2.0) H 09/12/17 12:08 Respiration Rate Not Reportable 09/12/17 12:08 O2 Delivery Device vent 09/12/17 12:08 Ventilator Type Not Reportable 09/12/17 12:08 Vent Mode cpap 09/12/17 12:08 FiO2 40 09/12/17 12:08 Inspiratory Time Not Reportable 09/12/17 12:08 PEEP 5 09/12/17 12:08 Pressure Support 10 09/12/17 12:08 Pressure Control Not Reportable 09/12/17 12:08 EPAP Not Reportable 09/12/17 12:08 IPAP Not Reportable 09/12/17 12:08 BiPAP Not Reportable 09/12/17 12:08 Sodium 144 mmol/L (135-145) 09/24/17 05:42 Potassium 4.3 mmol/L (3.5-5.0) 09/24/17 05:42 Chloride 102 mmol/L (101-111) 09/24/17 05:42 Carbon Dioxide 33 mmol/L (22-32) H 09/24/17 05:42 Anion Gap 9 mmol/L (2-11) 09/24/17 05:42 BUN 31 mg/dL (6-24) H 09/24/17 05:42 Creatinine 1.07 mg/dL (0.51-0.95) H 09/24/17 05:42 Est GFR ( Amer) 58.8 (>60) 09/24/17 05:42 Est GFR (Non-Af Amer) 48.6 (>60) 09/24/17 05:42 BUN/Creatinine Ratio 29.0 (8-20) H 09/24/17 05:42 Glucose 107 mg/dL (70-100) H 09/24/17 05:42 Hemoglobin A1c 7.3 % (4.0-5.6) H 09/11/17 10:34 Lactic Acid 1.9 mmol/L (0.5-2.0) 09/06/17 12:25 Calcium 8.3 mg/dL (8.6-10.3) L 09/24/17 05:42 Phosphorus 3.0 mg/dL (2.5-5.0) 09/20/17 06:32 Magnesium 2.5 mg/dL (1.9-2.7) 09/15/17 06:39 Iron 71 ug/dL (50-212) 09/17/17 06:32 TIBC 232 mcg/dL (250-450) L 09/17/17 06:32 % Saturation 31 % (15-55) 09/17/17 06:32 Unsat Iron Binding 161 ug/dL 09/17/17 06:32 Transferrin 166 mg/dL (203-362) L 09/17/17 06:32 Ferritin 480.3 ng/mL (11-307) H 09/17/17 06:32 Total Bilirubin 5.20 mg/dL (0.2-1.0) H 09/24/17 05:42 Direct Bilirubin 2.80 mg/dL (0.03-0.18) H 09/24/17 05:42 Indirect Bilirubin 2.4 mg/dL (0.3-1.0) H 09/24/17 05:42 AST 22 U/L (13-39) 09/24/17 05:42 ALT 13 U/L (7-52) 09/24/17 05:42 Alkaline Phosphatase 97 U/L (34-104) 09/24/17 05:42 Ammonia 32 mcmol/L (16-53) 09/19/17 10:54 Lactate Dehydrogenase 413 U/L (140-271) H 09/19/17 10:54 Troponin I 0.14 ng/mL (<0.04) H* 09/11/17 10:34 C-Reactive Protein 88.53 mg/L (<8.01) H 09/24/17 05:42 B-Natriuretic Peptide 1650 pg/mL (-100) H 09/21/17 05:58 Total Protein 4.9 g/dL (6.4-8.9) L 09/24/17 05:42 Total Protein (PEP) 6.3 g/dL (6.3 - 7.9) 09/07/17 06:31 Albumin 2.9 g/dL (3.2-5.2) L 09/24/17 05:42 Albumin (PEP) 3.2 g/dL (3.4-4.7) L 09/07/17 06:31 Globulin 2.0 g/dL (2-4) 09/24/17 05:42 Albumin/Globulin Ratio 1.5 (1-3) 09/24/17 05:42 Albumin/Globulin (PEP) 1.05 09/07/17 06:31 Prealbumin 7 mg/dL (18-38) L 09/22/17 07:47 Zzogj-4-Ztgpfwizz 0.5 g/dL (0.1-0.3) H 09/07/17 06:31 Naneh-1-Alhujpubh 1.1 g/dL (0.6-1.0) H 09/07/17 06:31 Egld-2-Olaprcbl 0.9 g/dL (0.7-1.2) 09/07/17 06:31 Gamma Globulins 0.6 g/dL (0.6-1.6) 09/07/17 06:31 M-Wang Not Reportable 09/07/17 06:31 M-Wang 2 Not Reportable 09/07/17 06:31 PEP Impression See comment 09/07/17 06:31 Lipase < 10 U/L (11.0-82.0) L 09/06/17 12:25 Vitamin B12 > 1450 pg/mL (180-914) H 09/17/17 06:32 Procalcitonin 0.2 ng/mL (<0.6) 09/20/17 06:32 TSH 3.65 mcIU/mL (0.34-5.60) 09/19/17 10:54 Urine Color Shi 09/19/17 12:15 Urine Appearance Clear 09/19/17 12:15 Urine pH 5.0 (5-9) 09/19/17 12:15 Ur Specific [place] 1.019 (1.010-1.030) 09/19/17 12:15 Urine Protein 2+(100 mg/dl) (Negative) A 09/19/17 12:15 Urine Ketones Trace (Negative) A 09/19/17 12:15 Urine Blood Negative (Negative) 09/19/17 12:15 Urine Nitrate Negative (Negative) 09/19/17 12:15 Urine Bilirubin Negative (Negative) 09/19/17 12:15 Urine Urobilinogen Negative (Negative) 09/19/17 12:15 Ur Leukocyte Esterase Negative (Negative) 09/19/17 12:15 Urine WBC (Auto) Trace(0-5/hpf) (Absent) 09/19/17 12:15 Urine RBC (Auto) Absent (Absent) 09/19/17 12:15 Urine Bacteria 1+ (Absent) A 09/19/17 12:15 Urine Glucose Negative (Negative) 09/19/17 12:15 Digoxin 2.0 ng/ml (0.8-2.0) 09/11/17 10:34 IgG 583 mg/dL (767 - 1590) L 09/07/17 06:31 IgA 115 mg/dL (61 - 356) 09/07/17 06:31 IgM 61 mg/dL (37 - 286) 09/07/17 06:31 [place] Light Chain 1.31 mg/dL 09/07/17 06:31 Lambda Light Chain 3.75 mg/dL H 09/07/17 06:31 [place]/Lambda Ratio 0.3493 09/07/17 06:31 Blood Type A Positive 09/20/17 06:32 Antibody Screen Negative 09/20/17 06:32 Direct Antiglob Test Negative 09/17/17 06:46 Crossmatch See Detail 09/20/17 06:32 General: Well appearing, NAD RLE: Dressing CDI with foam tape, no surorunding erythema. Thigh is soft. DF/PF intact. 2+ DP pulse BL calves with 1+ edema. No erythema or palpable cords. Toes purple discoloration which is symmetric and unchanged from admission Assessment: [] POD #13 Right hip hemiarthroplasty. Plan: - Anticoag held per intramuscular hematoma per hematology - D/C when medically stable - Follow up with Dr. Hinojosa in the office 2 weeks s/p surgery, if still in house, staple removal tomorrow - WBAT post hip precautions- cont physical therapy as able - Dressing change once daily by nursing. Use FOAM TAPE not paper tape.
[2017-09-25 07:45] LABS: Hematocrit 34 % (35-47); Mean Corpuscular HGB Conc 33 g/dl (31-36); Mean Corpuscular Hemoglobin 32 pg (27-31); Mean Corpuscular Volume 98 fL (80-97); Mean Platelet Volume 10.1 um3 (7.4-10.4); Platelet Count 242 10^3/ul (150-450); Red Blood Count 3.42 10^6/ul (4.00-5.40); Red Cell Distribution Width 23 % (10.5-15); White Blood Count 10.3 10^3/ul (3.5-10.8)
[2017-09-25 08:00] LABS: EGFR Non-African American 63.4 (>60)
[2017-09-25] MEDS: Pregabalin CAP(*) 25 MG PO SCH (09:11)
[2017-09-25] MEDS: Metoprolol Tartrate TAB* 25 MG PO SCH (09:11)
[2017-09-25] MEDS: Vitamin THERAPEUTIC TAB PO SCH (09:11)
[2017-09-25] MEDS: Docusate CAP* 100 MG PO SCH (09:12)
[2017-09-25] MEDS: DULoxetine DR CAP* 20 MG CAP.DR PO SCH (09:12)
[2017-09-25] MEDS: Omeprazole CAP* 20 MG PO SCH (09:12)
[2017-09-25] MEDS: Spironolactone TAB* 25 MG PO SCH (09:13)
[2017-09-25] MEDS: Furosemide TAB* 20 MG PO SCH (09:13)
[2017-09-25] MEDS: Morphine TAB Extended Release (*) 15 MG TAB.ER PO SCH (09:14)
[2017-09-25] MEDS: Magnesium Hydroxide LIQ* 30 ML UDC PO SCH (09:15)
[2017-09-25] MEDS: CMC:Saliva Substitute (NF) 1 SPRAY BTL MT SCH (09:19)
--- NOTE | 2017-09-25 10:27 | TRS ---
CC: [facility]; Dr. Adam * DATE OF ADMISSION: 09/06/2017. DATE OF TRANSFER: 09/25/2017. TRANSFER DIAGNOSES: 1. Right hip fracture. 2. Atrial flutter. 3. Postoperative anemia due to bleeding. 4. Jaundice likely due to amiodarone. 5. Diastolic heart failure. 6. History of multiple myeloma, amyloidosis. 7. Poor nutrition. 8. Hypophosphatemia, corrected. 9. Postoperative delirium. 10. Urinary retention, resolved. 11. Hypokalemia, resolved. 12. Postoperative respiratory insufficiency, intubation. 13. Type 2 diabetes mellitus with hemoglobin A1c of 7.3 percent. 14. Frailty. 15. History of gastroesophageal reflux disease. 16. Constipation. 17. Stress myocardial ischemia. HISTORY: Fabiola Robledo is an 86-year-old woman admitted with a right hip fracture after falling in the bathroom in the half-way at [facility]. Please see the dictated admission note for details of the present illness, past medical history, family history, social and personal history, review of systems, and physical examination. LABORATORY DATA: See hospital records for all the details of her labs. At the time of admission on September 06: CBC: WBC 11.6, H and H 16/48, MCV 92, plt 367. Hemoglobin went as low as 7.8 on September 18, was 11 at the time of discharge. White count went up as high as 18.3 on September 20, was 10.3 at the time of discharge. INR 1.17, PTT 32.7 at the time of admission. ABG's on September 12: pH 7.57, PCO2 27, PO2 99 on CPAP, Fi02 40%, PEEP 5, pressure support 10. Chemistries on admission: Sodium 133, potassium 4.6, chloride 93, CO2 28, BUN and creatinine 68/1.39, glucose 153, lactic acid 1.9, total bilirubin 1.8, alk phos 262, C-reactive protein 79.77, BNP 705, rest of her comprehensive metabolic panel was abnormal for glucose 153. TSH normal at 2.94. Troponin I 0.07, serial troponins 0.08, 0.11, 0.09, 0.30, 0.14 on September 11. Serial BNP's went up as high as 2010 on September 08, down to 822 on September 11, was 1650 on September 21. Hemoglobin A1c was 7.3%. Quantitative immunoglobin: IgG 583, IgM 61 , IgA 115. Light chains: [place] 1.31, lambda 3.75, ratio 0.3493. Urinalysis on admission was normal, on September 19 2+ protein. Digoxin levels were 1.3 on September 07, 2.0 on September 09, 2.2 on September 10, 2.0 on September 11. MRSA nasal screens were negative. Urine culture on September 19 was no growth. Blood was A positive. Four units were transfused during her admission. IMAGING: Please see attached reports. Right hip x-ray showed a fracture. Chest x-ray showed progressive pleural effusions. EKG on admission showed atrial flutter with variable block, nonspecific T-wave changes. EKG on September 09 showed sinus rhythm. The patient had Cardiology, Orthopedic, Intensive Care, and Oncology consultations during her admission. HOSPITAL COURSE: The patient was initially admitted with a right hip fracture. Her usual medications were continued. She was initially monitored. It was noted that she was in atrial flutter. Her family came up from [place], son Sebastien. Multiple conversations were had to decide what the eventual treatment should be for her hip. She decided to go with surgery, hemiarthroplasty. Dr. Adam did not feel her labs suggested that she had imminent due to her multiple myeloma/amyloidosis. She was started on Amiodarone, converted to normal sinus rhythm. It was noted that she is diabetic. This was a new diagnosis. On September 11, she underwent right hip hemiarthroplasty by Dr. Hinojosa. Post-operatively she was intubated, sedated on a Propofol drip. She was seen in consultation by the testing machine operator. He was able to extubate her. She became delirious postoperatively. This gradually cleared. She became anemic due to bleeding into the pelvis and her bilirubin went up. It was felt likely a combination of the postoperative anemia, mobilization of the blood, and possibly due to Amiodarone. This was eventually stopped. She had postoperative hypophosphatemia which was repleted. She had hypotension. She received fluids. She had a Ochoa catheter for a time. She had poor p.o. intake. When it was felt that the bilirubin elevation/jaundice was due to Amiodarone, this was discontinued. She remained in sinus rhythm, to be determined whether or not this will remain. She was transfused for anemia. She had fairly little pain, maintained on a lower dose of long-acting Morphine, at this point 45 mg every 12 hours and she is not currently on a Fentanyl patch which she had been prior to admission. It was felt that the narcotics might be making her lethargic. She received some physical therapy, but because of her confusion, she really did not participate much. She did get out of bed on the day prior to discharge. She developed quite extensive edema due to her diastolic heart failure, IV fluids. Her diuretics were adjusted and she was able to diurese somewhat by the time of discharge. CT scan did show hematomas in her pelvic musculature which was thought to be the cause of her anemia. Enoxaparin was discontinued because of this. At the time of discharge, with regards to her anemia, her H and H is stable. Her bilirubin is coming down slightly. Her pain control appears adequate. Diastolic heart failure, she has less edema. She is to continue PT for hip fracture. With regards to her atrial flutter, she is remaining in normal sinus rhythm. Her nutrition is poor. I hope she eats better when she gets back to [facility] and they are going to concentrate on feeding her. At the time of discharge, she is to be on a regular diet. She is to get up with assistance, to receive physical therapy. Blood tests to be done on 2017, Sunday, are to be a CBC, CMP, BNP. MEDICATIONS: At the time of discharge are to be: 1. Omeprazole 40 mg twice a day. 2. Senna S 8.6 mg two daily. 3. Oxycodone 5 mg p.o. q.3 hours prn moderate pain and 10 mg prn severe pain. 4. Furosemide 120 mg daily. 5. Morphine extended release 45 mg p.o. q.12 hours. 6. Spironolactone 12.5 mg b.i.d. 7. Metoprolol 12.5 mg b.i.d. 8. Biotene spray two sprays daily. 9. Artificial Tears two drops ou prn dry eyes. 10. Premarin cream small amount vaginally twice a week. 11. Lyrica 25 mg twice daily. 12. Duloxetine 20 mg daily. 13. House orders for constipation and diarrhea. 14. Acetaminophen 650 mg p.o. q.6 hours prn mild pain. 15. Docusate 100 mg p.o. b.i.d. 16. Stool softener. She is DNR. She has a MOLST form. Son Sebastien notified of discharge. Manoj will need to be removed in 2 days. She will follow up with orthopedics in 1 month. [id number]/[facility] #: [id number] [facility] HOSPITALPalmira
[2017-09-25 11:54] VITALS: BP 96/57
--- NOTE | 2017-09-25 13:43 | PN ---
Progress Note - Progress Note Date of Service: 09/25/17 SOAP: Subjective: []Patient seen at bedside. She is groaning stating she is in pain, does not answer my questions. Objective: []General: Well appearing, NAD RLE: Dressing and incision CDI with foam tape, no surrounding erythema. removed one staple distally and one middle of incision, wound edges require further healing prior to removal of rest of alexander. Thigh is soft. DF/PF intact. 2+ DP pulse BL calves with 1+ edema. No erythema or palpable cords. Toes purple discoloration which is symmetric and unchanged from admission Vital Signs Temp 97.9 F 09/25/17 11:13 Pulse 80 09/25/17 11:13 Resp 18 09/25/17 11:25 BP 96/57 09/25/17 11:13 Pulse Ox 99 09/25/17 11:13 Intake & Output 09/24/17 09/25/17 09/25/17 18:59 06:59 18:59 Intake Total 125 10 15 Balance 125 10 15 Weight 120 lb 12.8 oz Intake: Oral 125 10 15 Other: Estimated Void Medium Large # Bowel Movements 0 0 # Voids 3 0 Laboratory Last Values WBC 10.3 10^3/ul (3.5-10.8) 09/25/17 07:18 RBC 3.42 10^6/ul (4.00-5.40) L 09/25/17 07:18 RBC (Retic) 2.79 10^6/ul (4.6-6.2) L 09/17/17 06:46 Hgb 11.0 g/dl (12.0-16.0) L 09/25/17 07:18 Hct 34 % (35-47) L 09/25/17 07:18 HCT (Retic) 27 % (35-47) L 09/17/17 06:46 MCV 98 fL (80-97) H 09/25/17 07:18 MCH 32 pg (27-31) H 09/25/17 07:18 MCHC 33 g/dl (31-36) 09/25/17 07:18 RDW 23 % (10.5-15) H 09/25/17 07:18 Plt Count 242 10^3/ul (150-450) 09/25/17 07:18 MPV 10.1 um3 (7.4-10.4) 09/25/17 07:18 Neut % (Auto) 83.1 % (38-83) H 09/24/17 05:42 Lymph % (Auto) 9.2 % (25-47) L 09/24/17 05:42 [place] % (Auto) 5.8 % (0-7) 09/24/17 05:42 Eos % (Auto) 1.6 % (0-6) 09/24/17 05:42 Baso % (Auto) 0.3 % (0-2) 09/24/17 05:42 Absolute Neuts (auto) 7.7 10^3/ul (1.5-7.7) 09/24/17 05:42 Absolute Lymphs (auto) 0.9 10^3/ul (1.0-4.8) L 09/24/17 05:42 Absolute Monos (auto) 0.5 10^3/ul (0-0.8) 09/24/17 05:42 Absolute Eos (auto) 0.1 10^3/ul (0-0.6) 09/24/17 05:42 Absolute Basos (auto) 0 10^3/ul (0-0.2) 09/24/17 05:42 Absolute Nucleated RBC 0.9 10^3/ul 09/24/17 05:42 Immature Gran % 2 % (0-9) 09/20/17 06:32 Neutrophils % 82 % (38-83) 09/23/17 07:29 Lymphocytes % 13 % (25-47) L 09/23/17 07:29 Reactive Lymphs % 1 % (0-6) 09/22/17 07:48 Monocytes % 5 % (0-7) 09/23/17 07:29 Eosinophils % 0 % (0-6) 09/23/17 07:29 Basophils % 0 % (0-2) 09/23/17 07:29 Metamyelocytes % 1 % (0-2) 09/20/17 06:32 Myelocytes % 1 % (0-1) 09/20/17 06:32 Nucleated RBC % 9.1 09/24/17 05:42 Abs Neuts (Manual) 8.4 10^3/ul (1.5-7.7) H 09/23/17 07:29 Abs Lymphs (Manual) 1.3 10^3/ul (1.0-4.8) 09/23/17 07:29 Abs Monocytes (Manual) 0.5 10^3/ul (0-0.8) 09/23/17 07:29 Absolute Eos (Manual) 0 10^3/ul (0-0.6) 09/23/17 07:29 Abs Basophils (Manual) 0 10^3/ul (0-0.2) 09/23/17 07:29 Nucleated RBCs/100 WBC 34 (0-0) H 09/23/17 07:29 Normal RBC Morphology Not Reportable 09/23/17 07:29 Polychromasia 2+ 09/23/17 07:29 Hypochromasia 1+ 09/22/17 07:48 Anisocytosis 1+ 09/23/17 07:29 Macrocytosis 1+ 09/23/17 07:29 Schistocytes Present 09/19/17 10:53 Retic Count, Calc 6.7 % (0.5-1.5) H 09/17/17 06:46 Corrected Retic Count 4.0 % (0.5-1.5) H 09/17/17 06:46 Retic Shift Factor 2.0 09/17/17 06:46 Retic Production Index 2.00 09/17/17 06:46 Immature Retic Fraction 0.70 09/17/17 06:46 Mean Retic Volume 152.4 09/17/17 06:46 Haptoglobin 71 mg/dL (30 - 200) 09/18/17 09:46 Plt Count 296 10^3/ul (150-450) 09/19/17 10:53 INR (Anticoag Therapy) 1.16 (0.77-1.02) H 09/21/17 05:58 APTT 39.0 seconds (26.0-36.3) H 09/21/17 13:45 Fibrinogen 391.1 mg/dL (110.8-404.3) 09/19/17 10:53 D-Dimer, Quantitative 505 ng/mL (Less Than 230) H 09/19/17 10:53 Heparin Anti-Xa Activ 0.65 IU/mL 09/20/17 09:40 Factor X 80 % (70 - 150) 09/18/17 09:46 Coag Pathologist Com 09/19/17 10:53 Patient Temperature Not Reportable 09/12/17 12:08 ABG pH 7.57 (7.35-7.45) H 09/12/17 12:08 ABG pH (Temp Correct) Not Reportable 09/12/17 12:08 ABG pCO2 27 mmHg (35-45) L 09/12/17 12:08 ABG pCO2 (Temp Corrct Not Reportable 09/12/17 12:08 ABG pO2 99 mmHg (80-100) 09/12/17 12:08 ABG pO2 (Temp Correct Not Reportable 09/12/17 12:08 ABG HCO3 28.0 mmol/L (19-31) 09/12/17 12:08 ABG O2 Saturation 98.2 % (95-98) H 09/12/17 12:08 ABG Base Excess 4.0 (-2.0-2.0) H 09/12/17 12:08 Respiration Rate Not Reportable 09/12/17 12:08 O2 Delivery Device vent 09/12/17 12:08 Ventilator Type Not Reportable 09/12/17 12:08 Vent Mode cpap 09/12/17 12:08 FiO2 40 09/12/17 12:08 Inspiratory Time Not Reportable 09/12/17 12:08 PEEP 5 09/12/17 12:08 Pressure Support 10 09/12/17 12:08 Pressure Control Not Reportable 09/12/17 12:08 EPAP Not Reportable 09/12/17 12:08 IPAP Not Reportable 09/12/17 12:08 BiPAP Not Reportable 09/12/17 12:08 Sodium 141 mmol/L (135-145) 09/25/17 07:18 Potassium 3.8 mmol/L (3.5-5.0) 09/25/17 07:18 Chloride 100 mmol/L (101-111) L 09/25/17 07:18 Carbon Dioxide 36 mmol/L (22-32) H 09/25/17 07:18 Anion Gap 5 mmol/L (2-11) 09/25/17 07:18 BUN 26 mg/dL (6-24) H 09/25/17 07:18 Creatinine 0.85 mg/dL (0.51-0.95) 09/25/17 07:18 Est GFR ( Amer) 76.7 (>60) 09/25/17 07:18 Est GFR (Non-Af Amer) 63.4 (>60) 09/25/17 07:18 BUN/Creatinine Ratio 30.6 (8-20) H 09/25/17 07:18 Glucose 96 mg/dL (70-100) 09/25/17 07:18 Hemoglobin A1c 7.3 % (4.0-5.6) H 09/11/17 10:34 Lactic Acid 1.9 mmol/L (0.5-2.0) 09/06/17 12:25 Calcium 8.3 mg/dL (8.6-10.3) L 09/25/17 07:18 Phosphorus 3.0 mg/dL (2.5-5.0) 09/20/17 06:32 Magnesium 2.5 mg/dL (1.9-2.7) 09/15/17 06:39 Iron 71 ug/dL (50-212) 09/17/17 06:32 TIBC 232 mcg/dL (250-450) L 09/17/17 06:32 % Saturation 31 % (15-55) 09/17/17 06:32 Unsat Iron Binding 161 ug/dL 09/17/17 06:32 Transferrin 166 mg/dL (203-362) L 09/17/17 06:32 Ferritin 480.3 ng/mL (11-307) H 09/17/17 06:32 Total Bilirubin 5.00 mg/dL (0.2-1.0) H 09/25/17 07:18 Direct Bilirubin 2.80 mg/dL (0.03-0.18) H 09/24/17 05:42 Indirect Bilirubin 2.4 mg/dL (0.3-1.0) H 09/24/17 05:42 AST 27 U/L (13-39) 09/25/17 07:18 ALT 15 U/L (7-52) 09/25/17 07:18 Alkaline Phosphatase 114 U/L (34-104) H 09/25/17 07:18 Ammonia 32 mcmol/L (16-53) 09/19/17 10:54 Lactate Dehydrogenase 413 U/L (140-271) H 09/19/17 10:54 Troponin I 0.14 ng/mL (<0.04) H* 09/11/17 10:34 C-Reactive Protein 62.74 mg/L (<8.01) H 09/25/17 07:18 B-Natriuretic Peptide 1650 pg/mL (-100) H 09/21/17 05:58 Total Protein 4.9 g/dL (6.4-8.9) L 09/25/17 07:18 Total Protein (PEP) 6.3 g/dL (6.3 - 7.9) 09/07/17 06:31 Albumin 2.8 g/dL (3.2-5.2) L 09/25/17 07:18 Albumin (PEP) 3.2 g/dL (3.4-4.7) L 09/07/17 06:31 Globulin 2.1 g/dL (2-4) 09/25/17 07:18 Albumin/Globulin Ratio 1.3 (1-3) 09/25/17 07:18 Albumin/Globulin (PEP) 1.05 09/07/17 06:31 Prealbumin 10 mg/dL (18-38) L 09/25/17 07:18 Bvhmk-3-Xxvjluyjh 0.5 g/dL (0.1-0.3) H 09/07/17 06:31 Xrlcw-5-Njgigeiye 1.1 g/dL (0.6-1.0) H 09/07/17 06:31 Tmwg-7-Dpeufbcr 0.9 g/dL (0.7-1.2) 09/07/17 06:31 Gamma Globulins 0.6 g/dL (0.6-1.6) 09/07/17 06:31 M-Wang Not Reportable 09/07/17 06:31 M-Wang 2 Not Reportable 09/07/17 06:31 PEP Impression See comment 09/07/17 06:31 Lipase < 10 U/L (11.0-82.0) L 09/06/17 12:25 Vitamin B12 > 1450 pg/mL (180-914) H 09/17/17 06:32 Procalcitonin 0.2 ng/mL (<0.6) 09/20/17 06:32 TSH 3.65 mcIU/mL (0.34-5.60) 09/19/17 10:54 Urine Color Shi 09/19/17 12:15 Urine Appearance Clear 09/19/17 12:15 Urine pH 5.0 (5-9) 09/19/17 12:15 Ur Specific Hodge 1.019 (1.010-1.030) 09/19/17 12:15 Urine Protein 2+(100 mg/dl) (Negative) A 09/19/17 12:15 Urine Ketones Trace (Negative) A 09/19/17 12:15 Urine Blood Negative (Negative) 09/19/17 12:15 Urine Nitrate Negative (Negative) 09/19/17 12:15 Urine Bilirubin Negative (Negative) 09/19/17 12:15 Urine Urobilinogen Negative (Negative) 09/19/17 12:15 Ur Leukocyte Esterase Negative (Negative) 09/19/17 12:15 Urine WBC (Auto) Trace(0-5/hpf) (Absent) 09/19/17 12:15 Urine RBC (Auto) Absent (Absent) 09/19/17 12:15 Urine Bacteria 1+ (Absent) A 09/19/17 12:15 Urine Glucose Negative (Negative) 09/19/17 12:15 Digoxin 2.0 ng/ml (0.8-2.0) 09/11/17 10:34 IgG 583 mg/dL (767 - 1590) L 09/07/17 06:31 IgA 115 mg/dL (61 - 356) 09/07/17 06:31 IgM 61 mg/dL (37 - 286) 09/07/17 06:[address] [place] Light Chain 1.31 mg/dL 09/07/17 06:31 Lambda Light Chain 3.75 mg/dL H 09/07/17 06:[address] [place]/Lambda Ratio 0.3493 09/07/17 06:31 Blood Type A Positive 09/20/17 06:32 Antibody Screen Negative 09/20/17 06:32 Direct Antiglob Test Negative 09/17/17 06:46 Crossmatch See Detail 09/20/17 06:32 Assessment: []POD #14 Right hip hemiarthroplasty. Plan: - Anticoag held per intramuscular hematoma per hematology - D/C today to jv per Dr Beckwith - Follow up with Dr. Hinojosa in 2 days. [place] were not ready to be removed today. - WBAT post hip precautions- cont physical therapy as able - Dressing change once daily by nursing. Use FOAM TAPE not paper tape.
== END 2017-09-25 13:35 | DRG 469 ==
LOC: ED 11:23 → MED 16:36 → MEDTELE 19:55 → MED 09-10 19:45 → ICU 09-11 23:47 → MED 09-13 05:54
PROVIDERS: ADMIT Internal Medicine Geriatric Medicine; ATTEND Internal Medicine Geriatric Medicine
PROC: 5A1935Z Respiratory Ventilation, Less than 24 Consecutive Hours (ICD-10-PCS; 2017-09-11)
PROC: 0BH17EZ Insertion of Endotracheal Airway into Trachea, Via Natural or Artificial Opening (ICD-10-PCS; 2017-09-11)
PROC: 02HV33Z Insertion of Infusion Device into Superior Vena Cava, Percutaneous Approach (ICD-10-PCS; 2017-09-11)
PROC: 0SRR01Z Replacement of Right Hip Joint, Femoral Surface with Metal Synthetic Substitute, Open Approach (ICD-10-PCS; principal; 2017-09-11 16:30)
PROC: 30233N1 Transfusion of Nonautologous Red Blood Cells into Peripheral Vein, Percutaneous Approach (ICD-10-PCS; 2017-09-18)
DX: S72.001A Fracture of unspecified part of neck of right femur, initial encounter for closed fracture (principal); I50.33 Acute on chronic diastolic (congestive) heart failure; J95.2 Acute pulmonary insufficiency following nonthoracic surgery; E85.89 Other amyloidosis; I47.1 Supraventricular tachycardia; I48.92 Unspecified atrial flutter; N17.9 Acute kidney failure, unspecified; D62 Acute posthemorrhagic anemia; R17 Unspecified jaundice; E46 Unspecified protein-calorie malnutrition; F05 Delirium due to known physiological condition; I42.5 Other restrictive cardiomyopathy; C90.01 Multiple myeloma in remission; K21.9 Gastro-esophageal reflux disease without esophagitis; H26.9 Unspecified cataract; M85.80 Other specified disorders of bone density and structure, unspecified site; E78.5 Hyperlipidemia, unspecified; Z66 Do not resuscitate; W18.39XA Other fall on same level, initial encounter; M19.90 Unspecified osteoarthritis, unspecified site; I27.20 Pulmonary hypertension, unspecified; I08.0 Rheumatic disorders of both mitral and aortic valves; M81.0 Age-related osteoporosis without current pathological fracture; T46.2X5A Adverse effect of other antidysrhythmic drugs, initial encounter; E83.39 Other disorders of phosphorus metabolism; R33.9 Retention of urine, unspecified; E87.6 Hypokalemia; R54 Age-related physical debility; I25.9 Chronic ischemic heart disease, unspecified; N94.89 Other specified conditions associated with female genital organs and menstrual cycle; M79.81 Nontraumatic hematoma of soft tissue; E11.22 Type 2 diabetes mellitus with diabetic chronic kidney disease; N18.9 Chronic kidney disease, unspecified; I45.81 Long QT syndrome; I08.3 Combined rheumatic disorders of mitral, aortic and tricuspid valves; I95.81 Postprocedural hypotension; E80.6 Other disorders of bilirubin metabolism; R34 Anuria and oliguria; Z87.01 Personal history of pneumonia (recurrent); Z97.4 Presence of external hearing-aid; Z85.3 Personal history of malignant neoplasm of breast; Z90.710 Acquired absence of both cervix and uterus; Z86.19 Personal history of other infectious and parasitic diseases; Z87.440 Personal history of urinary (tract) infections; Z80.9 Family history of malignant neoplasm, unspecified; Z82.49 Family history of ischemic heart disease and other diseases of the circulatory system; Z86.711 Personal history of pulmonary embolism; Z80.7 Family history of other malignant neoplasms of lymphoid, hematopoietic and related tissues; Z68.20 Body mass index [BMI] 20.0-20.9, adult; R06.89 Other abnormalities of breathing; Y92.121 Bathroom in nursing home as the place of occurrence of the external cause; Z79.891 Long term (current) use of opiate analgesic; E11.42 Type 2 diabetes mellitus with diabetic polyneuropathy; H91.90 Unspecified hearing loss, unspecified ear; Z90.722 Acquired absence of ovaries, bilateral; K59.09 Other constipation; R11.0 Nausea; Z86.010 Personal history of colon polyps; Z92.21 Personal history of antineoplastic chemotherapy; Z87.19 Personal history of other diseases of the digestive system
CPT/HCPCS: 36415; 36600; 71045; 71046; 72170; 72192; 76705; 80048; 80053; 80076; 80162; 81003; 81015; 82140; 82247; 82248; 82607; 82728; 82784; 82803; 83010; 83036; 83540; 83550; 83605; 83615; 83690; 83735; 83880; 83883; 84100; 84134; 84145; 84155; 84165; 84443; 84484; 85014; 85018; 85025; 85027; 85045; 85049; 85260; 85362; 85384; 85520; 85610; 85730; 86140; 86850; 86880; 86900; 86901; 86922; 87086; 87641; 88305; 88311; 93005; 93306; 94002; 94640; 99232; 99233; 99284; A9270-GY; C1776; C8929; G8978-GP-CN; G8979-GP-CK; G8981-GP-CN; G8982-GP-CJ; J0330; J0690; J1100; J1160; J1170; J1200; J1644; J1650; J1940; J2270; J2405; J2704; J3010; J3480; J3490; P9040